=== PATIENT | male | born 1985 | race Caucasian/White ===

== ENCOUNTER 2025-05-26 20:07 | Emergency (ER) | payer OTHER, SELFPAY ==
[2025-05-26 20:15] VITALS: BP 155/99; PULSE 89; RESP 16; TEMP 36.6; O2SAT 97
--- NOTE | 2025-05-26 21:28 | ED_ITS ---
HPI - Dental/Oral General Chief complaint: Dental/Oral Stated complaint: dental pain Time Seen by Provider: 05/26/25 20:35 History of Present Illness HPI Narrative: 39-year-old male with history of trigeminal neuralgia status post surgery with remission presenting to the emergency department with dental pain. He has had on multiple dental surgeries and root canals before and feels like he needs another one. Contacted his on-call dentist and has an appointment tomorrow afternoon. Requesting something for pain relief around until then. Does not want antibiotics until then. Tried some oral Excedrin and Tylenol and or gel without any improvement. Has had pain relief with opiates before. No systemic symptoms. No traumatic injuries. Teeth map: 2 1. Pain with palpation without any abscess formation or periapical disease. Multiple other areas with previous root canal is and dental work done. Related Data Allergies Allergy/AdvReac Type Severity Reaction Status Date / Time No Known Allergies Allergy Verified 05/26/25 20:08 Exam 2 Narrative: GENERAL: [Well-appearing, well-nourished, and in no acute distress.] HEAD: [Normocephalic, atraumatic.] EYES: [PERRLA and EOMI.] ENT: Nares clear, no rhinorrhea or epistaxis. Mucous membranes moist. Posterior 1st molar has tenderness to palpation but no fluctuant masses or abscess formation. No periapical disease or no gingival disease. Other areas in the mouth with previous dental work, caps, root canal is noted. NECK: Supple. CHEST: Symmetric chest rise, no respiratory distress EXTREMITIES: Normal range of motion. [No edema.] SKIN: Warm, dry, no rash. NEURO: [No focal deficits]. Alert and oriented [x3.] PSYCH: [Normal mood and affect.] Course Vital Signs Vital signs: Vital Signs Temperature 36.6 C 05/26/25 20:15 Pulse Rate 89 05/26/25 20:15 Respiratory Rate 16 05/26/25 20:15 Blood Pressure 155/99 H 05/26/25 20:15 Pulse Oximetry 97 05/26/25 20:15 Oxygen Delivery Room Air 05/26/25 20:15 Temperature 36.6 C 05/26/25 20:15 Pulse Rate 89 05/26/25 20:15 Respiratory Rate 16 05/26/25 20:15 Blood Pressure 155/99 H 05/26/25 20:15 Pulse Oximetry 97 05/26/25 20:15 Oxygen Delivery Room Air 05/26/25 20:15 Procedures Nerve Block Nerve Block 1: Nerve block date: 05/26/25 Nerve block time: 22:15 Time out performed: Yes Local Anesthetic: bupivacaine 0.5% Amount of anesthesia used (mL): 5 Side: right Intraoral Nerve Block: superior alveolar and other (Posterior superior alveolar) Procedure Successful: Yes Patient Tolerated Procedure: well and no complications Complications: none MDM - Dental/Oral MDM Narrative Medical decision making narrative: 39-year-old male with history of trigeminal neuralgia status post surgery with remission presenting to the emergency department with dental pain. He has had on multiple dental surgeries and root canals before and feels like he needs another one. Contacted his on-call dentist and has an appointment tomorrow afternoon. Requesting something for pain relief around until then. Does not want antibiotics until then. Tried some oral Excedrin and Tylenol and or gel without any improvement. Has had pain relief with opiates before. No systemic symptoms. No traumatic injuries. Posterior 1st molar has tenderness to palpation but no fluctuant masses or abscess formation. No periapical disease or no gingival disease. Patient is hemodynamically stable. Offered the patient a posterior superior alveolar nerve block for pain control which he accepted after discussion. Also given a dose of oxycodone p.o.. Has an appointment with his dentist tomorrow and will discharge with several doses of oxycodone as needed for breakthrough pain until he can see them. Given return precautions and discharged afterwards. Discharge Plan Discharge Clinical Impression: Toothache Patient Disposition: Home Condition: Stable Instructions: Antibiotic Form, Toothache (ED) Additional Instructions: Dentist tomorrow. Return with any emergent concerns. We have sent some oxycodone to [facility] on [address] in [place]. Patient Language: Macedonian Prescriptions: New oxycodone 5 mg tablet 5 mg PO Q8H PRN (Reason: pain) Qty: 14 0RF Follow-up/Referrals: PHYSICIAN NOT ON STAFF,NONSTAFF [Primary Care Provider] Time of Disposition: 22:53
[2025-05-26] MEDS: oxyCODONE HCL (*CRX) 5 MG TAB IR PO (21:32)
== END 2025-05-26 23:00 | disposition home or self-care (01) ==
PROVIDERS: Emergency Provider Student in an Organized Health Care Education/Training Program
DX: K08.89 Other specified disorders of teeth and supporting structures (principal)
CPT/HCPCS: 64400; 99283; A9270

== ENCOUNTER 2025-05-28 23:26 | Emergency (ER) | payer OTHER, SELFPAY ==
[2025-05-28 23:30] VITALS: BP 182/98; PULSE 65; RESP 20; TEMP 36.5; O2SAT 100
--- NOTE | 2025-05-29 05:19 | ED.DENTAL ---
HPI - Dental/Oral General Chief complaint: Dental/Oral Stated complaint: dental pain Time Seen by Provider: 05/29/25 04:33 History of Present Illness HPI Narrative: 39-year-old male presenting with pain in his right jaw consistent with trigeminal neuralgia. Patient has a history of longstanding trigeminal neuralgia and previously had surgical operation of this in [place]. Has not had anybody to follow-up with him here and [place]. Previously been on medications for this but no longer taking it after he had successful surgery. Was here several days ago with a dental pain infection and underwent a root canal with his surgeon. Root canal successful and had extraction of disease and infection. Patient still completing his antibiotics but thinks that the infection and operation have now reached triggered his trigeminal neuralgia pain. Distribution of the V2 and V3 nerve root on the right side of his face and very sharp electrical sensations. States that within has helped him previously was ketamine but he was never tried on Tegretol sumatriptan or other therapies like gabapentin but has read about them. Asking about ketamine prescription. States the oxycodone he got prescribed by myself several days ago was not helping. Related Data Allergies Allergy/AdvReac Type Severity Reaction Status Date / Time No Known Allergies Allergy Verified 05/29/25 02:38 Review of Systems Review of Systems: As reviewed above in HPI Exam Narrative: GENERAL: [Well-appearing, well-nourished, and in no acute distress.] HEAD: [Normocephalic, atraumatic.] EYES: [PERRLA and EOMI.] ENT: Nares clear, no rhinorrhea or epistaxis. Mucous membranes moist. NECK: Supple. CHEST: [Clear to auscultation. No respiratory distress.] HEART: [Regular rate and rhythm]. No murmur heard. [Normal peripheral pulses.] ABDOMEN: [Soft, nondistended], [nontender], [No rigidity or guarding] EXTREMITIES: Normal range of motion. [No edema.] SKIN: Warm, dry, no rash. NEURO: [No focal deficits]. Alert and oriented [x3.] PSYCH: [Normal mood and affect.] Course Vital Signs Vital signs: Vital Signs Temperature 36.5 C 05/28/25 23:30 Pulse Rate 65 05/28/25 23:30 Respiratory Rate 20 05/28/25 23:30 Blood Pressure 182/98 H 05/28/25 23:30 Pulse Oximetry 100 05/28/25 23:30 Temperature 36.5 C 05/28/25 23:30 Pulse Rate 62 05/29/25 06:07 Respiratory Rate 18 05/29/25 06:07 Blood Pressure 176/91 H 05/29/25 06:07 Pulse Oximetry 99 05/29/25 06:07 MDM - Dental/Oral MDM Narrative Medical decision making narrative: 39-year-old male presenting with pain in his right jaw consistent with trigeminal neuralgia. Patient has a history of longstanding trigeminal neuralgia and previously had surgical operation of this in [place]. Has not had anybody to follow-up with him here and [place]. Previously been on medications for this but no longer taking it after he had successful surgery. Was here several days ago with a dental pain infection and underwent a root canal with his surgeon. Root canal successful and had extraction of disease and infection. Patient still completing his antibiotics but thinks that the infection and operation have now reached triggered his trigeminal neuralgia pain. Distribution of the V2 and V3 nerve root on the right side of his face and very sharp electrical sensations. States that within has helped him previously was ketamine but he was never tried on Tegretol sumatriptan or other therapies like gabapentin but has read about them. Asking about ketamine prescription. States the oxycodone he got prescribed by myself several days ago was not helping. Given patient's historical elements he likely does have recurrence of his trigeminal neuralgia pain. No further urgent or emergent workup needed at this juncture and we will treat him symptomatically. Will not be able to on her patient's inquiry about ketamine prescription and he will have to follow up with his specialist to get something along those lines but did offer him first-line therapy for trigeminal neuralgia which is Tegretol given a dose of 200 mg p.o. as well as sumatriptan subcutaneous injection. Will be discharged with Tegretol prescription and referral to Neurology here for follow-up. Medical Records Attestation: I reviewed the patient's medical records. Discharge Plan Discharge Clinical Impression: Trigeminal nerve disease Patient Disposition: Home Condition: Stable Instructions: Antibiotic Form, Carbamazepine (By mouth), Trigeminal Neuralgia (ED) Additional Instructions: Please follow-up with the provided neurologist for trigeminal neuralgia medication titration. You will ultimately need to be referred to a surgeon that can help with this most often located within the [facility] and [facility] systems. We have prescribed you Tegretol to try and take and be titrated outpatient for symptom control. Talk to your outpatient care providers for further interventions. Patient Language: Tamazight Prescriptions: New carbamazepine [Tegretol] 200 mg tablet 200 mg PO Q12H Qty: 60 0RF carbamazepine [Tegretol] 200 mg tablet 200 mg PO Q12H Qty: 60 0RF No Action oxycodone 5 mg tablet 5 mg PO Q8H PRN (Reason: pain) Qty: 14 0RF Follow-up/Referrals: PHYSICIAN,SILL WORKER [Primary Care Provider, Internal Medicine] Time of Disposition: 05:24
[2025-05-29 05:45] VITALS: BP 176/91; PULSE 62; RESP 18; O2SAT 99
[2025-05-29 06:07] VITALS: BP 176/91; PULSE 62; RESP 18; O2SAT 99
== END 2025-05-29 06:10 | disposition home or self-care (01) ==
PROVIDERS: Emergency Provider Student in an Organized Health Care Education/Training Program
DX: G50.0 Trigeminal neuralgia (principal)
CPT/HCPCS: 96372; 99283; A9270; J3030

== ENCOUNTER 2025-05-29 23:52 | Emergency (ER) | payer OTHER, SELFPAY ==
--- OUTSIDE RECORDS SUMMARY | 2025-05-29 23:53 | XMS_ITS | Continuity of Care Document ---
Author Name [facility] Organization [facility] Care Team Providers Care Coloring Room Man Name Role Phone [facility] Unavailable Unavailable Problems Combined list of problems from Department of Defense and Veterans Affairs facilities. It does not include entries that were removed or entered in error. 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 Unknown Organization Trigeminal neuralgia Active 08/19/19 [address] [place] [address] ASSESSMENT, POST-DEPLOYMENT, DOCUMENTED ON [id number] Inactive 08/23/19 19 Condition [facility] Encounter for issue of other medical certificate Inactive 05/28/20 18 Condition [facility] Malignant neoplasm of parotid gland Active 07/26/19 14 Condition Unknown Organization neck sprain Inactive Condition DoD parotid neoplasm Active Condition DoD otitis media acute serous right ear Inactive Condition DoD lump in / on the skin Inactive Condition [facility] visit for: services physical Inactive Condition [facility] visit for: services flight physical Inactive Condition DoD Cervical segmental dysfunction Active Condition [address] [place] [address] Degeneration of thoracic intervertebral disc Active Condition [address] [place] [address] Sacral somatic dysfunction Active Condition [address] [place] [address] Medications Combined list of outpatient medications from Department of Defense and Veterans Affairs facilities.Medications provided include 1) outpatient medications from the last 15 months, and 2) patient-reported medications. Medication Details Route Status Indication(s) Patie nt Instructions Prescription Expires Prescription Number Last Dispense Date Ordering Provider Order Date Order Qty Source acetaminoph en 325 mg oral tablet 2 tab(s), Oral, every 6 hr, PRN pain or fever, # 80 tab(s), 0 total refill(s ), Acute, 06/24/25 12:00:00 AM [employer], Pharmacy : [facility] #[id number] Oral (given by mouth) Ordered 06/24/20252024 80.0 0055C-3 [facility] acetaminoph en 325 mg oral tablet 2 tab(s), Oral, every 6 hr, PRN pain or fever, # 50 tab(s), 0 total refill(s ), Acute, 01/15/23 2:00:00 AM CDT, Pharmacy : [facility] Oral (given by mouth) Complet ed 01/15/2023 3 2022 50.0 1750C-D [facility] Afrin 0.05% nasal spray 2 spray(s) , Nostril- Both, BID, # 15 mL, 0 total refill(s ), Acute, Pharmacy : [facility] Nostri l-Both (into the nose) Complet ed 01/20/2021 1 2020 15.0 0014A-D [facility] amoxicillin 500 mg oral capsule 1 cap(s), Oral, TID, X 5 days, # 15 cap(s), 0 total refill(s ), Acute, 06/01/25 9:48:00 AM [employer], Pharmacy : [facility] #[id number], Dental infectio n, treatmen t Oral (given by mouth) Ordered 06/01/20252024 15.0 0055C-3 [facility] amoxicillin 500 mg oral capsule 1 cap(s), Oral, TID, X 5 days, # 15 cap(s), 0 total refill(s ), Acute, 01/13/23 11:48:00 AM CDT, Pharmacy : [facility] Oral (given by mouth) Complet ed 01/13/2023 3 2022 15.0 1750C-D [facility] amoxicillin 500 mg oral capsule 1 cap(s), Oral, TID, X 7 days, # 21 cap(s), 0 total refill(s ), Acute, 02/13/20 3:18:00 PM CDT, Route to [facility] Oral (given by mouth) Complet ed 02/13/2020 0 2019 21.0 1750D [facility] amoxicillin 500 mg oral capsule 1 cap(s), Oral, TID, Take 1 cap TID until gone., X 7 days, # 21 cap(s), 0 total refill(s ), Acute, 11/13/19 3:53:00 PM CDT, Route to [facility] Oral (given by mouth) Complet ed 11/13/2019 [address] [place] [address] Augmentin 875 mg-125 mg oral tablet 1 tab(s), Oral, every 12 hr, X 7 days, # 14 tab(s), 0 total refill(s ), Acute, 07/22/21 1:29:00 AM [employer], Pharmacy : [facility] Oral (given by mouth) Complet ed 07/22/2021 5 2020 14.0 0014A-D [facility] [place] Sinus Rinse Kit nasal powder for reconstitut ion See Instruct ions, Dissolve the contents of one packet in 8 oz of purified /filtere d water and instill into sinuses as directed , # 50 EA, 0 total refill(s ), [facility], Pharmacy : [facility] Ordered Acute upper respiratory infection, unspecified 5 2024 50.0 0055C-[address] [place] [address] Bactroban 2% topical ointment 1 appl(s), Topical, BID, Apply to both nostrils , # 22 g, 0 total refill(s ), Acute, Pharmacy : [facility] Topica l (on the skin) Complet ed 01/22/2021 1 2020 22.0 0014A-D [facility] betamethaso ne dipropionat e 0.05% topical cream 1 appl(s), Topical, Daily, APPLY TO AFFECTED AREA NIGHTLY FOR NO MORE THAN 2 WKS, # 15 g, 0 total refill(s ), Acute, Route to [facility] Topica l (on the skin) Complet ed Dermatitis, unspecified 05/08/20202019 15.0 0014C-D [facility] chlorhexidi ne 0.12% mucous membrane liquid 15 mL, Oral, BID, swish and spit; do not swallow, # 473 mL, 0 total refill(s ), [facility], [facility] pharmacy dispense (Rx) Oral (given by mouth) Discont inued 06/09/2021 0 2020 473.0 1750C-D [facility] Colace 100 mg oral capsule 1 cap(s), Oral, BID, PRN constipa tion, # 60 cap(s), 0 total refill(s ), [facility], Pharmacy : [facility] Oral (given by mouth) Complet ed 05/26/2023 3 2022 60.0 0014A-D [facility] diazePAM 10 mg oral tablet diazePAM 10 mg oral tablet Start Date: 03/09/19 Stop Date: 09/19/19 Status: Disconti dino Repeat number: 1 Discont inued 09/19/20192019 No Facilit y Access gabapentin 100 mg oral capsule 2 cap(s), Oral, TID, # 60 cap(s), 0 total refill(s ), [facility], Pharmacy : [facility] Oral (given by mouth) Complet ed 05/26/2023 3 2022 60.0 0014A-D [facility] gabapentin 300 mg oral capsule 1 cap(s), Oral, TID, # 270 cap(s), 3 total refill(s ), [facility], Pharmacy : [facility] Oral (given by mouth) Discont inued Encounter for issue of repeat prescription 03/04/2022 2 2021 270.0 0014C-D [facility] gabapentin 300 mg oral capsule 1 cap(s), Oral, TID, # 90 cap(s), 1 total refill(s ), Hard Stop, 10/30/21 6:21:35 PM CDT, Pharmacy : [facility] Oral (given by mouth) Complet ed Encounter for issue of repeat prescription 10/30/2021 2 2021 90.0 0014C-D [facility] gabapentin 300 mg oral capsule 1 cap(s), Oral, TID, # 90 cap(s), 0 total refill(s ), Hard Stop, 09/02/21 6:19:00 PM [employer], Pharmacy : [facility] Oral (given by mouth) Complet ed 09/03/2021 2 2021 90.0 0014C-D [facility] gabapentin 300 mg oral capsule 1 cap(s), Oral, TID, X 7 days, # 21 cap(s), 0 total refill(s ), Hard Stop, 08/07/21 3:53:20 PM [employer], Pharmacy : [facility] Oral (given by mouth) Complet ed 08/07/2021 2 2021 21.0 0014A-D [facility] gabapentin 300 mg oral capsule 1 cap(s), Oral, TID, # 90 cap(s), 3 total refill(s ), Hard Stop, 01/15/22 1:12:25 PM CDT, Pharmacy : [facility] Oral (given by mouth) Complet ed Encounter for issue of repeat prescription 01/15/2022 2 2021 90.0 0014C-D [facility] gabapentin 300 mg oral capsule 2 cap(s), Oral, TID, take two capsules by mouth three times per day, # 180 cap(s), 1 total refill(s ), Maintena nce, Pharmacy : [facility] Oral (given by mouth) Discont inued Atypical facial pain 03/04/20222021 180.0 0004C-A [facility]-C-42n [facility] gabapentin 300 mg oral capsule 1 cap(s), Oral, BID, # 540 cap(s), 1 total refill(s ), Maintena nce, Pharmacy : [facility] Oral (given by mouth) Discont inued Atypical facial pain 03/04/20222021 540.0 0014C-D [facility] gabapentin 300 mg oral capsule 2 cap(s), Oral, TID, take two capsules by mouth three times per day, # 540 cap(s), 1 total refill(s ), [facility], Pharmacy : [facility] Oral (given by mouth) Discont inued Atypical facial pain 08/19/2022 2 2022 540.0 0004C-A F-C-42n [facility] gabapentin 300 mg oral capsule See Instruct ions, take up to three capsules by mouth three times per day, as directed by your physicia n, # 810 cap(s), 2 total refill(s ), [facility], Pharmacy : [facility] Complet ed Atypical facial pain 05/26/2023 3 2022 810.0 0014C-D [facility] HYDROCODONE -ACETAMINOP HEN (HYDROCODON E/ACETAMINO PHEN), 7.5-325MG, TABLET, ORAL, MALLINCKROD T PH, 50 HYDROCOD ONE-ACET AMINOPHE N (HYDROCO DONE/SARA TAMINOPH EN), 7.5-325M G, TABLET, ORAL, MALLINCK RODT PH, 50 Start Date: 03/09/19 Stop Date: 09/19/19 Status: Disconti nuwarren Repeat number: 1 Discont inued 09/19/20192019 No Facilit y Access ibuprofen 600 mg oral tablet 1 tab(s), Oral, every 6 hr, # 40 tab(s), 0 total refill(s ), Acute, 06/24/25 12:00:00 AM [employer], Pharmacy : [facility] #[id number] Oral (given by mouth) Ordered 06/24/20252024 40.0 0055C-3 [facility] ibuprofen 600 mg oral tablet 1 tab(s), Oral, every 6 hr, # 40 tab(s), 0 total refill(s ), Acute, 01/15/23 2:00:00 AM CDT, Pharmacy : [facility] Oral (given by mouth) Complet ed 01/15/2023 3 2022 40.0 [facility] ibuprofen 800 mg oral tablet 1 tab(s), Oral, every 8 hr, # 30 tab(s), 0 total refill(s ), Acute, 08/20/19 2:00:00 AM [facility], [facility] pharmacy dispense (Rx) Oral (given by mouth) Complet ed 08/20/2019 0 2019 30.0 1750D [facility] ibuprofen 800 mg oral tablet 1 tab(s), Oral, every 8 hr, X 10 days, # 30 tab(s), 0 total refill(s ), Acute, 02/25/24 3:53:00 PM CDT, Pharmacy : [facility] Oral (given by mouth) Complet ed Acute nasopharyngiti s [common cold] 02/25/2024 4 2023 30.0 0014C-D [facility] ibuprofen 800 mg oral tablet 1 tab(s), Oral, every 8 hr, # 30 tab(s), 0 total refill(s ), Acute, 02/12/20 2:00:00 AM CDT, Route to [facility] Oral (given by mouth) Complet ed 02/12/2020 0 2019 30.0 [facility] ibuprofen 800 mg oral tablet 1 tab(s), Oral, every 8 hr, # 30 tab(s), 0 total refill(s ), Acute, 01/27/21 2:00:00 AM CDT, Pharmacy : [facility] Oral (given by mouth) Complet ed 01/27/2021 1 2020 30.0 0014A-D [facility] Keflex 500 mg oral capsule 1 cap(s), Oral, QID, X 7 days, # 28 cap(s), 0 total refill(s ), Acute, 09/26/19 12:32:00 PM [facility], [facility] pharmacy dispense (Rx) Oral (given by mouth) Complet ed Inflammatory disorders of scrotum 09/26/2019 0 2019 28.0 0014C-D [facility] Keflex 500 mg oral capsule 1 cap(s), Oral, QID, X 7 days, # 28 cap(s), 0 total refill(s ), Acute, 01/22/21 8:34:00 AM CDT, Pharmacy : [facility] Oral (given by mouth) Complet ed 01/22/2021 1 2020 28.0 0014A-D [facility] ketoconazol e 2% topical cream 1 appl(s), Topical, Daily, APPLY TO AFFECTED AREA DAILY AT NIGHT AFTER BATHING, # 15 g, 0 total refill(s ), Acute, Route to [facility] Topica l (on the skin) Complet ed Tinea cruris 05/08/2020 0 2019 15.0 0014C-D [facility] Mucinex D 60 mg-600 mg oral tablet, extended release 2 tab(s), Oral, BID, PRN congesti on, X 9 days, # 36 tab(s), 0 total refill(s ), Acute, Pharmacy : [facility] Oral (given by mouth) Discont inued Acute nasopharyngiti s [common cold] 02/15/20242023 36.0 0014C-D [facility] Mucinex D Max Strength 120 mg-1200 mg oral tablet, extended release 1 tab(s), Oral, every 12 hr, X 14 days, # 28 tab(s), 0 total refill(s ), Acute, Pharmacy : [facility] Oral (given by mouth) Complet ed Acute nasopharyngiti s [common cold] 02/29/2024 4 2023 28.0 0014C-D [facility] naloxone 4 mg/0.1 mL nasal spray See Instruct ions, [place] one dose in one nostril, may repeat every 2 to 3 minutes in alternat ing nostrils until patient responds or medical assistan ce becomes availabl e, # 2 EA, 0 total refill(s ), Maintena nce, Pharmacy : [facility] Complet ed 05/26/20232022 2.0 0014C-D [facility] Narcan 4 mg/0.1 mL nasal spray [2EA] See Rx Instruct ions, Nostril- Both, As Directed , # 2 EA, 0 total refill(s ), Hard Stop Nostri l-Both (into the nose) Discont inued 10/23/2022 3 2022 2.0 Ambul[facility] or[facility] Pharmac y [place] 10 mg-325 mg oral tablet 1 tab(s), Oral, every 4 hr, PRN pain (severe) , # 40 tab(s), 0 total refill(s ), Acute, 10/29/22 2:00:00 AM CDT, [facility] Oral (given by mouth) Complet ed 10/29/2022 3 2022 40.0 0014A-D [facility] [place] 5 mg-325 mg oral tablet 2 tab(s), Oral, every 4 hr, PRN pain, Take 1 tab at first, if not improvem ent after 30 min to 1 hr can take a 2nd tab. 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 not to exceed 8 tablets/ day, # 15 tab(s), 0 total refill(s ), Acute, 08/07/21 4:25:00 PM [employer], Pharmacy : [facility] Oral (given by mouth) Discont inued 08/07/2021 2 2021 15.0 0014A-D [facility] [place] 5 mg-325 mg oral tablet 2 tab(s), Oral, every 4 hr, PRN pain, Take 1 tab at first, if not improvem ent after 30 min to 1 hr can take a 2nd tab. 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 not to exceed 8 tablets/ day, # 5 tab(s), 0 total refill(s ), Acute, 08/12/21 2:00:00 AM [employer], Pharmacy : [facility] Oral (given by mouth) Complet ed 08/12/2021 2 2021 5.0 0014C-D [facility] [place] 5 mg-325 mg oral tablet 1 tab(s), Oral, every 4 hr, PRN pain, X 7 days, # 18 tab(s), 0 total refill(s ), Acute, 02/13/20 3:18:00 PM CDT, Route to [facility] Oral (given by mouth) Complet ed 02/13/2020 0 2019 18.0 1750C-D [facility] [place] 5 mg-325 mg oral tablet 1 tab(s), Oral, every 6 hr, PRN pain, Take 1 tab q4-6h prn pain not to exceed 8 tablets/ day., # 12 tab(s), 0 total refill(s ), Acute, 11/09/19 2:00:00 AM CDT, Route to [facility] Oral (given by mouth) Complet ed 11/09/2019 0 2019 12.0 1750-D [facility] oxyCODONE 5 mg oral tablet 1 tab(s), Oral, every 6 hr, PRN pain, # 20 tab(s), 0 total refill(s ), Acute, 01/22/21 2:00:00 AM CDT, Pharmacy : [facility] Oral (given by mouth) Complet ed 01/22/2021 1 2020 20.0 0014A-D [facility] PreviDent 5000 Plus topical paste See Instruct ions, Apply 1 pea sized amount to toothbru sh. [place] thorough ly at bedtime as directed by provider ., # 51 g, 2 total refill(s ), Eryn calix, [facility] pharmacy dispense (Rx) Ordered 0 2018 51.0 1750C-D [facility] Saline Mist 0.65% nasal spray 1 spray(s) , Nostril- Both, 8 times per day, PRN dry nasal passages , # 44 mL, 0 total refill(s ), Maintena fifi, Pharmacy : [facility] Nostri l-Both (into the nose) Discont inued 06/09/2021 1 2020 44.0 0014A-D [facility] triamcinolo ne 0.5% cream [15g] = 1 appl(s), Topical, # 15 g, 0 total refill(s ), Hard Stop Topica l (on the skin) Complet ed 04/08/20212020 15.0 Ambulat ory Pharmac y Tylenol 325 mg oral tablet 2 tab(s), Oral, every 4 hr, PRN pain or fever, # 50 tab(s), 0 total refill(s ), Acute, 01/27/21 2:00:00 AM CDT, Pharmacy : [facility] Oral (given by mouth) Complet ed 01/27/2021 1 2020 50.0 0014A-D [facility] Tylenol Caplet Extra Strength 500 mg oral tablet 1 tab(s), Oral, every 4 hr, PRN pain or fever, # 50 tab(s), 0 total refill(s ), Acute, 08/19/19 2:00:00 AM [employer], [facility] pharmacy dispense (Rx) Oral (given by mouth) Complet ed 08/19/2019 0 2019 50.0 1750D [facility] Tylenol with Codeine #3 oral tablet 1 tab(s), Oral, every 6 hr, PRN pain, Take one tab by mouth every 6 hr as needed for dental pain. not to exceed 4000 mg acetamin ophen per day, # 12 tab(s), 0 total refill(s ), Acute, [facility] Oral (given by mouth) Complet ed 02/12/2020 0 2019 12.0 0D [facility] Zofran ODT 4 mg oral tablet, disintegrat ing 1 tab(s), Oral, every 8 hr, PRN nausea/v omiting, X 3 days, # 9 tab(s), 0 total refill(s ), Acute, 08/07/21 4:57:00 PM [employer], Pharmacy : [facility] Oral (given by mouth) Complet ed 08/07/2021 2 2021 9.0 0014A-D [facility] Allergies, Adverse Reactions, Alerts Combined list of allergies from Department of Defense and Veterans Affairs facilities. It does not include entries that were removed or entered in error. Substance Category Reaction Severity Reaction type Status Date Reported Comments Source No Known Allergies Drug allergy (disorder) active 10/14/2022 [employer] Immunizations Combined list of available immunizations from the Department of Defense and Veterans Affairs facilities. 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 Status Comments Source typhoid vaccine, inactivated 2022 ESTRELLALUCER O Shoul breezy, right (delt oid) [id number] sanofi pasteur complet ed typhoid vaccine, inactivat ed 05/25/23 Given 0014C-D [facility] tetanus-dipht h toxoids (Td) adult/adol 2022 ESTRELLALUCER O Shoul breezy, right (delt oid) [id number] sanofi pasteur complet ed tetanus-d iphth toxoids (Td) adult/ado l 05/25/23 Given 0014C-D [facility] influenza virus vaccine, inactivated 2022 ESTRELLALUCER O Domenicaul breezy, left (delt oid) [id number] 150 [employer], Wink complet ed influenza virus vaccine, inactivat ed 05/25/23 Given 0014C-D [facility] meningococcal conjugate vaccine 2022 ESTRELLALUCER O Shoul breezy, left (delt oid) [id number] sanofi pasteur complet ed meningoco ccal conjugate vaccine 05/25/23 Given 0014C-D [facility] influenza virus vaccine, inactivated 2021 JACOBO Davis breezy, right (delt oid) [id number] ID [employer] complet ed influenza virus vaccine, inactivat ed 07/10/22 Given 0014C-D [facility] COVID Vaccine Moderna 2021 Walker Davis breezy, left (delt oid) [id number] Moderna [employer] complet ed COVID Vaccine Moderna 08/20/21 Given 0014C-D [facility] influenza virus vaccine, inactivated 2020 RONNIE NAZARIO 88 complet ed influenza virus vaccine, inactivat ed 07/04/21 Recorded 0014C-D [facility] typhoid vaccine, inactivated 2020 ALISHASMARSH Shoul breezy, right (delt oid) [id number] sanofi pasteur complet ed typhoid vaccine, inactivat ed 01/13/21 Given 0014C-D [facility] influenza virus vaccine, inactivated 2020 ALISHASMARSH Shoul breezy, right (delt oid) [id number] 141 [employer], [employer] complet ed influenza virus vaccine, inactivat ed 01/13/21 Given 0014C-D [facility] anthrax vaccine 2020 ALISHASMARSH Shoul breezy, right (delt oid) [id number] 24 Emergent [employer] Inc[employer] complet ed anthrax vaccine 01/13/21 Given 0014C-D [facility] COVID Vaccine Moderna 2020 GLORIAPPINEDA Shoul breezy, left (delt oid) [id number] 207 Moderna [employer] complet ed COVID Vaccine Moderna 08/29/20 Given 0014C-D [facility] COVID Vaccine Moderna 2020 STEVENYERA Shoul breezy, left (delt oid) [id number] 207 Moderna [place], Inc. complet ed COVID Vaccine Moderna 08/02/20 Given 0014C-D [facility] anthrax vaccine 2019 JOSLINESTRAUS S Shoul breezy, left (delt oid) [id number] 24 [employer] complet ed anthrax vaccine 12/26/19 Given 0014C-D [facility] anthrax vaccine 2018 [id number] 24 [employer] complet ed anthrax vaccine 10/28/18 Given 1750C-D [facility] anthrax vaccine 7 2018 [id number] 24 [employer] Sprague (MIP) complet ed anthrax vaccine DoD typhoid Vi capsular polysaccharid e vac 2018 [id number] sanofi pasteur complet ed typhoid Vi capsular polysacch aride vac 08/23/18 Given 1750C-D [facility] typhoid Vi capsular polysaccharid e vaccine 3 2018 [id number] Sanofi Pasteur (PMC) complet ed typhoid Vi capsular polysacch aride vaccine DoD measles virus vaccine 0 2017 05 () Not Given measles virus vaccine DoD rubella virus vaccine 0 2017 06 () Not Given rubella virus vaccine DoD mumps virus vaccine 0 2017 07 () Not Given mumps virus vaccine DoD measles/mumps /rubella virus vaccine 2017 [id number] Merck & Company Inc complet ed measles/m umps/rube lla virus vaccine 05/19/18 Given 1750C-D [facility] measles, mumps and rubella virus vaccine 1 2017 [id number] 03 Merck (MSD) complet ed measles, mumps and rubella virus vaccine DoD influenza, injectable, quadrivalent- pf 2017 [id number] 150 [employer] complet ed influenza , injectabl e, quadrival ent-pf 05/04/18 Given 1750C-D [facility] Influenza, injectable, quadrivalent, preservative free 7 2017 [id number] 150 Seqirus (SEQ) comple t ed Influenza , injectabl e, quadrival ent, preservat sanjana free DoD anthrax vaccine 2017 [id number] 24 [employer] complet ed anthrax vaccine 09/10/17 Given 1750C-D [facility] anthrax vaccine 6 2017 [id number] 24 [employer] (MIP) complet ed anthrax vaccine DoD Influenza, inj, MDCK, quadrivalent- pf 2016 [id number] 171 [employer] complet ed Influenza , inj, MDCK, quadrival ent-pf 07/05/17 Given 1750C-D [facility] meningococcal A,C,Y,W-135 (MCV4P) 2016 [id number] 114 sanofi pasteur complet ed meningoco ccal A,C,Y,W-1 35 (MCV4P) 07/05/17 Given 1750C-D [facility] meningococcal polysaccharid e (groups A, C, Y and W-135) diphtheria toxoid conjugate vaccine (MCV4P) 2 2016 [id number] 114 Sanofi Pasteur (PMC) complet ed meningoco ccal polysacch aride (groups A, C, Y and W-135) diphtheri a toxoid conjugate vaccine (MCV4P) DoD Influenza, injectable, Madin Aleah Canine Kidney, preservative free, quadrivalent 6 2016 [id number] Seqirus (SEQ) comple t ed Influenza , injectabl e, Madin [place] Canine Kidney, preservat sanjana free, quadrival ent DoD anthrax vaccine 2015 [id number] Emergent Biosolutions complet ed anthrax vaccine 07/08/16 Given 1750C-D avid [facility] anthrax vaccine 5 2015 [id number] 24 Emergent [employer] Sprague (MIP) complet ed anthrax vaccine DoD influenza, seasonal, injectable-pf 2015 [id number] Seqirus complet ed influenza , seasonal, injectabl e-pf 06/01/16 Given 1750C-D avid [facility] typhoid Vi capsular polysaccharid e vac 2015 [id number] 101 sanofi pasteur complet ed typhoid Vi capsular polysacch aride vac 06/01/16 Given 1750C-D avid [facility] typhoid Vi capsular polysaccharid e vaccine 2 2015 [id number] 101 Sanofi Pasteur (PMC) complet ed typhoid Vi capsular polysacch aride vaccine DoD Influenza, seasonal, injectable, preservative free 5 2015 [id number] 140 Seqirus (SEQ) comple t ed Influenza , seasonal, injectabl e, preservat sanjana free DoD anthrax vaccine 2015 [id number] 24 Emergent Bios[employer] complet ed anthrax vaccine 12/05/15 Given 1750C-D avid [facility] anthrax vaccine 4 2015 [id number] [employer] Sprague (MIP) complet ed anthrax vaccine DoD influenza, seasonal, injectable-pf 2014 [id number] 140 CSL Behring complet ed influenza , seasonal, injectabl e-pf 04/25/15 Given 1750C-D avid [facility] anthrax vaccine 2014 [id number] 24 Emergent [employer] complet ed anthrax vaccine 04/25/15 Given 1750C-D avid [facility] anthrax vaccine 3 2014 [id number] 24 [employer] Sprague (MIP) complet ed anthrax vaccine DoD Influenza, seasonal, injectable, preservative free 1 2014 [id number] 140 CSL [employer] (CSL) complet ed Influenza , seasonal, injectabl e, preservat sanjana free DoD anthrax vaccine 2014 [id number] 24 Emergent Biosolutions complet ed anthrax vaccine 09/20/14 Given 1750C-D avid [facility] anthrax vaccine 2 2014 [id number] 24 Emergent BioDefense [facility] ([facility]) complet ed anthrax vaccine DoD anthrax vaccine 2013 [id number] 24 Emergent Biosolutions complet ed anthrax vaccine 05/24/14 Given 1750C-D avid [facility] influenza, live, intranasal,qu adrivalent 2013 [id number] Medimmune Inc comple t ed influenza , live, intranasa l,quadriv alent 05/24/14 Given 1750C-D avid [facility] typhoid Vi capsular polysaccharid e vac 2013 [id number] 101 sanofi pasteur complet ed typhoid Vi capsular polysacch aride vac 05/24/14 Given 1750C-D avid [facility] yellow fever vaccine 2013 [id number] 37 sanofi pasteur complet ed yellow fever vaccine 05/24/14 Given 1750C-D avid [facility] anthrax vaccine 1 2013 [id number] 24 [facility] ([facility]) complet ed anthrax vaccine DoD yellow fever vaccine 1 2013 [id number] 37 Sanofi Pasteur (PMC) complet ed yellow fever vaccine DoD typhoid Vi capsular polysaccharid e vaccine 1 2013 [id number] 101 Sanofi Pasteur (PMC) complet ed typhoid Vi capsular polysacch aride vaccine DoD influenza, live, intranasal, quadrivalent 3 2013 [id number] 149 [employer] (MED) complet ed influenza , live, intranasa l, quadrival ent DoD hepatitis A-hepatitis B vaccine 2013 [id number] 104 GlaxoSmithKli tn complet ed hepatitis A-hepatit is B vaccine 10/19/13 Given 1750C-D avid [facility] hepatitis A and hepatitis B vaccine 0 2013 [id number] 104 [facility] ([facility] complet ed hepatitis A and hepatitis B vaccine DoD influenza, seasonal, injectable-pf 2012 [id number] 140 sanofi pasteur complet ed influenza , seasonal, injectabl e-pf 05/24/13 Given 1750C-D [facility] Influenza, seasonal, injectable, preservative free 0 2012 [id number] 140 Sanofi Pasteur ([facility]) complet ed Influenza , seasonal, injectabl e, preservat sanjana free DoD hepatitis A-hepatitis B vaccine 2011 [id number] 104 GlaxoSmithKli ne complet ed hepatitis A-hepatit is B vaccine 06/13/12 Given 1750C-D [facility] hepatitis A and hepatitis B vaccine 1 2011 [id number] 104 Feather[employer]Kline (SKB) complet ed hepatitis A and hepatitis B vaccine DoD hepatitis A-hepatitis B vaccine 2011 [id number] [id number] 104 GlaxoSmithKli ne complet ed hepatitis A-hepatit is B vaccine 04/27/12 Given 1750C-D [facility] hepatitis A and hepatitis B vaccine 1 2011 [id number] 104 SmithKline (SKB) complet ed hepatitis A and hepatitis B vaccine DoD tuberculin purified protein derivative 2011 [id number] 96 sanofi pasteur complet ed tuberculi n purified protein derivativ e 04/21/12 Given 1750C-D [facility] adenovirus vaccine, live 2011 [id number] 143 Teva Pharm[employer] ls complet ed adenoviru s vaccine, live 04/21/12 Given 1750C-D [facility] influenza, seasonal, injectable-pf 2011 [id number] 140 CSL Behring complet ed influenza , seasonal, injectabl e-pf 04/21/12 Given 1750C-D [facility] meningococcal A,C,Y,W-135 (MCV4P) 2011 [id number] 114 sanofi pasteur complet ed meningoco ccal A,C,Y,W-1 35 (MCV4P) 04/21/12 Given 1750C-D [facility] poliovirus vaccine, inactivated 2011 [id number] 10 sanofi pasteur complet ed polioviru s vaccine, inactivat ed 04/21/12 Given 1750C-D [facility] poliovirus vaccine, inactivated 1 2011 [id number] 10 Sanofi Pasteur ([facility]) complet ed polioviru s vaccine, inactivat ed DoD meningococcal polysaccharid e (groups A, C, Y and W-135) diphtheria toxoid conjugate vaccine (MCV4P) 1 2011 [id number] 114 Sanofi Pasteur (PMC) complet ed meningoco ccal polysacch aride (groups A, C, Y and W-135) diphtheri a toxoid conjugate vaccine (MCV4P) DoD tetanus toxoid, reduced diphtheria toxoid, and acellular pertu is vaccine, adsorbed 1 2011 [id number] 115 St[employer] (SKB) complet ed tetanus toxoid, reduced diphtheri a toxoid, and acellular pertussis vaccine, adsorbed DoD Influenza, seasonal, injectable, preservative free 1 2011 [id number] 140 [employer] (CSL) complet ed Influenza , seasonal, injectabl e, preservat sanjana free DoD Adenovirus, type 4 and type 7, live, oral 1 2011 [id number] 143 [employer] (BRR) complet ed Adenoviru s, type 4 and type 7, live, oral DoD tetanus, diphtheria, acellular pertu is 2011 PEDRO [id number] 115 EyefreightKli tn complet ed tetanus, diphtheri a, acellular pertussis 04/21/12 Recorded No Facilit y Access measles virus vaccine 0 2011 05 () Not Given measles virus vaccine DoD rubella virus vaccine 0 2011 06 () Not Given rubella virus vaccine DoD varicella virus vaccine 0 2011 21 () Not Given varicella virus vaccine DoD Results Combined list of recent chemistry, hematology and other laboratory results from [facility] and [facility], ranging from 15 months to all on record, depending upon the facility. Order Name Results Value Reference Range Date Interpretation Specimen Comments Source Molecular Infectiou s Disease Parainflue nza 4 Not Detected (10/06/24 8:56 AM) Not Detected 10/06 N [id number] [place] [address] [facility] Molecular Infectiou s Disease Respirator y Syncytial Virus Not Detected (10/06/24 8:56 AM) Not Detected 10/06 N [id number]-[id number] [place] [address] [facility] Molecular Infectiou s Disease Parainflue nza 2 Not Detected (10/06/24 8:56 AM) Not Detected 10/06 N - [address] [place] [address] Molecular Infectiou s Disease Parainflue nza 3 Not Detected (10/06/24 8:56 AM) Not Detected 10/[address] [place] [address] Molecular Infectiou s Disease Human Rhinovirus /Enterovir us Not Detected (10/06/24 8:56 AM) Not Detected 10/[address] [place] [address] Molecular Infectiou s Disease Coronaviru s HKU1 Not Detected (10/06/24 8:56 AM) Not Detected 10/[address] [place] [address] Molecular Infectiou s Disease Coronaviru s NL63 Not Detected (10/06/24 8:56 AM) Not Detected 10/[address] [place] [address] Molecular Infectiou s Disease Coronaviru s OC43 Not Detected (10/06/24 8:56 AM) Not Detected 10/[address] [place] [address] Molecular Infectiou s Disease Chlamydia pneumoniae Not Detected (10/06/24 8:56 AM) Not Detected 10/[address] [place] [address] Molecular Infectiou s Disease Coronaviru s 229E Not Detected (10/06/24 8:56 AM) Not Detected 10/[address] [place] [address] Molecular Infectiou s Disease Influenza B Not Detected (10/06/24 8:56 AM) Not Detected 10/[address] [place] [address] Molecular Infectiou s Disease Mycoplasma pneumoniae Not Detected (10/06/24 8:56 AM) Not Detected 10/[address] [place] [address] Molecular Infectiou s Disease Parainflue nza 1 Not Detected (10/06/24 8:56 AM) Not Detected 10/[address] [place] [address] Molecular Infectiou s Disease Human Metapneumo virus Not Detected (10/06/24 8:56 AM) Not Detected 10/06 N - [address] [place] [address] Molecular Infectiou s Disease Influenza A Not Detected (10/06/24 8:56 AM) Not Detected 10/06 N - [address] [place] [address] Molecular Infectiou s Disease SARS-CoV-2 PCR Not Detected 14 (10/06/24 8:56 AM) Not Detected 10/06 N Interpretiv e Data: The VideoStep COVID-19 Test contains three different assays (SARS-CoV-2 a, SARS-CoV-2d , SARS-CoV-2e ) for the detection of SARS-CoV-2. The [employer] Software interprets each of these assays independent ly and the results are combined as a final test result for the virus. SARS-CoV-2- Detected If two or more assays are 'Detected' the result on the test report will be 'Detected'. SARS-CoV-2- Not Detected-al l assays are 'Not Detected', the result on the test report will be 'Not Detected' SARS-CoV-2 Equivocal- Only one of three assays was D etected for the virus. The combination of D etected and N ot Detected assay results were inconclusiv e [address] [place] [address] Molecular Infectiou s Disease Adenovirus Not Detected (10/06/24 8:56 AM) Not Detected 10/06 N - [address] [place] [address] Molecular Infectiou s Disease Bordetella parapertus sis Not Detected (10/06/24 8:56 AM) Not Detected 10/[address] [place] [address] Molecular Infectiou s Disease Bordetella pertussis Not Detected (10/06/24 8:56 AM) Not Detected 10/[address] [place] [address] Molecular Infectiou s Disease Reason for Test? Screenin g (02/15/24 1:56 PM) 02/14 N -Da [facility] Molecular Infectiou s Disease SARS-CoV-2 PCR POSITIVE *ABN* (02/15/24 1:56 PM) 02/14 A 4A-Da [facility] Molecular Infectiou s Disease Influenza B PCR NEGATIVE (02/15/24 1:56 PM) 02/[address] [place] [address] Molecular Infectiou s Disease Influenza A PCR NEGATIVE (02/15/24 1:56 PM) 02/[address] [place] [address] Molecular Infectiou s Disease RESP SYNCYTIAL VIRUS PCR NEGATIVE (02/15/24 1:56 PM) 02/[address] [place] [address] Molecular Infectiou s Disease Streptococ cus pyogenes PCR Not Detected *NA* (02/15/24 1:56 PM) 02/[address] [place] [address] Infectiou s Disease HIV-1/O/2 Non-Reac tive 9 (05/27/23 9:52 AM) 05/27 N Interpretiv e Data: INTERPRETAT ION: This method is a screening procedure for the detection of HIV p24 Antigen and Antibodies to HIV-1, including Group O, and/or HIV-2. NON-REACTIV E: HIV-1 antigen and HIV-1 / HIV-2 antibodies were not detected. No laboratory evidence of HIV infection. A negative test result does not exclude the possibility of exposure to or infection with HIV. HIV antibodies and/or p24 antigen may be undetectabl e in some stages of the infection and in some clinical conditions. If acute HIV infection is suspected, consider submitting another specimen to a reference laboratory for HIV-1 RNA. SCREEN REACTIVE - CONFIRMATIO N TO FOLLOW: Possible presence of HIV-1antibo dies, HIV-2 antibodies and/or HIV-1 p24 antigen. Specimen will reflex to the confirmatio n testing that fulfills the Center for Disease Control and Prevention' s HIV diagnostic algorithm. Refer to [facility] Lab Guide for additional information : [email or web address] x Testing performed by Yan aguila. [id number] AFSAM EPILAB Hematolog y Neutrophil % Auto 66.0 % 45.5 - 74.0 10/23 N [facility] Hematolog y Imm. Granulocyt e Absolute 0.04 x10^9/L 0.00 - 0.75664 10/[address] [place] [address] Hematolog y Baso Absolute 0.07 x10^9/L 0.00 - 0.37542 10/[address] [place] [address] Hematolog y Lymph Absolute 2.45 x10^9/L 1.20 - 3.76876 10/[address] [place] [address] Hematolog y Neutro Absolute 6.72 x10^9/L 1.31 - 6.80352 10/[address] [place] [address] Hematolog y Eos Absolute 0.10 0.00 - 0.45 10/[address] [place] [address] Hematolog y Benson Absolute 0.79 x10^9/L 0.12 - 0.10403 10/[address] [place] [address] Hematolog y nRBC Absolute 0.00 x10^9/L 0.00 - 0.99548 10/[address] [place] [address] Hematolog y nRBC % Auto 0.0 % 10/[address] [place] [address] Hematolog y Imm. Granulocyt e % 0.4 % 10/[address] [place] [address] Hematolog y Basophil % Auto 0.7 % 0.0 - 1.0 10/[address] [place] [address] Hematolog y Lymphocyte % Auto 24.1 % 22.3 - 49.9 10/[address] [place] [address] Hematolog y Eosinophil % Auto 1.0 % 0.2 - 4.0 10/[address] Hematolog y Monocyte % Auto 7.8 % 1.0 - 8.0 10/[address] Chemistry Glucose Lvl 124 mg/dL 74 - 106 10/[address] [place] [address] Chemistry Potassium Lvl 3.8 mmol/L 3.5 - 5.1 10/[address] [place] [address] Chemistry Sodium 137 mmol/L 133 - 145 10/[address] [place] [address] Chemistry Calcium 8.6 mg/dL 8.6 - 10.2 10/[address] [place] [address] Chemistry Chloride 101 mmol/L 98 - 107 10/[address] [place] [address] Chemistry CO2 27 mmol/L 10/[address] [place] [address] Chemistry Osmo Calc 285 10/[address] [place] [address] Chemistry Creatinine Level 0.8 mg/dL 0.7 - 1.2 10/[address] [place] [address] Chemistry AGAP 9 10/23 Interpretiv e Data: ANION GAP A NORMALLY HIGH ANION GAP ACIDOSIS IN A PATIENT WITH HYPOALBUMIN AEMIA MAY APPEAR A NORMAL ANION GAP ACIDOSIS [address] [place] [address] Chemistry BUN 12 mg/dL 6 - 20 10/[address] [place] [address] Chemistry BUN/Creat Ratio 15 7 - 25 10/[address] [place] [address] Hematolog y MPV 11.1 fL 7.7 - 11.5 10/[address] [place] [address] Hematolog y RBC 4.47 x10^12/L 4.40 - 5.274311 10/[address] [place] [address] Hematolog y WBC 10.17 x10^9/L 4.40 - 11.23915 10/[address] [place] [address] Hematolog y Hematocrit 37.9 % 40.0 - 52.0 10/[address] [place] [address] Hematolog y Hemoglobin 13.2 g/dL 13.3 - 17.7 10/[address] [place] [address] Hematolog y MCH 29.5 pg 27.0 - 34.0 10/[address] [place] [address] Hematolog y MCV 84.8 fL 80.0 - 98.0 10/[address] [place] [address] Hematolog y RDW 12.8 % 11.5 - 14.5 10/23 N 4A-Da vid [facility] Hematolog y MCHC 34.8 g/dL 31.0 - 36.0 10/[address] [place] [address] Hematolog y Platelets 184 x10^9/L 150 - [id number] 10/[address] [place] [address] Coagulati on INR <0.930 0.930 - 1.200 10/[address] [place] [address] Coagulati on PT 12.70 s 12.50 - 15.20 10/[address] [place] [address] Coagulati on PTT 24.60 s 25.60 - 38.30 10/23 L Interpretiv e Data: NOTE: This critical value is for patients who are not on Heparin therapy. For patients on Heparin therapy, the critical high is anything above 70.[address] [place] [address] Chemistry eGFR CKD EPI 117 mL/min/1 .73_m2 10/23 Interpretiv e Data: Estimated Glomerular Filtration Rate (eGFR) calculated using the 2020 Chronic Kidney Disease-Epi demiology (CKD-EPI) Collaborati on creatinine equation; units of measure are mL/min/1.73 m2. Results are only valid for adults ( 1 8 years) whose serum creatinine is in steady state. eGFR calculation s are not valid for patients with acute kidney injury and for patients on dialysis. Creatinine- based estimates of kidney function may also be inaccurate in patients with reduced creatinine generation due to decreased muscle mass (e.g., malnutritio n, severe hypoalbumin emia, sarcopenia, chronic neuromuscul ar disease, amputations , severe heart failure or liver disease) and in patients with increased creatinine generation due to increased muscle mass (e.g., muscle builders, anabolic steroids) or increased dietary intake. As drug clearance is proportiona l to total GFR and not GFR indexed to body surface area (BSA), in individuals with a BSA substantial ly different than 1.73 m2, drug dosing should be based the reported eGFRvalue de-indexed from BSA by multiplying by the individual s BSA and dividing by 1.73. CKD is diagnosed based on abnormaliti es of kidney structure or function, present for >3 months, with implication s for health and disease. CKD is classified and staged based on cause, eGFR and albuminuria (quantified as urine albumin to creatinine ratio). An eGFR >60 mL/min/1.73 m2 in the absence of increased urine albumin excretion or structural abnormaliti es does not represent CKD.eGFR (mL/min/1.7 3 m2) CKD stage Interpretat ion 9 0 G1 Normal 60-89 G2 Mild decrease 45-59 G3A Mild to moderate decrease 30-44 G3B Moderate to severe decrease 15-29 G4 Severe decrease <15 G5 Kidney failure [address] [place] [address] Hematolog y nRBC Absolute 0.00 x10^9/L 0.00 - 0.44164 10/[address] [place] [address] Hematolog y nRBC % Auto 0.0 % 10/[address] [place] [address] Hematolog y Imm. Granulocyt e Absolute 0.10 x10^9/L 0.00 - 0.35736 10/[address] [place] [address] Hematolog y Baso Absolute 0.04 x10^9/L 0.00 - 0.16175 10/[address] [place] [address] Hematolog y Eos Absolute 0.01 0.00 - 0.45 10/[address] [place] [address] Hematolog y Lymphocyte % Auto 9.6 % 22.3 - 49.9 10/[address] [place] [address] Hematolog y Neutrophil % Auto 83.0 % 45.5 - 74.0 10/[address] [place] [address] Hematolog y Eosinophil % Auto 0.1 % 0.2 - 4.0 10/[address] [place] [address] Hematolog y Monocyte % Auto 6.4 % 1.0 - 8.0 10/[address] [place] [address] Hematolog y Basophil % Auto 0.3 % 0.0 - 1.0 10/[address] [place] [address] Hematolog y Neutro Absolute 13.19 x10^9/L 1.31 - 6.00911 10/[address] [place] [address] Hematolog y Imm. Granulocyt e % 0.6 % 10/[address] [place] [address] Hematolog y Benson Absolute 1.02 x10^9/L 0.12 - 0.24083 10/[address] [place] [address] Hematolog y Lymph Absolute 1.52 x10^9/L 1.20 - 3.37484 10/[address] [place] [address] Chemistry eGFR CKD EPI 118 mL/min/1 .73_m2 10/22 Interpretiv e Data: Estimated Glomerular Filtration Rate (eGFR) calculated using the 2020 Chronic Kidney Disease-Epi demiology (CKD-EPI) Collaborati on creatinine equation; units of measure are mL/min/1.73 m2. Results are only valid for adults ( 1 8 years) whose serum creatinine is in steady state. eGFR calculation s are not valid for patients with acute kidney injury and for patients on dialysis. Creatinine- based estimates of kidney function may also be inaccurate in patients with reduced creatinine generation due to decreased muscle mass (e.g., malnutritio n, severe hypoalbumin emia, sarcopenia, chronic neuromuscul ar disease, amputations , severe heart failure or liver disease) and in patients with increased creatinine generation due to increased muscle mass (e.g., muscle builders, anabolic steroids) or increased dietary intake. As drug clearance is proportiona l to total GFR and not GFR indexed to body surface area (BSA), in individuals with a BSA substantial ly different than 1.73 m2, drug dosing should be based the reported eGFRvalue de-indexed from BSA by multiplying by the individual s BSA and dividing by 1.73. CKD is diagnosed based on abnormaliti es of kidney structure or function, present for >3 months, with implication s for health and disease. CKD is classified and staged based on cause, eGFR and albuminuria (quantified as urine albumin to creatinine ratio). An eGFR >60 mL/min/1.73 m2 in the absence of increased urine albumin excretion or structural abnormaliti es does not represent CKD.eGFR (mL/min/1.7 3 m2) CKD stage Interpretat ion 9 0 G1 Normal 60-89 G2 Mild decrease 45-59 G3A Mild to moderate decrease 30-44 G3B Moderate to severe decrease 15-29 G4 Severe decrease <15 G5 Kidney failure [address] [place] [address] Chemistry AGAP 7 10/22 Interpretiv e Data: ANION GAP A NORMALLY HIGH ANION GAP ACIDOSIS IN A PATIENT WITH HYPOALBUMIN AEMIA MAY APPEAR A NORMAL ANION GAP ACIDOSIS [address] [place] [address] Chemistry Calcium 8.3 mg/dL 8.6 - 10.2 10/[address] [place] [address] Chemistry BUN 13 mg/dL 6 - 20 10/[address] [place] [address] Chemistry CO2 23 mmol/L 10/[address] [place] [address] Chemistry Chloride 106 mmol/L 98 - 107 10/[address] [place] [address] Chemistry Creatinine Level 0.8 mg/dL 0.7 - 1.2 10/[address] [place] [address] Chemistry Osmo Calc 285 10/[address] [place] [address] Chemistry BUN/Creat Ratio 16 7 - 25 10/[address] [place] [address] Chemistry Potassium Lvl 4.4 mmol/L 3.5 - 5.1 10/[address] [place] [address] Chemistry Glucose Lvl 144 mg/dL 74 - 106 10/[address] [place] [address] Chemistry Sodium 136 mmol/L 133 - 145 10/[address] [place] [address] Hematolog y Platelets 220 x10^9/L 150 - [phone] 10/[address] [place] [address] Hematolog y RDW 12.9 % 11.5 - 14.5 10/[address] [place] [address] Hematolog y MPV 11.0 fL 7.7 - 11.5 10/[address] [place] [address] Hematolog y Hematocrit 40.2 % 40.0 - 52.0 10/[address] [place] [address] Hematolog y Hemoglobin 14.3 g/dL 13.3 - 17.7 10/[address] [place] [address] Hematolog y MCH 29.8 pg 27.0 - 34.0 10/[address] [place] [address] Hematolog y MCV 83.8 fL 80.0 - 98.0 10/[address] [place] [address] Hematolog y MCHC 35.6 g/dL 31.0 - 36.0 10/[address] [place] [address] Hematolog y WBC 15.88 x10^9/L 4.40 - 11.59889 10/[address] [place] [address] Hematolog y RBC 4.80 x10^12/L 4.40 - 5.788859 10/[address] [place] [address] Coagulati on INR 1.010 0.930 - 1.200 10/[address] [place] [address] Coagulati on PT 14.10 s 12.50 - 15.20 10/[address] [place] [address] Coagulati on PTT 26.90 s 25.60 - 38.30 10/22 N Interpretiv e Data: NOTE: This critical value is for patients who are not on Heparin therapy. For patients on Heparin therapy, the critical high is anything above 70.[address] [place] [address] Infectiou s Disease MRSA by PCR Not Detected (10/21/22 12:49 PM) 10/[address] [place] [address] Blood Bank ABORh Retype O POS 10/[address] [place] [address] Blood Bank ABO/Rh Type O POS 10/[address] [place] [address] Blood Bank ABSC Negative ABSC (10/21/22 6:30 AM) 10/[address] [place] [address] Molecular Infectiou s Disease SARS-CoV-2 PCR Not Detected (10/20/22 3:25 PM) 10/[address] [place] [address] Molecular Infectiou s Disease Reason for Test? Screenin g (10/20/22 3:25 PM) 10/[address] [place] [address] Molecular Infectiou s Disease Reason for Test? Screenin g (10/13/22 2:12 PM) 10/13 N [address] [place] [address] Molecular Infectiou s Disease SARS-CoV-2 PCR Not Detected (10/13/22 2:12 PM) 10/[address] [place] [address] Hematolog y MPV 11.1 fL 7.7 - 11.5 10/[address] [place] [address] Hematolog y RDW 12.5 % 11.5 - 14.5 10/[address] [place] [address] Hematolog y Platelets 211 x10^9/L 150 - [id number] 10/[address] [place] [address] Hematolog y MCH 29.2 pg 27.0 - 34.0 10/[address] [place] [address] Hematolog y MCHC 34.2 g/dL 31.0 - 36.0 10/[address] [place] [address] Hematolog y Hemoglobin 14.9 g/dL 13.3 - 17.7 10/[address] [place] [address] Hematolog y Hematocrit 43.6 % 40.0 - 52.0 10/[address] [place] [address] Hematolog y MCV 85.3 fL 80.0 - 98.0 10/[address] [place] [address] Hematolog y WBC 4.89 x10^9/L 4.40 - 11.50284 10/[address] [place] [address] Hematolog y RBC 5.11 x10^12/L 4.40 - 5.212873 10/[address] [place] [address] Coagulati on INR 0.930 0.930 - 1.200 10/[address] [place] [address] Coagulati on PT 13.30 s 12.50 - 15.20 10/[address] [place] [address] Coagulati on Coag Therapy? Unknown (10/13/22 1:35 PM) 10/[address] Chemistry Potassium Lvl 3.7 mmol/L 3.5 - 5.1 10/[address] [place] [address] Chemistry Glucose Lvl 98 mg/dL 74 - 106 10/[address] [place] [address] Chemistry CO2 26 mmol/L 10/[address] [place] [address] Chemistry Chloride 104 mmol/L 98 - 107 10/[address] [place] [address] Chemistry Calcium 9.1 mg/dL 8.6 - 10.2 10/[address] [place] [address] Chemistry BUN 10 mg/dL 6 - 20 10/[address] [place] [address] Chemistry AGAP 11 10/13 Interpretiv e Data: ANION GAP A NORMALLY HIGH ANION GAP ACIDOSIS IN A PATIENT WITH HYPOALBUMIN AEMIA MAY APPEAR A NORMAL ANION GAP ACIDOSIS [address] [place] [address] Chemistry Creatinine Level 0.8 mg/dL 0.7 - 1.2 10/[address] [place] [address] Chemistry Osmo Calc 291 10/[address] [place] [address] Chemistry BUN/Creat Ratio 12 7 - 25 10/[address] [place] [address] Chemistry Sodium 141 mmol/L 133 - 145 10/[address] [place] [address] Coagulati on PTT 28.40 s 25.60 - 38.30 10/13 N Interpretiv e Data: NOTE: This critical value is for patients who are not on Heparin therapy. For patients on Heparin therapy, the critical high is anything above 70.[address] [place] [address] Hematolog y Imm. Granulocyt e Absolute 0.01 x10^9/L 0.00 - 0.43693 10/[address] [place] [address] Hematolog y nRBC Absolute 0.00 x10^9/L 0.00 - 0.76008 10/[address] [place] [address] Hematolog y nRBC % Auto 0.0 % 10/[address] [place] [address] Hematolog y Benson Absolute 0.41 x10^9/L 0.12 - 0.68389 10/[address] [place] [address] Hematolog y Baso Absolute 0.04 x10^9/L 0.00 - 0.20024 10/[address] [place] [address] Hematolog y Eos Absolute 0.15 0.00 - 0.45 10/[address] [place] [address] Hematolog y Lymph Absolute 1.72 x10^9/L 1.20 - 3.29512 10/[address] [place] [address] Hematolog y Neutro Absolute 2.56 x10^9/L 1.31 - 6.09183 10/[address] [place] [address] Hematolog y Imm. Granulocyt e % 0.2 % 10/[address] [place] [address] Hematolog y Basophil % Auto 0.8 % 0.0 - 1.0 10/[address] [place] [address] Hematolog y Lymphocyte % Auto 35.2 % 22.3 - 49.9 10/[address] [place] [address] Hematolog y Eosinophil % Auto 3.1 % 0.2 - 4.0 10/[address] [place] [address] Hematolog y Monocyte % Auto 8.4 % 1.0 - 8.0 10/[address] [place] [address] Hematolog y Neutrophil % Auto 52.3 % 45.5 - 74.0 10/[address] [place] [address] Chemistry eGFR CKD EPI 119 mL/min/1 .73_m2 10/13 Interpretiv e Data: Estimated Glomerular Filtration Rate (eGFR) calculated using the 2020 Chronic Kidney Disease-Epi demiology (CKD-EPI) Collaborati on creatinine equation; units of measure are mL/min/1.73 m2. Results are only valid for adults ( 1 8 years) whose serum creatinine is in steady state. eGFR calculation s are not valid for patients with acute kidney injury and for patients on dialysis. Creatinine- based estimates of kidney function may also be inaccurate in patients with reduced creatinine generation due to decreased muscle mass (e.g., malnutritio n, severe hypoalbumin emia, sarcopenia, chronic neuromuscul ar disease, amputations , severe heart failure or liver disease) and in patients with increased creatinine generation due to increased muscle mass (e.g., muscle builders, anabolic steroids) or increased dietary intake. As drug clearance is proportiona l to total GFR and not GFR indexed to body surface area (BSA), in individuals with a BSA substantial ly different than 1.73 m2, drug dosing should be based the reported eGFRvalue de-indexed from BSA by multiplying by the individual s BSA and dividing by 1.73. CKD is diagnosed based on abnormaliti es of kidney structure or function, present for >3 months, with implication s for health and disease. CKD is classified and staged based on cause, eGFR and albuminuria (quantified as urine albumin to creatinine ratio). An eGFR >60 mL/min/1.73 m2 in the absence of increased urine albumin excretion or structural abnormaliti es does not represent CKD.eGFR (mL/min/1.7 3 m2) CKD stage Interpretat ion 9 0 G1 Normal 60-89 G2 Mild decrease 45-59 G3A Mild to moderate decrease 30-44 G3B Moderate to severe decrease 15-29 G4 Severe decrease <15 G5 Kidney failure [facility] Hematolog y Platelets 221 x10^9/L 150 - [id number] 08/14 N [facility] Hematolog y MPV 12.4 fL 7.7 - 11.5 08/14 H [facility] Hematolog y RDW SD 38.1 08/14 [facility] Hematolog y RDW CV 13 % 12 - 14 08/14 N [facility] Hematolog y Hemoglobin 15.3 g/dL 13.3 - 17.7 08/14 N [facility] Hematolog y Hematocrit 42.7 % 40.0 - 52.0 08/14 N [facility] Hematolog y MCH 29.8 pg 27.0 - 34.0 08/14 N [facility] Hematolog y MCHC 35.8 g/dL 31.0 - 36.0 08/14 N [facility] Hematolog y MCV 83.2 fL 80.0 - 98.0 08/[address] [place] [address] Hematolog y WBC 6.40 x10^9/L 4.40 - 11.83380 08/[address] [place] [address] Hematolog y RBC 5.13 x10^12/L 4.40 - 5.152763 08/[address] [place] [address] Chemistry Protein Total 7.5 g/dL 6.6 - 8.7 08/[address] [place] [address] Chemistry Glucose Lvl 91 mg/dL 74 - 106 08/[address] [place] [address] Chemistry CO2 23 mmol/L 08/[address] [place] [address] Chemistry Sodium 143 mmol/L 133 - 145 08/[address] [place] [address] Chemistry Potassium Lvl 3.8 mmol/L 3.5 - 5.1 08/[address] [place] [address] Chemistry Chloride 105 mmol/L 98 - 107 08/[address] [place] [address] Chemistry Calcium 9.0 mg/dL 8.6 - 10.2 08/[address] [place] [address] Chemistry AST 46 U/L 0 - 41 08/[address] [place] [address] Chemistry ALT 55 U/L 0 - 41 08/[address] [place] [address] Chemistry BUN 9 mg/dL 6 - 20 08/[address] [place] [address] Chemistry Bilirubin Total 0.5 mg/dL 0.1 - 1.2 08/[address] [place] [address] Chemistry Alk Phos 60 U/L 40 - 129 08/[address] [place] [address] Chemistry Creatinine Level 0.7 mg/dL 0.7 - 1.2 08/[address] [place] [address] Chemistry A/G Ratio 1 meq/L 08/[address] [place] [address] Chemistry Albumin 4.4 g/dL 3.5 - 5.2 08/[address] [place] [address] Chemistry AGAP 15 08/14 Interpretiv e Data: ANION GAP A NORMALLY HIGH ANION GAP ACIDOSIS IN A PATIENT WITH HYPOALBUMIN AEMIA MAY APPEAR A NORMAL ANION GAP ACIDOSIS [address] [place] [address] Chemistry Osmo Calc 294 08/[address] [place] [address] Chemistry BUN/Creat Ratio 13 7 - 25 08/[address] [place] [address] Hematolog y Lymphocyte % Auto 31.7 % 22.3 - 49.9 08/[address] [place] [address] Hematolog y Basophil % Auto 0.6 % 0.0 - 1.0 08/[address] [place] [address] Hematolog y Neutro Absolute 3.69 x10^9/L 1.31 - 6.86384 08/[address] [place] [address] Hematolog y Monocyte % Auto 7.7 % 1.0 - 8.0 08/[address] [place] [address] Hematolog y Eosinophil % Auto 2.2 % 0.2 - 4.0 08/[address] [place] [address] Hematolog y Neutrophil % Auto 57.6 % 45.5 - 74.0 08/[address] [place] [address] Hematolog y Lymph Absolute 2.03 x10^9/L 1.20 - 3.50088 08/[address] [place] [address] Hematolog y Benson Absolute 0.49 x10^9/L 0.12 - 0.87132 08/[address] [place] [address] Hematolog y Eos Absolute 0.14 0.00 - 0.45 08/[address] [place] [address] Hematolog y Baso Absolute 0.04 x10^9/L 0.00 - 0.64584 08/[address] [place] [address] Chemistry eGFR CKD EPI 123 mL/min/1 .73_m2 08/14 Interpretiv e Data: Estimated Glomerular Filtration Rate (eGFR) calculated using the 2020 Chronic Kidney Disease-Epi demiology (CKD-EPI) Collaborati on creatinine equation; units of measure are mL/min/1.73 m2. Results are only valid for adults ( 1 8 years) whose serum creatinine is in steady state. eGFR calculation s are not valid for patients with acute kidney injury and for patients on dialysis. Creatinine- based estimates of kidney function may also be inaccurate in patients with reduced creatinine generation due to decreased muscle mass (e.g., malnutritio n, severe hypoalbumin emia, sarcopenia, chronic neuromuscul ar disease, amputations , severe heart failure or liver disease) and in patients with increased creatinine generation due to increased muscle mass (e.g., muscle builders, anabolic steroids) or increased dietary intake. As drug clearance is proportiona l to total GFR and not GFR indexed to body surface area (BSA), in individuals with a BSA substantial ly different than 1.73 m2, drug dosing should be based the reported eGFRvalue de-indexed from BSA by multiplying by the individual s BSA and dividing by 1.73. CKD is diagnosed based on abnormaliti es of kidney structure or function, present for >3 months, with implication s for health and disease. CKD is classified and staged based on cause, eGFR and albuminuria (quantified as urine albumin to creatinine ratio). An eGFR >60 mL/min/1.73 m2 in the absence of increased urine albumin excretion or structural abnormaliti es does not represent CKD.eGFR (mL/min/1.7 3 m2) CKD stage Interpretat ion 9 0 G1 Normal 60-89 G2 Mild decrease 45-59 G3A Mild to moderate decrease 30-44 G3B Moderate to severe decrease 15-29 G4 Severe decrease <15 G5 Kidney failure [facility]14[facility] Infectiou s Disease HIV-1/O/2. EPI NON-REAC TIVE 03/14 Result Comment: INTERPRETAT ION(S): This method is a screening procedure for the detection of HIV p24 Antigen and Antibodies to HIV-1, including Group O, and/or HIV-2. NON-REACTIV E: HIV-1 antigen and HIV-1 / HIV-2 antibodies were not detected. No laboratory evidence of HIV infection. A negative test results does not exclude the possibility of exposure to or infection with HIV. HIV antibodies and/or p24 antigen may be undetectabl e in some stages of the infection and in some clinical conditions. If acute HIV infection is suspected, consider submitting another specimen to a reference laboratory for HIV-1 RNA. SCREEN REACTIVE - CONFIRMATIO N TO FOLLOW: Possible presence of HIV-1 antibodies, HIV-2 antibodies and/or HIV-1 p24 antigen. Specimen will reflex to the confirmatio n testing that fulfills the Center for Disease Control and Prevention' s HIV diagnostic algorithm. Refer to [facility] Lab Guide for additional information : [email or web address]/k [email or web address]/[email or web address] [place] [email or web address]/lab _[email or web address] Testing performed by [employer] [facility]ma delia aguila. Performed by: Epidemiolog y Laboratory Service [facility]/Critical access hospital [id number] [place] [address], [place] [id number] [facility] Molecular Infectiou s Disease SARS-CoV-2 PCR Not Detected 15 (01/13/21 1:32 PM) 01/13 N Interpretiv e Data: Food and Drug Administrat ion (FDA): This test has not been FDA cleared or approved; Emergency Use Authorizati on (EUA): This test has been authorized by FDA under an EUA for use by authorized laboratorie s; This test has been authorized only for the detection of nucleic acid from SARS-CoV-2, not for any other viruses or pathogens; and this test is only authorized for the duration of the declaration that circumstanc es exist justifying the authorizati on of emergency use of in vitro diagnostic tests for detection and/or diagnosis of COVID-19 under Section 564(b)(1) of the Act, 21 U.S.C. 360bbb-3(b )(1), unless the authorizati on is terminated or revoked sooner. A laboratory result of Detected is indicative of the presence of SARS-CoV-2 RNA and does not rule out bacterial infection or co-infectio n with other viruses. Clinical correlation with patient history and other diagnostic information is necessary to determine patient infection status. A laboratory result of Not Detected does not conclusivel y rule out disease. Clinical correlation is recommended . Test Performed at: [facility] [address] [place] [address] Phone: P[employer] Supervisor: Col Dr. Thomas King, Laboratory [facility] Molecular Infectiou s Disease Reason for Test? Shaunna bedolla (01/13/21 1:32 PM) 01/[address] [place] [address] Vital Signs Combined list of inpatient and outpatient Vital Signs from [employer] and [employer], ranging from 12 months to all on record, depending upon the facility. Vital Sign Value Date Comments Source Heart Rate Monitored 96 bpm 10/22/2022 15:00:[address] [place] [address] Temperature Temporal Artery 36.5 Adalgisa 10/22/2022 15:00:[address] [place] [address] Temperature Oral 37.1 Adalgisa 10/23/2022 18:36:[address] [place] [address] Peripheral Pulse Rate 88 bpm 10/23/2022 18:36:[address] [place] [address] Mean Arterial Pressure, Cuff (Calc) 97 mm[Hg] 10/23/2022 18:36:[address] [place] [address] Apical Heart Rate 73 bpm 01/15/2021 15:45:[address] [place] [address] Respiratory Rate 16 br/min 10/23/2022 14:39:[address] [place] [address] Blood Pressure Method Automatic 10/23/2022 14:39:[address] [place] [address] Blood Pressure Location Left arm 10/24/19 14:39:[address] [place] [address] Cuff Size Medium 10/23/2022 14:39:[address] [place] [address] Temperature Oral 36.9 Adalgisa 10/23/2022 14:39:[address] [place] [address] BP Site Left arm 08/08/2021 18:37:[address] [place] [address] Blood Pressure Manual Automatic 08/08/2021 18:37:[address] [place] [address] Heart Rate Monitored 103 bpm 10/22/2022 12:00:[address] [place] [address] Temperature Temporal Artery 36.5 Adalgisa 10/22/2022 12:00:[address] [place] [address] Blood Pressure Method Automatic 10/22/2022 18:11:[address] [place] [address] Blood Pressure Location Left arm 10/23/19 18:11:[address] [place] [address] Cuff Size Medium 10/22/2022 18:11:[address] [place] [address] Temperature Temporal Artery 36.9 Adalgisa 10/22/2022 18:11:[address] [place] [address] Mean Arterial Pressure, Cuff (Calc) 103 mm[Hg] 01/11/2024 15:31:[address] [place] [address] Systolic Blood Pressure 134 mm[Hg] 01/11/20 24 15:31:[address] [place] [address] Diastolic Blood Pressure 87 mm[Hg] 024 15:31:[address] [place] [address] Respiratory Rate 16 br/min 10/06/2024 15:10:00 [facility] Peripheral Pulse Rate 91 bpm 10/06/2024 15:10:00 [facility] Mean Arterial Pressure, Cuff (Calc) 109 mm[Hg] 10/06/2024 15:10:00 [facility] Systolic Blood Pressure 135 mm[Hg] 10/07/19 15:10:00 [facility] Diastolic Blood Pressure 96 mm[Hg] 025 15:10:00 [facility] Blood Pressure Manual Automatic 10/06/2024 15:10:00 [facility] BP Site Right arm 10/06/2024 15:10:00 [facility] Temperature Oral 37.1 Adalgisa 10/06/2024 15:10:00 [facility] Temperature Temporal Artery 36.9 Adalgisa 10/22/2022 16:31:[address] [place] [address] Heart Rate Monitored 102 bpm 10/22/2022 16:31:[address] [place] [address] Temperature Temporal Artery 36.5 Adalgisa 10/22/2022 16:00:[address] [place] [address] Temperature Tympanic 37 Adalgisa 08/04/2021 22:28:[address] [place] [address] Apical Heart Rate 64 bpm 01/15/2021 13:16:[address] [place] [address] Mean Arterial Pressure, Cuff (Calc) 101 mm[Hg] 11/04/2022 20:32:[address] [place] [address] Peripheral Pulse Rate 63 bpm 11/04/2022 20:32:[address] [place] [address] Respiratory Rate 20 br/min 11/04/2022 20:32:[address] [place] [address] Systolic Blood Pressure 129 mm[Hg] 11/05/19 20:32:[address] [place] [address] Diastolic Blood Pressure 87 mm[Hg] 023 20:32:[address] [place] [address] Temperature Temporal Artery 36.8 Adalgisa 11/04/2022 20:32:[address] [place] [address] BP Site Left arm 11/04/2022 20:32:[address] [place] [address] Blood Pressure Manual Automatic 11/04/2022 20:32:[address] [place] [address] Temperature Oral 36.8 Adalgisa 10/11/2024 13:11:00 [facility] Mean Arterial Pressure, Cuff (Calc) 104 mm[Hg] 10/11/2024 13:11:00 [facility] Respiratory Rate 15 br/min 10/11/2024 13:11:00 [facility] Peripheral Pulse Rate 101 bpm 10/11/2024 13:11:00 [facility] Systolic Blood Pressure 135 mm[Hg] 10/12/19 25 13:11:00 [facility] Diastolic Blood Pressure 88 mm[Hg] 025 13:11:00 [facility] Temperature Temporal Artery 37.2 Adalgisa 10/22/2022 08:00:[address] [place] [address] Heart Rate Monitored 114 bpm 10/22/2022 08:00:[address] [place] [address] Apical Heart Rate 69 bpm 01/15/2021 15:55:[address] [place] [address] Systolic Blood Pressure 122 mm[Hg] 05/26/20 17:17:[address] [place] [address] Diastolic Blood Pressure 81 mm[Hg] 023 17:17:[address] [place] [address] BP Site Right arm 05/26/2023 17:17:[address] [place] [address] Respiratory Rate 16 br/min 05/26/2023 17:17:[address] [place] [address] Mean Arterial Pressure, Cuff (Calc) 95 mm[Hg] 05/26/2023 17:17:[address] [place] [address] Peripheral Pulse Rate 75 bpm 05/26/2023 17:17:[address] [place] [address] Blood Pressure Manual Automatic 05/26/2023 17:17:[address] [place] [address] Heart Rate Monitored 95 bpm 10/22/2022 13:00:[address] [place] [address] Systolic Blood Pressure Invasive 196 mm[Hg] 10/21/2022 20:04:[address] [place] [address] Diastolic Blood Pressure Invasive 101 mm[Hg] 10/21/2022 20:04:[address] [place] [address] Apical Heart Rate 67 bpm 01/15/2021 16:15:[address] [place] [address] BP Site Right arm 10/13/2022 21:38:[address] [place] [address] Blood Pressure Manual Automatic 10/13/2022 21:38:[address] [place] [address] BP Site Right arm 09/11/2021 19:03:[address] [place] [address] Blood Pressure Manual Automatic 09/11/2021 19:03:[address] [place] [address] Systolic Blood Pressure 145 mm[Hg] 01/10/20 07:41:[address] [place] [address] Diastolic Blood Pressure 89 mm[Hg] 023 07:41:[address] [place] [address] Mean Arterial Pressure, Cuff (Calc) 108 mm[Hg] 01/09/2023 07:41:[address] [place] [address] Peripheral Pulse Rate 75 bpm 01/09/2023 07:41:[address] [place] [address] Respiratory Rate 18 br/min 01/09/2023 07:41:[address] [place] [address] Apical Heart Rate 66 bpm 01/15/2021 16:00:[address] [place] [address] Heart Rate Monitored 99 bpm 10/22/2022 14:00:[address] [place] [address] Blood Pressure Method Automatic 10/22/2022 22:27:[address] [place] [address] Blood Pressure Location Left arm 10/23/19 22:27:[address] [place] [address] Cuff Size Medium 10/22/2022 22:27:[address] [place] [address] Temperature Oral 36.9 Adalgisa 01/09/2023 05:30:[address] [place] [address] Systolic Blood Pressure 148 mm[Hg] 01/10/20 05:30:[address] [place] [address] Diastolic Blood Pressure 101 mm[Hg] 023 05:30:[address] [place] [address] Peripheral Pulse Rate 68 bpm 01/09/2023 05:30:[address] [place] [address] Respiratory Rate 18 br/min 01/09/2023 05:30:[address] [place] [address] Temperature Oral 37.2 Adalgisa 10/23/2022 06:33:[address] [place] [address] Blood Pressure Method Automatic 10/23/2022 06:33:[address] [place] [address] Blood Pressure Location Left arm 10/24/19 06:33:[address] [place] [address] Cuff Size Medium 10/23/2022 06:33:[address] [place] [address] Heart Rate Monitored 111 bpm 10/22/2022 09:00:[address] [place] [address] Temperature Temporal Artery 37.2 Adalgisa 10/22/2022 09:00:[address] [place] [address] Heart Rate Monitored 104 bpm 10/22/2022 16:00:[address] [place] [address] Apical Heart Rate 74 bpm 01/15/2021 15:50:[address] [place] [address] Blood Pressure Manual Automatic 08/20/2021 18:24:[address] [place] [address] BP Site Left arm 08/20/2021 18:24:[address] [place] [address] Temperature Tympanic 36.7 Adalgisa 08/20/2021 18:24:[address] [place] [address] Temperature Tympanic 36.4 Adalgisa 09/22/2022 21:55:[address] [place] [address] Heart Rate Monitored 107 bpm 10/22/2022 11:00:[address] [place] [address] Temperature Temporal Artery 36.8 Adalgisa 10/22/2022 11:00:[address] [place] [address] Blood Pressure Location Left arm 10/24/19 10:37:[address] [place] [address] Blood Pressure Method Automatic 10/23/2022 10:37:[address] [place] [address] Cuff Size Medium 10/23/2022 10:37:[address] [place] [address] Temperature Oral 37.4 Adalgisa 10/23/2022 10:37:[address] [place] [address] Temperature Oral 36.8 Adalgisa 11/06/2024 15:58:00 [facility] Respiratory Rate 18 br/min 11/06/2024 15:58:00 [facility] Blood Pressure Manual Automatic 11/06/2024 15:58:00 [facility] BP Site Left arm 11/06/2024 15:58:00 [facility] Peripheral Pulse Rate 86 bpm 11/06/2024 15:58:00 [facility] Mean Arterial Pressure, Cuff (Calc) 104 mm[Hg] 11/06/2024 15:58:00 [facility] Systolic Blood Pressure 135 mm[Hg] 11/07/19 15:58:00 [facility] Diastolic Blood Pressure 89 mm[Hg] 15:58:00 [facility] Temperature Tympanic 36.4 Adalgisa 08/04/2021 19:35:[address] [place] [address] Blood Pressure Method Automatic 01/15/2021 15:40:[address] [place] [address] Blood Pressure Location Left arm 01/16/20 15:40:[address] [place] [address] Cuff Size Medium 01/15/2021 15:40:[address] [place] [address] Apical Heart Rate 78 bpm 01/15/2021 15:40:[address] [place] [address] Cuff Size Medium 10/23/2022 03:20:[address] [place] [address] Blood Pressure Location Left arm 10/24/19 03:20:[address] [place] [address] Blood Pressure Method Automatic 10/23/2022 03:20:[address] [place] [address] Heart Rate Monitored 105 bpm 10/22/2022 10:00:[address] [place] [address] Temperature Temporal Artery 36.7 Adalgisa 10/22/2022 10:00:[address] [place] [address] Apical Heart Rate 70 bpm 01/15/2021 16:30:[address] [place] [address] Systolic Blood Pressure 142 mm[Hg] 04/25/20 17:26:[address] [place] [address] Diastolic Blood Pressure 98 mm[Hg] 024 17:26:[address] [place] [address] Blood Pressure Manual Automatic 04/25/2024 17:26:[address] [place] [address] Peripheral Pulse Rate 98 bpm 04/25/2024 17:26:[address] [place] [address] Mean Arterial Pressure, Cuff (Calc) 113 mm[Hg] 04/25/2024 17:26:[address] [place] [address] Respiratory Rate 16 br/min 04/25/2024 17:26:[address] [place] [address] BP Site Right arm 04/25/2024 17:26:[address] [place] [address] Temperature Oral 36.8 Adalgisa 04/25/2024 17:26:[address] [place] [address] Mean Arterial Pressure, Cuff (Calc) 104 mm[Hg] 02/15/2024 21:13:[address] [place] [address] Peripheral Pulse Rate 78 bpm 02/15/2024 21:13:[address] [place] [address] Respiratory Rate 18 br/min 02/15/2024 21:13:[address] [place] [address] Temperature Oral 36.3 Adalgisa 02/15/2024 21:13:[address] [place] [address] Systolic Blood Pressure 137 mm[Hg] 02/15/20 24 21:13:[address] [place] [address] Diastolic Blood Pressure 88 mm[Hg] 024 21:13:[address] [place] [address] Encounters Combined list of: 1) Encounters from Department of [facility] Affairs facilities going backup to the last 18 months, not all VA inpatient encounters are included; 2) Encounters from the Department of Defense facilities going backup to 280 months. Location Location Details Encounter Type Encounter Number Reason For Visit Attending Provider ADM Date DC Date Status Disposition Source [facility] [place] [address] OUTPATIENT [id number] INITIAL IFC III RENA XIONG JR 05/03 Released w/o Limitations [facility] [place] [address](Z Flight Medicin e Shea Patton d) [facility] [place] [address](Opt ometry [facility] Abdi) OUTPATIENT [id number] Notes Entered by: REFUGIO HUDSON 04 May 2012 1043 ------- ------- ------- ------- -- Red Lens test COLLIN VIRGILIORANDEE WALTERS 05/04 [facility]ased w/o Limitations [facility] [place] [address](O ptometr y [facility] Abdi) [facility] [place] [address](Counts include 234 beds at the [facility]) OUTPATIENT [id number] Notes Entered by: ANJU HOOD 27 Jun 2012 0738 ------- ------- ------- ------- -- 0900 R ear 324/030 /8 CAPRI STERN 06/27 [facility]ased w/o Limitations [facility] [place] [address]([facility] Shea Patton) [facility] [place] [address]([place] laryngolo gy (ENT) [facility]) OUTPATIENT [id number] lump in / on the skin ED BABCOCK P 08/04 Released w/o Limitations [facility] [place] [address](O tolaryn gology (ENT) [facility]) [facility] [place] [address](And[place] laryngolo gy (ENT) [facility]) OUTPATIENT [id number] f/u neck bx ED BABCOCK P 08/26 Released w/o Limitations [place] [address](O tolaryn gology (ENT) [facility]) [facility] [place] [address]([facility]) OUTPATIENT [id number] Neck pain MICHAEL FERNANDEZ 09/22 Released w/o Limitations [place] [address](Z Flight Medicin e Shea Patton) [facility]) TELE CONSULT [id number] Notes Entered by: PAOLA MOMIN 08 Nov 2013 0918 ------- ------- ------- ------- -- Pt states needs labs for STDs CLIFTON JENKINS 11/08 Released to Self Care [employer](F light Medicin e Clinic) [employer] OUT[facility]IENT [id number] Notes Entered by: Lasha HENRIQUEZ 09 Nov 2013 1354 ------- ------- ------- ------- -- RTFS GREGG COURTNEY 11/09 Released w/o Limitations [employer](F light Medicin e Clinic) [employer]([facility]) OUTPATIENT [id number] FOLLOW UP BINTA PEDERSON 11/16 Released w/o Limitations [employer](F light Medicin e Clinic) [employer]([facility]) OUTPATIENT [id number] Notes Entered by: TERESA LIRA 16 Nov 2013 0923 ------- ------- ------- ------- -- STI Intervi ew and Educati on RUDYCASSI Esa 11/16 Released w/o Limitations [facility]) [facility] Medical In/Out Processin g) OUTPATIENT [id number] [facility] AMPARO MORENO 05/22 Released w/o Limitations [facility](CAF B Medical In/Out Process ing) [facility] Flight Medicine( Phy Exam)) OUTPATIENT [id number] Flight phys/pe r AMPARO Melendez 05/23 Released w/o Limitations [facility](CAF B Flight Medicin e(Phy Exam)) [facility] Flight Medicine( Phy Exam)) OUTPATIENT [id number] Notes Entered by: ELAN NASSAR 13 Jun 2014 0908 ------- ------- ------- ------- -- pre surgery AMPARO MORENO 06/13 Released with Work/Duty Limitations [facility](CAF B Flight Medicin e(Phy Exam)) [facility] [place]([facility] Flight Medicine( Phy Exam)) TELE CONSULT [id number] Notes Entered by: LAZO 28 Jun 2014 1653 ------- ------- ------- ------- -- 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 AMPARO MORENO 06/28 [facility](CAF B Flight Medicin e(Phy Exam)) [facility] n([facility] Flight Medicine( Phy Exam)) TELE CONSULT [id number] Notes Entered by: Lasha KNOTT 06 Jul 2014 1116 ------- ------- ------- ------- -- Network Results - ENT 4 AMPARO MORENO 07/06 [facility](CAF B Flight Medicin e(Phy Exam)) [facility] n([facility] Flight Medicine( Phy Exam)) TELE CONSULT [id number] Notes Entered by: LG TERRY 06 Jul 2014 1204 ------- ------- ------- ------- -- ENT Notes AMPARO MORENO 07/06 [facility](CAF B Flight Medicin e(Phy Exam)) [facility] n([facility] Flight Medicine( Phy Exam)) OUTPATIENT [id number] f/u ENT at 1030 AMPARO MORENO 07/09 Released with Work/Duty Limitations [facility](CA[facility] B Flight Medicin e(Phy Exam)) [facility] [place]([facility] Flight Medicine( Phy Exam)) TELE CONSULT [id number] Notes Entered by: PRECIOUS SILVEIRA 13 Jul 2014 1619 ------- ------- ------- ------- -- 3 day b/p check PRECIOUS SILVEIRA 07/13 Referred for Appointment [facility] B Flight Medicin e(Phy Exam)) [facility] [place]([facility] Flight Medicine( Phy Exam)) TELE CONSULT [id number] Notes Entered by: LG TERRY 17 Jul 2014 1101 ------- ------- ------- ------- -- ENT Notes AMPARO MORENO 07/17 [facility] [place] [facility]son(CAF B Flight Medicin e(Phy Exam)) [facility] [place] [facility] Flight Medicine( Phy Exam)) OUTPATIENT [id number] f/u jaw surgery AMPARO MORENO 08/02 Released with Work/Duty Limitations [facility](CAF B Flight Medicin e(Phy Exam)) [facility] [place]([facility] Flight Medicine( Phy Exam)) TELE CONSULT [id number] ZAN ARZATE 08/23 Other Not Elsewhere Classified [facility](CAF B Flight Medicin e(Phy Exam)) [facility] [place] [facility] Flight Medicine( Phy Exam)) OUTPATIENT [id number] F/U SURGERY AMPARO MORENO 09/11 Released with Work/Duty Limitations [facility](CAF B Flight Medicin e(Phy Exam)) [facility] [place] [facility](HCOS Team B-Non AD) TELE CONSULT [id number] Notes Entered by: YARELI DIEHL 21 Sep 2014 0709 ------- ------- ------- ------- -- 90 Day STI F/Y YARELI DIEHL 09/21 Released to Self [facility](HCO S Team B-Non AD) [facility] [place] [facility] Flight Medicine( Phy Exam)) TELE CONSULT [id number] Notes Entered by: Hayes MROENO 28 Sep 2014 1243 ------- ------- ------- ------- -- F/U labs AMPARO MORENO 09/28 [facility](CAF B Flight Medicin e(Phy Exam)) [facility] [place] [facility] Flight Medicine( Phy Exam)) OUTPATIENT [id number] Ac pacheco CHEO COONEY 06/24 Released w/o Limitations [facility](CAF B Flight Medicin e(Phy Exam)) [facility] TELE CONSULT [id number] Notes Entered by: ROBIN ARZATE 07 Aug 2015 0758 ------- ------- ------- ------- -- Annual AC update ZAN ARZATE 08/07 Other Not Elsewhere Classified [facility]son(CAF B BO 1) [facility] [place] OUTPATIENT [id number] KALLIE COONEYManuel Allison 08/15 Released with Work/Duty Limitations [facility](CAF B BO 1) [facility] [place]([facility] Flight Medicine( Phy Exam)) TELE CONSULT [id number] Notes Entered by: ISATU BROWN 14 Jan 2016 1554 ------- ------- ------- ------- -- Malaria prophyl axis ANSHU COONEYKAI Allison 01/13 [facility](CAF B Flight Medicin e(Phy Exam)) [facility] [place]([facility] Flight Medicine( Phy Exam)) OUTPATIENT [id number] Neck Pain KALLIE COONEYManuel Allison 02/09 Released with Work/Duty Limitations [facility](CAF B Flight Medicin e(Phy Exam)) [facility]) OUTPATIENT [id number] ALBA Rey 02/11 Released w/o Limitations [facility] Rma[facility] jackson(CAF B Physica l Therapy Clinic) [facility]) OUTPATIENT [id number] ALBA SAENZ 02/16 Released w/o Limitations [facility] B Physica l Therapy Clinic) [facility] [place]([facility]) OUTPATIENT [id number] ALBA SAENZ 02/23 Released w/o Limitations [facility](CA[facility] B Physica l Therapy Clinic) [facility] [place]([facility]) OUTPATIENT [id number] ALBA SAENZ 03/02 Released w/o Limitations [facility] B Physica l Therapy Clinic) [facility]( Phy Exam)) OUTPATIENT [id number] F/u Rt Shoulde r/14AS Loadmas ter ANSHU COONEYARDO A 03/02 Released w/o Limitations [facility](CA[facility] B Flight Medicin e(Phy Exam)) [facility]) OUTPATIENT [id number] ALBA SAENZ 03/23 Released w/o Limitations [facility] B Physica l Therapy Clinic) [facility]( Phy Exam)) OUTPATIENT [id number] F/U Neck Pain KALLIE COONEYO A 04/06 Released w/o Limitations [facility] [place](CAF B Flight Medicin e(Phy Exam)) [facility] [place] [facility] Flight Medicine( Phy Exam)) OUTPATIENT [id number] reoccur ing neck issues ANSHU COONEYARDO A 08/17 Released with Work/Duty Limitations [facility] Ramirez manuel(CAF B Flight Medicin e(Phy Exam)) [facility] n([facility] BOMC 1) OUTPATIENT [id number] flt phys AMPARO MORENO 08/26 Released with Work/Duty Limitations [facility] Ramirez manuel(CAF B BOMC 1) [facility] [place] [facility] Flight Medicine( Phy Exam)) OUTPATIENT [id number] unable to complet e PT test KALLIE COONEYO A 09/18 Released with Work/Duty Limitations [facility] Ramirez manuel(CAF B Flight Medicin e(Phy Exam)) [facility] Flight Medicine( Phy Exam)) TELE CONSULT [id number] Notes Entered by: ISATU BROWN 29 Sep 2016 0759 ------- ------- ------- ------- -- Urgent Referra ls CHEO COONEY 09/29 [facility](CAF B Flight Medicin e(Phy Exam)) [facility] n([facility] Flight Medicine( Phy Exam)) OUTPATIENT [id number] flt phys CHEO COONEY 01/29 Released w/o Limitations [facility](CAF B Flight Medicin e(Phy Exam)) [facility] n(CAFB BO 1) TELE CONSULT [id number] Notes Entered by: ROBIN ARZATE 19 Feb 2017 1122 ------- ------- ------- ------- -- C Code Removal ZAN ARZATE 02/19 Other Not Elsewhere Classified [facility](CAF B BO 1) [facility] Ramirez n([facility] Flight Medicine( Phy Exam)) TELE CONSULT [id number] Notes Entered by: ISATU BROWN 19 Mar 2017 1400 ------- ------- ------- ------- -- Malaria prophyl axis CHEO COONEY 03/19 [facility](CAF B Flight Medicin e(Phy Exam)) [facility] n([facility] Flight Medicine( Phy Exam)) TELE CONSULT [id number] Notes Entered by: JUWAN BOUDREAUX 07 Jul 2017 1216 ------- ------- ------- ------- -- Malaria Prophyl axis CHEO COONEY 07/07 [facility](CAF B Flight Medicin e(Phy Exam)) [facility] n([facility] Flight Medicine( Phy Exam)) OUTPATIENT [id number] Notes Entered by: ISATU BROWN 07 Sep 2017 0955 ------- ------- ------- ------- -- A IVET, CHEO A 09/07 Released w/o Limitations [facility]son(CAF B Flight Medicin e(Phy Exam)) [facility] [place] Flight Medicine( Phy Exam)) OUTPATIENT [id number] Waiver interim /renewa l parotid gland tumor/ 4 IVETCHEO SHEEHAN 10/20 Released w/o Limitations [facility](CAF B Flight Medicin e(Phy Exam)) [facility] [place]([facility] Flight Medicine( Phy Exam)) TELE CONSULT [id number] Notes Entered by: LUIS ENRIQUE RANDLE 27 Oct 2017 0707 ------- ------- ------- ------- -- [facility] Results -ENT [id number] PHILOMENA JENNINGS 10/[address] [facility](CAF B Flight Medicin e(Phy Exam)) [facility] Ramirezsilvia samuel(CAFB BO 1) OUTPATIENT [id number] S/Go red date 11/24/17 PHILOMENA JENNINGS 11/17 Released w/o Limitations [facility](CAF B BOMC 1) [facility] [place] [facility] Flight Medicine( Phy Exam)) TELE CONSULT [id number] Notes Entered by: JUWAN BOUDREAUX 22 Dec 2017 0718 ------- ------- ------- ------- -- [facility] axis CHEO COONEY 12/[address] [facility](CAF B Flight Medicin e(Phy Exam)) [facility] Flight Medicine( Phy Exam)) OUTPATIENT [id number] Notes Entered by: PRECIOUS SILVEIRA 23 Mar 2018 1454 ------- ------- ------- ------- -- CHEO Gan A 03/23 Released w/o Limitations [facility](CAF B Flight Medicin e(Phy Exam)) [facility] n(CAFB BO 1) OUTPATIENT [id number] SOMMER PARNELL 04/26 Released w/o Limitations [facility](CAF B BO 1) [facility] n([facility] Flight Medicine( Phy Exam)) OUTPATIENT [id number] Notes Entered by: TISHA SRINIVASAN 27 Apr 2018 0738 ------- ------- ------- ------- -- Sick call - cold symptom s/cough ing/sor e throat INGE AGGARWAL 04/27 Sick at Home/Quarter s [facility](CAF B Flight Medicin e(Phy Exam)) [facility](CAFB Allergy) TELE CONSULT [id number] Notes Entered by: YARELI DIEHL 04 May 2018 1002 ------- ------- ------- ------- -- ANAMIKA COE 05/04 [facility](CAF B Allergy ) [facility] n(CA[facility] Mental Health) OUTPATIENT [id number] SELIN CONNER 05/04 Released w/o Limitations [facility](CAF B Mental Health) [facility] OUTPATIENT [id number] Theater Provider 05/28 Released w/o Limitations [facility] OUTPATIENT [id number] Theater Provider 08/23 Released w/o Limitations Theater [facility] n([facility] Flight Medicine( Phy Exam)) OUTPATIENT [id number] 1 referra l for CHEO Fishman A 09/15 Released w/o Limitations [facility] Ramirez jackson(CAF B Flight Medicin e(Phy Exam)) [employer]([facility] C Flight [facility]) TELE CONSULT [id number] Notes Entered by: KAILA ZUÑIGA 02 Dec 2018 1039 ------- ------- ------- ------- -- [employer] my Follow Up Labs BARB CRABTREE 12/02 Other Not Elsewhere Classified [employer](D C Flight Medicin [facility]) [employer]([facility] C Flight Medicine [facility]) TELE CONSULT [id number] Notes Entered by: JUAN CESPEDES 06 Dec 2018 1557 ------- ------- ------- ------- -- Semen Analysi s Results KARTIK WILSON 12/06 [employer](D C Flight Medicin [facility]) [facility]) TELE CONSULT [id number] Notes Entered by: KAILA ZUÑIGA LUISELSI Art 20 Dec 2018 1608 ------- ------- ------- ------- -- Lab Result BARB CRABTREE 12/20 Other Not Elsewhere Classified [employer](D C [facility]) [employer]([facility]) TELE CONSULT [id number] Notes Entered by: MARYANNE WILSON 22 Dec 2018 0644 ------- ------- ------- ------- -- lab results KARTIK WILSON 12/22 [employer]([facility]) [employer]([facility]) OUTPATIENT [id number] Notes Entered by: JOSELINE OSHEA 28 Dec 2018 1126 ------- ------- ------- ------- -- VANESSAF KENDALL Soria 12/28 Released w/o Limitations [employer]([facility]) -375 [facility] [id number] Acute upper respira tory infecti on, unspeci fied LEANNA HARRIS ING 10/11 Discharge Disposition: Home or Self Care 5C-[address] [place] [address] 5C-375 [facility] [id number] EXAM, OCCUPAT IONAL, AVIATIO N, LONG,EX AM/ASSE SSMENT, OCCUPAT IONAL, 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 NICK C HEALTH ASSESSM ENT (PHA),T rigemin al neuralg ia,Alta gnant neoplas m of parotid gland JAG TELLEZ 11/06 Discharge Disposition: Home or Self Care 5C- [address] [place] [address] 0014C-[place] [id number] Encount er for other adminis trative examina titracey MURGUIA EGLINTON 11/29 Discharge Disposition: Home or Self Care 0014C-D [facility] 5C-375 [facility] Between Visit [id number] 01/10 Discharge Disposition: Home or Self Care - [address] [place] [address] - [facility] Dental [id number] AMILCAR DBRUSH 05/27 Discharge Disposition: Home or Self Care -[address] [place] [address] Procedures Combined list of: 1) Procedures from Department of Veterans Affairs facilities [facility], not all VA non-surgical procedures are included; 2) All procedures from the Department of Defense facilities. Procedure Procedure Type Code Date Perfomer Comments Sourc e OSTEOPATHIC MANIPULATIVE TREATMENT (OMT); 1-2 BODY REGIONS INVOLVED [facility] LARYNGOSCOPY, FLEXIBLE; DIAGNOSTIC [facility] SENSORIMOTOR EXAMINATION WITH MULTIPLE MEASUREMENTS OF OCULAR DEVIATION (EG, RESTRICTIVE OR PARETIC MUSCLE WITH DIPLOPIA) WITH INTERPRETATION AND REPORT (SEPARATE PROCEDURE) [facility] SCREENING TEST OF VISUAL ACUITY, QUANTITATIVE, BILATERAL [facility] THERAPEUTIC, PROPHYLACTIC, OR DIAGNOSTIC INJECTION (SPECIFY SUBSTANCE OR DRUG); SUBCUTANEOUS OR INTRAMUSCULAR [facility] PSYCHIATRIC EVALUATION OF HOSPITAL RECORDS, OTHER PSYCHIATRIC REPORTS, PSYCHOMETRIC AND/OR PROJECTIVE TESTS, AND OTHER ACCUMULATED DATA FOR MEDICALDIAGNOSTIC PURPOSES [facility] NEUROPSYCHOLOGICAL TESTING (EG, [place] CARD SORTING TEST), ADMINISTERED BY A COMPUTER, WITH QUALIFIED HEALTH GREIGE GOODS EXAMINER INTERPRETATION AND REPORT [facility] BRIEF EMOTIONAL/BEHAVIORAL ASSESSMENT (EG, DEPRESSION INVENTORY, ATTENTION-DEFICIT/HYP ERACTIVITY DISORDER [ADHD] SCALE), WITH SCORING AND DOCUMENTATION, PER STANDARDIZED INSTRUMENT [facility] SCREENING TEST OF VISUAL ACUITY, QUANTITATIVE, BILATERAL [facility] ADMINISTRATION OF PATIENT-FOCUSED HEALTH RISK ASSESSMENT INSTRUMENT (EG, HEALTH HAZARD APPRAISAL) WITH SCORING AND DOCUMENTATION, PER STANDARDIZED INSTRUMENT [facility] PSYCHOTHERAPY, 45 MINUTES WITH PATIENT [facility] SCREENING TEST OF VISUAL ACUITY, QUANTITATIVE, BILATERAL [facility] PHYSICAL THERAPY RE-EVALUATION [facility] THERAPEUTIC PROCEDURE, 1 OR MORE AREAS, EACH 15 MINUTES; THERAPEUTIC EXERCISES TO DEVELOP STRENGTH AND ENDURANCE, RANGE OF MOTION AND FLEXIBILITY [facility] PHYSICAL OR MANIPULATIVE THERAPY PERFORMED FOR MAINTENANCE RATHER THAN YAZIDISM [facility] PHYSICAL OR MANIPULATIVE THERAPY PERFORMED FOR MAINTENANCE RATHER THAN YAZIDISM [facility] PHYSICAL THERAPY EVALUATION [facility] PURE TONE AUDIOMETRY (THRESHOLD); AIR ONLY [facility] PURE TONE AUDIOMETRY (THRESHOLD); AIR ONLY [facility] PSYCHOLOGICAL OR NEUROPSYCHOLOGICAL TEST ADMINISTRATION, WITH SINGLE AUTOMATED, STANDARDIZED INSTRUMENT VIA ELECTRONIC PLATFORM, WITH AUTOMATED RESULT ONLY DoD TELE ASSESS & MGT SRV PROV QUAL NONPHYS HLTH CARE PRO TO EST PAT,PARENT,GUARD NOT ORIG REL ASSESS & MGT SRV PROV W/IN PREV 7 DAYS NOR LEAD ASSESS & MGT SRV/PX W/IN NXT 24 HR/SOON APT;5-10 MIN MED DIS DoD TELE ASSESS & MGT SRV PROV QUAL NONPHYS HLTH CARE PRO TO EST PAT,PARENT,GUARD NOT ORIG REL ASSESS & MGT SRV PROV W/IN PREV 7 DAYS NOR LEAD ASSESS & MGT SRV/PX W/IN NXT 24 HR/SOON APT;5-10 MIN MED DIS [facility] Non-Physician Phone Call To Patient/Provider Brief (5-10min) Non-Physician Phone Call To Patient/Provider Brief (5-10min) [id number] BARB SCRUGGS [facility] Non-Physician Phone Call To Patient/Provider Brief (5-10min) Non-Physician Phone Call To Patient/Provider Brief (5-10min) [id number] BARB SCRUGGS [facility] Psychiatric Diagnostic Evaluation Review of Records and Reports Psychiatric Diagnostic Evaluation Review of Records and Reports [id number] GAVIOTA LEON [facility] Psychometric Neuropsych Testing Battery Admin By Computer Psychometric Neuropsych Testing Battery Admin By Computer [id number] SELIN ROA [facility] Psychometric Emotional / Behavioral A e ment Psychometric Emotional / Behavioral Assessment 23186 SOMMER ZAMAN [facility] Preventive Medicine Administration Of Health Risk Questionnaire Patient-Focused Preventive Medicine Administration Of Health Risk Questionnaire Patient-Focused 59958 SOMMER ZAMAN [facility] Screening Test Of Visual Acuity, Quantitative, Bilateral Screening Test Of Visual Acuity, Quantitative, Bilateral 87505 PHILOMENA JENNINGS Threshold Audiogram (Pure Tone) Threshold Audiogram (Pure Tone) 84484 WARNERSPHILOMENA Extensive Color Vision Testing Extensive Color Vision Testing 72567 PHILOMENA JENNINGS Vital Signs Recorded Vital Signs Recorded DICKPHILOMENA Tonometry Tonometry 97114 [facility] Vital Signs Recorded Vital Signs Recorded DENTIANUJA, MAEVE JACOBO Fela Tonometry Tonometry 79065 DENTI, MAEVE JACOBO Fela Screening Test Of Visual Acuity, Quantitative, Bilateral Screening Test Of Visual Acuity, Quantitative, Bilateral 04698 DENTIANUJA, MAEVE JACOBO DoD Threshold Audiogram (Pure Tone) Threshold Audiogram (Pure Tone) 35719 018 DENTIANUJA, MAEVE JACOBO Fela Extensive Color Vision Testing Extensive Color Vision Testing 32322 018 DENTICI, MAEVE JACOBO Fela Extensive Color Vision Testing Extensive Color Vision Testing 86764 018 MARCO KESSLER Tonometry Tonometry 48387 MARCO KESSLER Threshold Audiogram (Pure Tone) Threshold Audiogram (Pure Tone) 01393 018 MARCO KESSLER Screening Test Of Visual Acuity, Quantitative, Bilateral Screening Test Of Visual Acuity, Quantitative, Bilateral 46459 018 MARCO KESSLER Preventive Medicine Administration Of Health Risk Questionnaire Patient-Focused Preventive Medicine Administration Of Health Risk Questionnaire Patient-Focused [id number] 018 CHEO COONEY Internet Med Svc Qual Nonphys Healthcare Prof Up To 7 Days Estab Patient Internet Med Svc Qual Nonphys Healthcare Prof Up To 7 Days Estab Patient 06182 018 CHEO COONEY Clinical Social Work Individual Outpatient Counseling 45 Minutes Clinical Social Work Individual Outpatient Counseling 45 Minutes 56455 017 SREEKANTH VILLEDA Screening Test Of Visual Acuity, Quantitative, Bilateral Screening Test Of Visual Acuity, Quantitative, Bilateral 19708 017 AMPARO MORENO Extensive Color Vision Testing Extensive Color Vision Testing 78744 017 AMPARO MORENO Threshold Audiogram (Pure Tone) Threshold Audiogram (Pure Tone) 38594 017 AMPARO MORENO Physical Therapy Service Re-Evaluation Physical Therapy Service Re-Evaluation 44105 016 ALBA SAENZ Physical Therapy: ___ Se ion Segments, 15 Minutes Each Physical Therapy: ___ Session Segments, 15 Minutes Each 63253 ALBA VILLAR 15 mins [facility] Physical Therapy Service Re-Evaluation Physical Therapy Service Re-Evaluation 28241 ALBA VILLAR Physical or manipulative therapy performed for maintenance rather than scientologist Physical or manipulative therapy performed for maintenance rather than scientologist [id number] 016 ALBA SAENZ 2 needles [facility] Mobilization Soft Ti ue Mobilization Soft Tissue 47105 ALBA VILLAR 15 mins [facility] Physical Therapy: ___ Se ion Segments, 15 Minutes Each Physical Therapy: ___ Session Segments, 15 Minutes Each 42264 016 ALBA SAENZ 23 mins [facility] Physical or manipulative therapy performed for maintenance rather than scientologist Physical or manipulative therapy performed for maintenance rather than scientologist [id number] 016 ALBA SAENZ 1 needle [facility] Physical Therapy: ___ Se ion Segments, 15 Minutes Each Physical Therapy: ___ Session Segments, 15 Minutes Each 43283 016 ALBA SAENZ 15 mins DoD Mobilization Soft Ti ue Mobilization Soft Tissue 47989 016 ALBA SAENZ 23 mins DoD Physical or manipulative therapy performed for maintenance rather than scientologist Physical or manipulative therapy performed for maintenance rather than scientologist S8990 ALBA SAENZ 1 needle [facility] Physical Therapy: ___ Se ion Segments, 15 Minutes Each Physical Therapy: ___ Session Segments, 15 Minutes Each 48394 ALBA SAENZ 8 mins DoD Mobilization Soft Ti ue Mobilization Soft Tissue 71296 ALBA SAENZ 15 mins [facility] Physical Therapy Service Evaluation Physical Therapy Service Evaluation 43278 ALBA SAENZ [facility] Threshold Audiogram (Pure Tone) Threshold Audiogram (Pure Tone) 21793 IVETCHEO SHEEHAN A [facility] Visual Function Screening Visual Function Screening 42194 016 IVETCHEO NICHOLSON A [facility] Visual Function Screening Visual Function Screening 88546 014 AMPARO MORENO [facility] Threshold Audiogram (Pure Tone) Threshold Audiogram (Pure Tone) 44168 014 AMPARO MORENO [facility] Osteopathic Manip Treatment (OMT) 1-2 Body Regions Involved Osteopathic Manip Treatment (OMT) 1-2 Body Regions Involved 29539 MICHAEL FERNANDEZ [facility] Laryngoscopy Diagnostic Flexible Laryngoscopy Diagnostic Flexible 79743 ED BABCOCK [facility] ECG 12-Lead With Interpretation And Report ECG 12-Lead With Interpretation And Report 94497 JADON BLAKELY [facility] Ophthalmological Sensorimotor Exam Ophthalmological Sensorimotor Exam 84418 REFUGIO GLOVER [facility] ECG 12-Lead ECG 12-Lead [id number] RAJINDER MILLIGAN [facility] ECG 12-Lead With Interpretation And Report ECG 12-Lead With Interpretation And Report 17691 RAJINDER MILLIGAN [facility] Screening Test Of Visual Acuity, Quantitative, Bilateral Screening Test Of Visual Acuity, Quantitative, Bilateral 65108 10/09/2 RAJINDER SIMS [facility] Extensive Color Vision Testing Extensive Color Vision Testing 69199 RAJINDER MILLIGAN Keegan [facility] Visual Function Screening Visual Function Screening 41276 RAJINDER MILLIGAN [facility] Psychometric Neuropsych Testing Battery Admin By Computer Psychometric Neuropsych Testing Battery Admin By Computer 56170 LAZARO GUIDO [facility] Excision Left Parotid gland tumor [address] [place] [address] Septoplasty (Bilateral) 021 auto-populat ed from documented surgical case [facility]14[facility] Craniotomy (No Laterality) 023 auto-populat ed from documented surgical case [facility]14[facility] Social History Combined list of available smoking, tobacco, and other social history from Department of Defense and Veterans Affairs facilities. Social History Type Response Date Comment [facility] e Sex Representation 03/09/2019 Unknow n Organization This section is an empty social history section. [facility] Tobacco Never-cigarette user Cigarette use:. Never-other tobacco user (not cigarettes) Other Tobacco use:. [address] [place] [address] [facility] Sexual Orientation [address] [place] [address] [facility] Gender identity [address] [place] [address] [facility] Assessment and Plan Combined list of future care activities from Department of [facility] and Veterans Affairs facilities (e.g., assessment and plan notes, appointments, orders, and referrals). Additional future care activities may be listed in the Plan of Care section. Result Assessment and Plan Date Source Assessment and Plan Extracted from:Title : [facility] [place] Med Clr- PME Author: ELENA JESUS MD Date: 11/29/24 1. Certification status -Available medical records reviewed. DQ conditions identified, requirng ongoing care with neurology, currently at [place]. DNIF -Member is NOT medically cleared for PME -[id number] SIGNED: N/A AMD- cont DNIF WWQ - No, MR Refer to ROBEL or IRILO - No DR/MR/FR resulting from this encounter- No new Capt Elena Mc MD, [facility] Flight Surgeon [address] [place] [address], [place] Extracted from:Title: [facility] - Fly PHA Author: JAG ALONZO MD Date: 11/06/24 1. 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 Currently: DNIF Here today for annual fly physical. No occupational safety concerns. No medical concerns during flying operations. [facility] requirements updated. Due for Dental, flu. PE unremarkable. Audiogram: not yet completed - pt will make appointment Vision: WNL EK Age appropriate counseling: Colonoscopy: no fam hx, due age 46 Annual labs: due today - will order lipids, A1c, CMP (to eval LFTs given elevated BMI) Lung cancer screening: n/a, nonsmoker -Aeromedical status: inactive flying -If member has waiver, what waiver actions needed: n/a - indefinite waiver for parotid gland carcinoma -IMR: MR for recurrence of trigeminal neuralgia, workup -PE [id number] issued via [facility] -AMD: DNIF for trigeminal neuralgia workup Ordered: Comprehensive Metabolic Panel Hemoglobin A1c Lipid Panel 2. 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 No SI/HI. 3. 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 C-code for this condition retired in 2016 Indefinite waiver for this condition 4. Trigeminal neuralgia Trigeminal neuralgia on the right s/p microvascular decompression in September 2022 that resulted in complete relief of right-sided symptoms Last neurology f/u December 2023 C1 code for this condition retired in January 2024 Pt with recurrence of symptoms in Apr 2024, instructed to see Neurology again, recently PCS'd to [place] and needs a referral Currently, symptoms are right sided, worse with increased activity/HR DNIF at this time, may need waiver if condition does not completely subside (MSD 01 Nov 2024, L25) Fitness and mobility profile entered x90 days Ordered: Referral Request 2.0 - DoD //SIGNED// Capt Jag Carter MD Staff Physician, Flight/Family Medicine [address] [place], [place] Extracted from:Title: [facility]- URI Author: LEANNA COPPOLA, IDMT Date: 10/11/24 1. URI - Upper respiratory infection Dx is likely lingering Upper Resp infection based on continued sxs since 05 October. NEG Resp Panel on 05 October for Flu/COVID. Continued body aches and sore throat with slightly worsened rhinorrhea, PND, and cough. Oropharynx showed slight erythema, likely secondary to PND/cough- no deep erythema or exudates that would suggest Strep. Dry cough per patient with no production, SoB at rest, or trouble breathing- Lungs CTAB in clinic. Exam otherwise WNL. Slightly Tachy today in clinic- likely secondary to viral infection. Nausea likely secondary to PND- will consider Antiemetics in the future if worsened. VS otherwise WNL. Continue with OTC Mucinex D, will add Sinus Rinse kit for congestion. Can also add OTC cepacol- recommended warm tea with honey as well. Discussed use of tylenol for acute pain. Increased rest and hydration- placed on 48 hr QTRS. No Red Flags. Abnormal VS Addressed. Treated IAW IDMT green protocols without deviation. Er/return precautions given. PVUA, no further questions. AMD: Cont DNIF- Will likely need waiver for prior condition- to discuss with PCM on Oct SSgt Lucila, [facility] Element Chief, [facility] Independent Duty Production [employer] [facility] [place], [place] Ordered: sodium chloride nasal(Arapaho Sinus Rinse Kit nasal powder for reconstitution), See Instructions, Dissolve the contents of one packet in 8 oz of purified/filtered water and instill into sinuses as directed, # 50 EA, 0 total refill(s), Maintenance, Pharmacy: [facility] [Last filled 10/11/24] Extracted from:Title: CSSP Author: DARRIAN PRINCE RN Date: 10/06/24 1. 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 Hx of Trigeminal Neuralgia- surgical intervention 2022 and carcinoma of the carotid artery- surgical intervention, unsure of the date. Stated he did have an MEB but no waiver. SM did have COVID in the past. NKDA. Spouse at home with same symptoms. Presented to sick call with c/o sore throat, tonsil intact, unproductive cough, body aches and pains, nausea, ACEVEDO 2-3/10, frontal lobe, described as dull, winded and slight dizziness w/ambulation, increased fatigue. Denied CP, SOB, ear fullness or pain, loss of taste or smell, chills, cold intolerance or sweats, sinus congestion , chest congestion, vomiting or diarrhea or other complaints at this time. Home Care- none. 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 Ears were clear and membrane was intact, tonsils were pink, non swollen, no exudate as seen on visual exam. Able to valsalava w/o difficulty. Discussed s/s w/provider who agreed to care plan. Nasal swab/Resp panel, (RESP 2.1) completed and sent to lab for testing. Informed the patient he will receive a call for any positive results; however, should monitor KALA/ASHLEY for the results. Triage and home care discussed per [facility] protocols, Acute nasopharyngitis [common cold]. This included hot steamy showers, use of VapoSteam tablets in the shower, humidified warm air, increased fluids, saltwater gargles, OTC pain relief, Mucinex or Robitussin for the cough, methanol rubs and moist heat to the chest, hard candies or cough drops, cold fluids/ice chips/popsicles, hand washing, covering mouth and nose when coughing, wearing an appropriate mask when in close quarters of others, rest, sleep w/HOB elevated at 30degree or sleep on stomach, if possible. Placed on 24hr, SM is off the next two days. Advised on RTFS apt once s/s have improved. Given call back instructions if the condition worsens/symptoms develop/no improvement w/in next 5-7 days, and when to report to the ED. Ensured had call back number for C and this RN. is aware of the NAL/ER if the need arises, will call back if s/s worsen. Patient verbalized understanding and agreed to care plan/treatment. Denied further questions or concerns at this time. Care Pathways Current Visit [facility] Adult Cold(Started Date: October 06, 2024) [facility] Adult Cold v3 - INCLUSION criterion: Patient IS between 18 and 65 years old. - INCLUSION criterion: Patient DOES report symptoms of a common cold (runny/stuffy nose, congestion, post-nasal drip, sneezing, cough, sore/scratchy throat, fever, ear fullness, and/or muscle aches). - EXCLUSION criteria: Diastolic BP less than 60 or greater than 90 mmHg,Nausea, vomiting, or diarrhea,Dizziness or fainting, and History of diabetes, cancer, chronic kidney disease, HIV, or taking immunosuppressants - DIFFERENTIAL criteria (current presence and the rapid onset of the following symptoms over the past 48 hours): Chills,Fatigue or general discomfort,Muscle aches or pains,Headache, and Non-productive cough - Provider notified of positive exclusion criteria and/or two or more differential criteria. Provider stated: Continue with clinical standard staff protocol - A/P: Patient met clinical standard staff protocol criteria for adult cold. Supportive and symptomatic care discussed: Drink plenty of fluids to ensure adequate hydration,Gargle with salt water to help relieve a sore throat,Wash hands regularly to avoid the spread of infection,Cover your cough with your arm or a tissue,OTC medications as desired, could include the following: guaifenesin, pseudoephedrine, Cepacol lozenges, ibuprofen, acetaminophen, saline nasal spray, and/or Afrin nasal spray, and Follow up if symptoms worsen or are not improving after 2-3 days of treatment - Disposition: Counseled patient to follow plan of care Extracted from:Title: [facility] virt trigeminla neuralgia Author: JULIANNE JONES DO Date: 05/01/24 1. Administrative statuses Pt states already talked with COl Mcgregor, and now is having tirgeminal neralgia reocurrence. pt to see neurology to eval. no acute concerns. AMD- DNIF Capt Jeremiah Jones DO Flight Surgeon, [address] [place] [employer] Extracted from:Title: [facility] - profile update Author: JULIANNE JONES DO Date: 04/25/24 1. COVID-19 asymptomatic, but pt deconditioned, will modify profile to allow for sufficeint time to recover and pass PT test AMD- NO CHANGE TO FLYING STATUS BASED ON THIS ENCOUNTER Capt Jeremiah Jones DO Flight Surgeon, [address] [employer] Extracted from:Title: URI_IDMT Author: ERNESTO OLVERA Date: 02/15/24 Common cold Based upon history, symptoms, and physical exam; pt will be treated for Viral URI. Pt placed on DNIF x 7days and placed on 72hrs quarters. Pt prescribed Mucinex-D and Motrin. Pt advised to f/u with clinic within days to RTFS. Report to the ER in the event of chest pain, shortness of breath, fever over 100.4, or 10/10 pain. DDX: Allergic Rhinitis: Turbinates erythemic Bronchitis/Pneumonia: Lungs CTA Strep: Negative Centor Criteria FLU/COVID/RSV: Awaiting test results Patient is DNIF X 7 days NO FR MR from this encounter. Quarters :N WWQ from this encounter - Y Meets retention standards from this encounter - Y ERNESTO OLVERA, [facility], [place], IDND [employer] [facility], [employer], [place] Ordered: ibuprofen(ibuprofen 800 mg oral tablet), 1 tab(s), Oral, every 8 hr, X 10 days, # 30 tab(s), 0 total refill(s), Acute, 02/25/2024, 1 tab(s) Oral every 8 hr,x10 days, Pharmacy: [facility] [Not filled] pseudoephedrine-guaifenesin(Mucine x D Max Strength 120 mg-1200 mg oral tablet, extended release), 1 tab(s), Oral, every 12 hr, X 14 days, # 28 tab(s), 0 total refill(s), Acute, 1 tab(s) Oral every 12 hr,x14 days, Pharmacy: [facility] [Not filled] SC2/FLU A/FLU B/RSV PCR Strep Group A PCR Extracted from:Title: Neurology - hx of trigeminal neuralgia SUSAN Author: REFUGIO PRESCOTT MD Date: 01/11/24 1. Trigeminal neuralgia 38 year old man with history of trigeminal neuralgia on the right s/p microvascular decompression in September 2022 that has resulted in complete relief of right-sided symptoms. He has no residual symptoms of trigeminal neuralgia and requires no additional therapies for this condition at this time. From a pure neurology/medical standpoint, the patient does not need scheduled follow up and can be seen on an as needed basis. The patient and I discussed that he may be required to return from an [employer] standpoint though. All questions answered to the best of my abilities. Activity restrictions and duration WWQ - Yes Refer to DAWG or IRILO - No DR/MR/FR resulting from this encounter? No Member meets retention standards? From a neurologic perspective, yes. The patient no longer meets MSD criteria as outlined in MSD, [id number], L25 since his condition has completely subsided. I spent >30 minutes on this patient's care on the date of service outside of any procedure time. This includes but is not limited to reviewing prior tests, obtaining/reviewing history, performing a medically appropriate examination, counseling, ordering medications/tests/procedures, referring and communicating with other professionals, documenting clinical information in the health record, and independently interpreting results. Refugio Prescott MD, MS Abdi, [facility], Adult Neurology and Neuromuscular Medicine [place], [place] Extracted from:Title: Flt Med PHA Author: ROBERTO CHARLES MD Date: 05/26/23 1. 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 Visual screening reviewed (Meets requirements), audiogram reviewed (H1), vitals signs reviewed (WNL). He has had a successful surgery for his trigeminal neuralgia and does not have significant sequelae and should not need waiver as per MSD L25 as he has no functional deficits and no aeromedical concerns related to prior history of. - No CV restrictions identified. - No other patient complaints, questions or concerns. - Aeromedical Disposition: Will unsuspend he needs to complete PHA in [facility] to complete new 2992 2. Snoring can send for sleep study only DNIF if positive Active Duty Disposition [facility] Wide Qualified - Yes Member meets retention standards - Yes DR/MR/FR resulting from this encounter (is profile needed, any duty limitation?) - No Refer to [facility]RO - No NO DNIF Roberto BUCKLEY), [place], [place], , [place] Extracted from:Title: Neurology t rigeminal neuralgia Author: REFUGIO PRESCOTT MD Date: 02/04/23 1. Trigeminal neuralgia 37 year old man with trigeminal neuralgia on the right now s/p microvascular decompression in September 2022 that has resulted in complete relief of right-sided symptoms. Discussed today some left-sided symptoms that are similar to in the past (less severe than the right), and possible etiologies including but not limited to idiopathic trigeminal neuralgia (given no clear structural cause on MRI X2, last in Aug 2022) vs. dental/TMJ-related. We discussed options moving forward including patient seeing dental, starting on gabapentin empirically, repeat imaging. We agreed at this time for the patient to see dental / orofacial pain, without restarting medication therapy. Separately, I reviewed the Referral management system and informed him that his Neurosurgery referrals that were placed were all cancelled because he is already established. There is no clear indication that he needs to return to see them for the left-sided symptoms at this time. The patient may return to this clinic on an as needed basis. All questions were answered to the best of my abilities. For references in case of an ER visit, for rescue treatment in the setting of an acute exacerbation of trigeminal neuralgia, IV fosphenytoin is the treatment of choice combined with rehydration when presenting to the ER. A reasonable dose is 20mg PE (phenytoin equivalents)/kg IV with a max dose of 1500mg (based on today's weight, patient would receive max dose) Activity restrictions and duration WWQ - Yes from a neurology standpoint Refer to ROBEL or LATONIA - No DR/MR/FR resulting from this encounter? No Member meets retention standards? Patient currently falls under MSD, [id number], L25 I spent >30 minutes on this patient's care on the date of service. This includes but is not limited to reviewing prior tests, obtaining/reviewing history, performing a medically appropriate examination, counseling, ordering medications/tests/procedures, referring and communicating with other professionals, documenting clinical information in the health record, and independently interpreting results. Refugio Prescott MD, MS Abdi, [facility], Adult Neurology and Neuromuscular Medicine [place], [place] Extracted from:Title: Office Clinic Note Author: WILL TREVIZO MD Date: 11/04/22 Much improved after microvascular decompression for trigeminal neuralgia with complete relief of right-sided facial pain. Recommend increase activity slowly as tolerated. Taper the gabapentin slowly, he may maintain the medication at a small dose to address the left-sided pain. He has a as needed appointment in the clinic. Extracted from:Title: Discharge Note Author: RAJINDER HODGES PA Date: 10/21/22 Trigeminal neuralgia Patient to discharge in stable condition. See pre-printed post-operative instructions. Discharge medications: [place] and Colace. Follow up appointment:Please call to confirm follow up appointment is scheduled for 10-14 days after surgery at Neurosurgery Clinic [phone]. Ordered: Admit to Inpatient Orders: acetaminophen(acetaminophen), 650 mg, Oral, Tablet, every 6 hr, PRN pain (mild), First Dose: 10/21/2022 12:47:00 PDT, 10/21/2022 12:47:00 PDT docusate(Colace), 100 mg, Oral, Capsule, BID, First Dose: 10/21/2022 21:00:00 PDT, 10/21/2022 12:47:00 PDT docusate(Colace 100 mg oral capsule), 1 cap(s), Oral, BID, PRN constipation, # 60 cap(s), 0 total refill(s), Maintenance, 1 cap(s) Oral BID,PRN:as needed for constipation, Pharmacy: [facility] [Not filled] hydrALAZINE(hydrALAZINE), 5 mg, IV Push (Intravenous), Injection, every 1 hr, PRN hypertension (see comment), First Dose: 10/21/2022 12:47:00 PDT, 10/21/2022 12:47:00 PDT labetalol(labetalol), 5 mg, IV Push (Intravenous), Injection, every 1 hr, PRN hypertension (see comment), First Dose: 10/21/2022 12:47:00 PDT, 10/21/2022 12:47:00 PDT polyethylene glycol 3350(MiraLax), 17 g, Oral, Powder-Oral, BID, PRN constipation, First Dose: 10/21/2022 12:47:00 PDT, 10/21/2022 12:47:00 PDT morphine(morphine), 2 mg, IV Push (Intravenous), Injection, every 2 hr, PRN breakthrough pain, First Dose: 10/21/2022 12:47:00 PDT HYDROcodone-acetaminophen(Arvada 10 mg-325 mg oral tablet), 1 tab(s), Oral, Tablet, every 4 hr, PRN pain (severe), First Dose: 10/21/2022 12:47:00 PDT, 10/21/2022 12:47:00 PDT HYDROcodone-acetaminophen(Arvada 10 mg-325 mg oral tablet), 1 tab(s), Oral, every 4 hr, PRN pain (severe), # 40 tab(s), 0 total refill(s), Acute, 10/29/2022, 1 tab(s) Oral every 4 hr,PRN:pain (severe), Pharmacy: [facility] [Not filled] HYDROcodone-acetaminophen(Arvada 5 mg-325 mg oral tablet), 1 tab(s), Oral, Tablet, every 4 hr, PRN pain (moderate), First Dose: 10/21/2022 12:47:00 PDT, 10/21/2022 12:47:00 PDT sodium chloride 0.9% 1,000 mL(normal saline drip 1,000 mL), IV Drip (Intravenous), Order Rate: 70 mL/hr, Order Weight: 120.2 kg, Start Date: 10/21/2022 12:47:00 PDT senna(senna), 8.6 mg, Oral, Tablet, BID, First Dose: 10/21/2022 21:00:00 PDT, 10/21/2022 12:47:00 PDT ondansetron(Zofran), 4 mg, IV Push (Intravenous), Injection, every 6 hr, PRN nausea, First Dose: 10/21/2022 12:47:00 PDT, 10/21/2022 12:47:00 PDT Consult to Discharge Planning Clear Liquid Diet ABORh Retype Basic Metabolic Panel CBC w/ Diff PT and INR PTT Type and Screen Bedside Incentive Spirometry Bedside Incentive Spirometry Clinical Condition Communication Order Discontinue IV Fluids Head of Bed Intake and Output Intermittent pneumatic compression devices Intermittent pneumatic compression devices Intermittent pneumatic compression devices Neurological Checks Notify Treating Provider Neuro Specialty Notify Treating Provider Temperature Patient Education Straight Catheter Up ad Jillian Up with Assistance Urinary Catheter Urinary Catheter Discontinue Vital Signs Physical Therapy (PT) Inpatient Evaluation and Treatment CT Brain/Head w/o Contrast Oximetry - Continuous Oxygen Therapy Addendum by RAJINDER HODGES PA on October 23, 2022 08:05:32 PDT patient post op stable. dc home today. Extracted from:Title: Office Clinic Note Author: MAYRA ARCINIEGA IDMT Date: 10/13/22 1. 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 We discussed and implemented the treatment plan according to standard protocol. I have reviewed the note and concur with the findings as documented. AMD- NO DNIF; WWQ, No AMRO/IRILO/MEB or FR// based on this encounter Capt Elena Mc MD, [facility] Flight Surgeon [employer] [facility], [place] Extracted from:Title: Neurology - trigeminal neuralgia Author: REFUGIO PRESCOTT MD Date: 08/19/22 1. Trigeminal neuralgia 36 year old man with symptoms since late 2020 originally in the right V1/V2>V3 distributions but now with bilateral symptoms most consistent with diagnosis of trigeminal neuralgia. MRI X2 have demonstrated vascular contact with the right trigeminal nerve near the root entry zone, but not the left. Gabapentin 600mg TID had been helpful, but he recently had a severe flare, requiring treatment in the ER, responding to fosphenytoin infusion, as directed in my previous clinical note. The patient and I discussed multiple options moving forward: 1) increase dose of gabapentin, 2) transition to carbamazepine or oxcarbazepine, or 3) neurosurgical consultation. Through joint decision making, we agreed to the following plan: - increase gabapentin dose to up to 900mg TID (new script for 300mg capsules written today) - neurosurgery consultation - new order for MRI brain to compare to prior studies. All questions were answered to the best of my abilities. The patient will follow up with me as needed to assist with future steps. As stated previously, for rescue treatment in the setting of an acute exacerbation, IV fosphenytoin is the treatment of choice combined with rehydration when presenting to the ER. A reasonable dose is 20mg PE (phenytoin equivalents)/kg IV with a max dose of 1500mg (based on today's weight, patient would receive max dose) Ordered: MRI Brain w/ + w/o Contrast Referral Request 2.0 Orders: gabapentin(gabapentin 300 mg oral capsule), See Instructions, take up to three capsules by mouth three times per day, as directed by your physician, # 810 cap(s), 2 total refill(s), Maintenance, take up to three capsules by mouth three times per day, as directed by your physician, Pharmacy: [facility] Activity restrictions and duration WWQ - Yes Refer to DAWG or IRILO - Not at this time DR/MR/FR resulting from this encounter? Not at this time Member meets retention standards? Patient currently falls under MSD, [id number], L25 >50% of the time with this patient were spent counseling or coordinating care including discussion of diagnosis, prognosis, and various treatments detailed in the assessment and plan above. Refugio Prescott MD, MS Major, [facility] Adult Neurology and Neuromuscular Medicine [facility], [place], [place] Addendum by PHIL LE MD on August 19, 2022 13:53:20 PST Greatly appreciate Neuro assistance with this pt. AMD- CONTINUE DNIF Capt Phil Le MD Flight Surgeon, [address], [employer] Extracted from:Title: Neurology FTR Author: REFUGIO PRESCOTT MD Date: 03/13/22 Atypical facial pain 35 year old man with symptoms since late 2020 in the right V1/V2>V3 distributions with MRI demonstrating vascular contact with the right trigeminal nerve near the root entry zone. Clinically, the patient does not meet full criteria for trigeminal neuralgia, given his lack of precipitation by innocuous stimuli; however, given the imaging findings and distribution of symptoms, this is likely the cause. He has done well on gabapentin, currently at 600mg TID, which he increased recently. Given his increase in symptoms and involvement of the contralateral side, discussed that he could increase to 900mg TID then 1200mg TID if desired. In the event that gabapentin is not beneficial, f or long-term treatment, carbamazepine (Tegretol) and oxcarbazepine (Trileptal) are considered first line, with carbamazepine having the best evidence as a assisted treatment modality, but is less well tolerated than oxcarbazepine. We previously discussed the following most common adverse effects of these medications: drowsiness, headache, fatigue, nausea, hyponatremia. I previously ordered baseline labs in preparation for this, but they were not done so I am ordering them again today (CBC with differential, iron panel, CMP, [id number]). Given his new symptoms on the left side, will order repeat MRI for further evaluation, in preparation also for possible visit back with neurosurgery. For rescue treatment in the setting of an acute exacerbation, IV fosphenytoin is the treatment of choice combined with rehydration when presenting to the ER. A reasonable dose is 20mg PE (phenytoin equivalents)/kg IV with a max dose of 1500mg (based on today's weight, patient would receive max dose) All questions answered to the best of my abilities. Ordered: MRI Brain w/ + w/o Contrast Orders: CBC w/ Diff Comprehensive Metabolic Panel Iron Studies Miscellaneous Sendout Activity restrictions and duration WWQ - Yes Refer to DAWG or IRILO - No DR/MR/FR resulting from this encounter? No Member meets retention standards? From a neurologic perspective, yes >50% of the time with this patient were spent counseling or coordinating care including discussion of diagnosis, prognosis, and various treatments detailed in the assessment and plan above. Refugio Prescott MD, MS Major, [facility], Adult Neurology and Neuromuscular Medicine [place], [place] Addendum by ELENA JESUS MD on March 16, 2022 17:42:43 PDT AMD- Cont DNIF Capt Elena Mc MD Flight Surgeon, [address] [employer], [place] Extracted from:Title: [facility]: F/u atypical facial pain Author: ELENA JESUS MD Date: 02/17/22 1. Atypical facial pain Bl facial sharp pain x 7 months despite 1500mg gabapentin total daily dose without improvement. Exam overall unremarkable today. Request reeval with neuro now that pain is BL. Original thought of vessel abutting trigeminal nerve on right side as possible source of pain, however NSYG preferred medical management if possible, now pain also on left side with unclear source. Consider ongoing atypical facial pain, trigeminal neuralgia, atypical ACEVEDO, less likely shingles given distribution, TMJD not demonstrated on imaging. 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 AMD- DNIF; WWQ, No AMRO/IRILO/MEB or FR// based on this encounter Capt Elena Mc MD Flight Surgeon, [address] [employer] Extracted from:Title: Neurology SPEC - atypical facial pain (likely trigeminal neuralgia) Author: REFUGIO PRESCOTT MD Date: 09/11/21 1. Atypical facial pain 35 year old man with approximately 3 months of symptoms in the right V1/V2>V3 distributions with MRI demonstrating vascular contact with the right trigeminal nerve near the root entry zone. Clinically, the patient does not meet full criteria for trigeminal neuralgia, given his lack of precipitation by innocuous stimuli; however, given the imaging findings and distribution of symptoms, this is likely the cause. He has done well on gabapentin, currently at 300mg TID. We discussed that while this is not considered first line therapy, if he is doing well, there is no reason to change. I counseled him that he can increase this to up to 1200mg TID, as long as he is tolerating this fine. In the event that gabapentin is not beneficial, f or long-term treatment, carbamazepine (Tegretol) and oxcarbazepine (Trileptal) are considered first line, with carbamazepine having the best evidence as a assisted treatment modality, but is less well tolerated than oxcarbazepine. We discussed the following most common adverse effects of these medications: drowsiness, headache, fatigue, nausea, hyponatremia. In preparation for this, I am ordering baseline labs needed (CBC with differential, iron panel, CMP, [id number]), since I do not see any in [place]. For rescue treatment in the setting of an acute exacerbation, IV fosphenytoin is the treatment of choice combined with rehydration when presenting to the ER. A reasonable dose is 20mg PE (phenytoin equivalents)/kg IV with a max dose of 1500mg (based on today's weight, patient would receive max dose) There is no need for follow up in this clinic given he is actively being managed by neurosurgery. All questions answered to the best of my abilities. Orders: CBC w/ Diff Comprehensive Metabolic Panel Iron Studies Miscellaneous Sendout Activity restrictions and duration WWQ - Yes Refer to DAWG or IRILO - No DR/MR/FR resulting from this encounter? No Member meets retention standards? From a neurologic perspective, yes >50% of the time with this patient were spent counseling or coordinating care including discussion of diagnosis, prognosis, and various treatments detailed in the assessment and plan above. Refugio Prescott MD, MS Abdi, [facility], Adult Neurology and Neuromuscular Medicine [place], [place] No qualifying data available. Extracted from:Title: [facility]: Jaw pain/ER follow-up Author: ELENA JESUS MD Date: 08/05/21 1. Jaw pain 35M s/p left parotidectomy for malignant neoplasm with chronic right jaw pain, dull and achy with intermittent sharp pain with moderate improvement s/p ketamine in ED last night and 1day of gabapentin 300mg TID and hydrocodone 5mg PRN. Member already followed by [facility] with pending MRI, pt to f/u with dental tomorrow to review results and plan moving forward. Differential to include trigeminal neuralgia vs TMJD, although sharma-xray of jaw was unremarkable at the TMJ, otherwise no evidence of new mass, obvious deformity on CT or other intrasinus etiology at this time. Will continue to follow patient and specialty recommendations. -Defer medical/pharmacologic management to specialist (pain specialist with dental; although flight med may facilitate med refills based on specialty recommendations). Current ER discharge meds as follows: --Gabapentin 300mg TID (per [facility] recs) --Arvada 5mg Q4-6hr PRN for pain --Zofran PRN for nausea -continue cold water rinses to help with tooth/jaw pain PRN -ER precautions reviewed -Pt to f/u with dental for MRI read review and additional management recs. 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 AMD- DNIF for medication use WWQ, No AMRO/IRILO/MEB or FR/MR/ based on this encounter; however if requires surgery, specialty follow-up frequently or risk for incapacitation, may require additional restrictions Capt Elena Mc MD Flight Surgeon, [address] [employer] Extracted from:Title: new chiro Office Clinic Note, neck, Rt arm Author: IVAN JACOB DC Date: 06/24/21 1. Degeneration of thoracic intervertebral disc Activator protocol LPD S/L, LPI. HVLA PA mid T, CT inf fix BL. Ordered: Office Visit Level 3 New [id number] 2. Cervical segmental dysfunction Ordered: Office Visit Level 3 [facility] [id number] 3. Sacral somatic dysfunction Ordered: Office Visit Level 3 [facility] [id number] Addendum by RAYA BRADSHAW MD on June 25, 2021 09:54:23 PST AMD- NO DNIF FOR THIS ENCOUNTER RAYA BRADSHAW MD, SENIOR FLIGHT SURGEON, [facility] Extracted from:Title: ENT Clinic Note Author: MD ROBERT, KARTIK WILLIS MD Date: 01/20/21 1. Postoperative visit Ordered: Postop [place] [id number] Extracted from:Title: ENT Clinic Note- Preop septoturbinoplasty Author: MD ROBERT, KARTIK WILLIS MD Date: 01/07/21 1. Nasal obstruction 34 yo M with left sided nasal congestion with exam notable for leftward deviated septum abutting inferior turbinate. His symptoms are not resolved with flonase. He would be a good candidate for septoturbinoplasty. I have extensively discussed the risks, benefits, and alternatives to a septoturbinoplasty. He is interested in having surgery. We have discussed the operative details, risk of bleeding, infection, pain, scar, numbness, risks of anesthesia, recurrence of nasal obstruction, need for additional surgery, septal perforation, septal hematoma. Patient is aware that splints will be placed in the nose postoperatively for healing purposes. The patient understands. All questions were addressed and answered. Will plan for 01/15/2021. Consent signed in clinic. Will place preop covid test Kartik Dowell M.D. Staff Hand Shoes Sewer [facility] Dept of Otolaryngology-Head and Neck Surgery History 34 yo M referred to ENT for evaluation of nasal breathing. He was set for septoturbinoplasty in May 2020, however had to cancel. No changes since last being seen. He notes that 17 years ago he had facial trauma but never got treated. He notes that since then, he has always had left sided nasal obstruction. He states he was previously seen by an ENT and prescribed flonase, however notes that it has not benefited him much. Notes left sided nasal congestion, usually at night. Also notes dryness to his left nostril. No epistaxis. Patient currently without fevers, chills, sweats, wt loss. No bleeding d/o or anesthesia complications. 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 Patient was followed for 3 years postoperatively without evidence of disease. He is doing fine from that standpoint. Physical Exam Current VS reviewed. No abnormalities noted. GEN: WD/WN in NAD Alert and Oriented, normal mood and affect NL voice and communication HEAD/FACE: Normocephalic/Normal facial exam No tenderness to sinus palpation NL salivary glands NL facial strength EOMI, NL gaze alignment EARS: NL pinnas bilaterally NL clinical speech threshold RIGHT EAR: NL EAC, TM without evidence for perforation, retraction, or effusion LEFT EAR: NL EAC, TM without evidence for perforation, retraction, or effusion NOSE: NL external nose leftward deviated septum abutting inferior turbinate. No caudal involvement Inferior nasal turbinates 2/4 bilaterally OC/OP: NL lips, teeth, gingiva NL oral mucosa, hard and soft palate, tongue, tonsils, and post pharynx by visual inspection NECK: NL Thyroid Exam No lymphadenopathy RESP: Chest rise symmetric with normal expansion and respiratory effort PVS: Upper extremities without clubbing, cyanosis, edema, or varicosities NEURO: CN II-XII grossly intact. Procedure: Flexible Fiberoptic Laryngoscopy: Topical anesthetic and decongestant were applied to both nasal passages. The inferior and middle turbinates were normal. No pus, polyps, or masses were observed. Nasopharynx was normal. Unremarkable adenoid tissue. The base of tongue, vallecula, epiglottis, and pyriform sinuses were normal without lesions or masses. The right TVC was normal in appearance and mobility. The left TVC was normal in appearance and mobility Ordered: SARS-CoV-2 PCR Septoplasty 2. Deviated nasal septum Ordered: SARS-CoV-2 PCR Septoplasty 3. Hypertrophy of nasal turbinates Ordered: SARS-CoV-2 PCR Septoplasty Addendum by ROBINSON ALONSO on January 08, 2021 16:23:32 PDT Aeromedical Disposition: Continue DNIF/DNIC. Extracted from:Title: ENT Clinic Note Author: KARTIK DOWELL MD Date: 05/14/20 1. Nasal congestion 34 yo M with left sided nighttime nasal congestion with exam notable for leftward deviated septum abutting inferior turbinate. His symptoms are not resolved with flonase. He would be a good candidate for septoturbinoplasty. I have extensively discussed the risks, benefits, and alternatives to a septoturbinoplasty. He is interested in having surgery. We have discussed the operative details, risk of bleeding, infection, pain, scar, numbness, risks of anesthesia, recurrence of nasal obstruction, need for additional surgery, septal perforation, septal hematoma. Patient is aware that splints will be placed in the nose postoperatively for healing purposes. The patient understands. All questions were addressed and answered. Will plan for 14Jun2020. Consent signed in clinic. Kartik Dowell M.D. 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 ) Treated With [26] OPERATIONS ON SALIVARY GLANDS AND DUCTS Any recurrence of disease requires DNIF, full medical evaluation and treatment, and submission of a new waiver request. Expires: Indef All Medical Readiness requirements up to date: YES(Dental, labs, Immunizations) DISTANT VA (uncorrected) R-20/20 L-20/20 NEAR VA (uncorrected) R-20/ 20 L-20/20 HETEROPHORIA: ES: 0 (WNL: equal/less than 15 prism diopters for nonscanner, WNL: equal/less than prism diopters for scanner) EX: 3 (WNL: equal/less than 8 prism diopters for nonscanner, WNL: equal/less than 6 prism diopters for scanner) RH: 0 (WNL: equal/less than 2 prism diopters for nonscanner, WNL: equal/less than 1.5 prism diopters for scanner) LH: 0 (WNL: equal/less than 2 prism diopters for nonscanner, WNL: equal/less than 1.5 prism diopters for scanner) DEPTH PERCEPTION: PASS - D Extracted from:Title: Ambulatory Patient Education Author: DELANO BUITRAGO MD Date: 04/05/19 Patient Education Materials Follows: Future Scheduled TestsLaboratoryHemoglobin A1c 11/06/24Comprehensive Metabolic Panel 11/06/24Lipid Panel 11/06/24 05/30/[address] [place] [address] Assessment and Plan Extracted from:Title : [facility] [place]: DQ Med Clr- PME Author: ELENA JESUS MD Date: 11/29/24 1. Certification status -Available medical records reviewed. DQ conditions identified, requirng ongoing care with neurology, currently at [place]. DNIF -Member is NOT medically cleared for PME -[id number] SIGNED: N/A AMD- cont DNIF WWQ - No, MR Refer to DAWG or IRILO - No DR/MR/FR resulting from this encounter- No new Capt Elena Mc MD, [facility] Flight Surgeon [employer] [place], [place] Extracted from:Title: [facility] - Fly PHA Author: JAG ALONZO MD Date: 11/06/24 1. 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 Currently: DNIF Here today for annual fly physical. No occupational safety concerns. No medical concerns during flying operations. [facility] requirements updated. Due for Dental, flu. PE unremarkable. Audiogram: not yet completed - pt will make appointment Vision: WNL EK Age appropriate counseling: Colonoscopy: no fam hx, due age 46 Annual labs: due today - will order lipids, A1c, CMP (to eval LFTs given elevated BMI) Lung cancer screening: n/a, nonsmoker -Aeromedical status: inactive flying -If member has waiver, what waiver actions needed: n/a - indefinite waiver for parotid gland carcinoma -IMR: MR for recurrence of trigeminal neuralgia, workup -PE [id number] issued via [facility] -AMD: DNIF for trigeminal neuralgia workup Ordered: Comprehensive Metabolic Panel Hemoglobin A1c Lipid Panel 2. 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 No SI/HI. 3. 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 C-code for this condition retired in 2016 Indefinite waiver for this condition 4. Trigeminal neuralgia Trigeminal neuralgia on the right s/p microvascular decompression in September 2022 that resulted in complete relief of right-sided symptoms Last neurology f/u December 2023 C1 code for this condition retired in January 2024 Pt with recurrence of symptoms in Apr 2024, instructed to see Neurology again, recently PCS'd to [place] and needs a referral Currently, symptoms are right sided, worse with increased activity/HR DNIF at this time, may need waiver if condition does not completely subside (MSD 01 Nov 2024, L25) Fitness and mobility profile entered x90 days Ordered: Referral Request 2.0 - DoD //SIGNED// Capt Jag Carter MD Staff Physician, Flight/Family Medicine [address], [place], [place] Extracted from:Title: [facility]- URI Author: LEANNA COPPOLA, KARENMT Date: 10/11/24 1. URI - Upper respiratory infection Dx is likely lingering Upper Resp infection based on continued sxs since 05 October. NEG Resp Panel on 05 October for Flu/COVID. Continued body aches and sore throat with slightly worsened rhinorrhea, PND, and cough. Oropharynx showed slight erythema, likely secondary to PND/cough- no deep erythema or exudates that would suggest Strep. Dry cough per patient with no production, SoB at rest, or trouble breathing- Lungs CTAB in clinic. Exam otherwise WNL. Slightly Tachy today in clinic- likely secondary to viral infection. Nausea likely secondary to PND- will consider Antiemetics in the future if worsened. VS otherwise WNL. Continue with OTC Mucinex D, will add Sinus Rinse kit for congestion. Can also add OTC cepacol- recommended warm tea with honey as well. Discussed use of tylenol for acute pain. Increased rest and hydration- placed on 48 hr QTRS. No Red Flags. Abnormal VS Addressed. Treated IAW IDMT green protocols without deviation. Er/return precautions given. PVUA, no further questions. AMD: Cont DNIF- Will likely need waiver for prior condition- to discuss with PCM on Oct SSgt Lucila, [facility] Element Chief, [facility] Independent Duty Production [employer] [facility] [place] [facility], [place] Ordered: sodium chloride nasal([place]aho Sinus Rinse Kit nasal powder for reconstitution), See Instructions, Dissolve the contents of one packet in 8 oz of purified/filtered water and instill into sinuses as directed, # 50 EA, 0 total refill(s), Maintenance, Pharmacy: [facility] [Last filled 10/11/24] Extracted from:Title: CSSP Author: DARRIAN PRINCE RN Date: 10/06/24 1. 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 Hx of Trigeminal Neuralgia- surgical intervention 2022 and carcinoma of the carotid artery- surgical intervention, unsure of the date. Stated he did have an MEB but no waiver. SM did have COVID in the past. NKDA. Spouse at home with same symptoms. Presented to sick call with c/o sore throat, tonsil intact, unproductive cough, body aches and pains, nausea, ACEVEDO 2-3/10, frontal lobe, described as dull, winded and slight dizziness w/ambulation, increased fatigue. Denied CP, SOB, ear fullness or pain, loss of taste or smell, chills, cold intolerance or sweats, sinus congestion , chest congestion, vomiting or diarrhea or other complaints at this time. Home Care- none. 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 Ears were clear and membrane was intact, tonsils were pink, non swollen, no exudate as seen on visual exam. Able to valsalava w/o difficulty. Discussed s/s w/provider who agreed to care plan. Nasal swab/Resp panel, (RESP 2.1) completed and sent to lab for testing. Informed the patient he will receive a call for any positive results; however, should monitor KALA/ASHLEY for the results. Triage and home care discussed per [facility] protocols, Acute nasopharyngitis [common cold]. This included hot steamy showers, use of VapoSteam tablets in the shower, humidified warm air, increased fluids, saltwater gargles, OTC pain relief, Mucinex or Robitussin for the cough, methanol rubs and moist heat to the chest, hard candies or cough drops, cold fluids/ice chips/popsicles, hand washing, covering mouth and nose when coughing, wearing an appropriate mask when in close quarters of others, rest, sleep w/HOB elevated at 30degree or sleep on stomach, if possible. Placed on 24hr, SM is off the next two days. Advised on RTFS apt once s/s have improved. Given call back instructions if the condition worsens/symptoms develop/no improvement w/in next 5-7 days, and when to report to the ED. Ensured had call back number for [facility] and this RN. is aware of the NAL/ER if the need arises, will call back if s/s worsen. Patient verbalized understanding and agreed to care plan/treatment. Denied further questions or concerns at this time. Care Pathways Current Visit [facility] Adult Cold(Started Date: October 06, 2024) [facility] Adult Cold v3 - INCLUSION criterion: Patient IS between 18 and 65 years old. - INCLUSION criterion: Patient DOES report symptoms of a common cold (runny/stuffy nose, congestion, post-nasal drip, sneezing, cough, sore/scratchy throat, fever, ear fullness, and/or muscle aches). - EXCLUSION criteria: Diastolic BP less than 60 or greater than 90 mmHg,Nausea, vomiting, or diarrhea,Dizziness or fainting, and History of diabetes, cancer, chronic kidney disease, HIV, or taking immunosuppressants - DIFFERENTIAL criteria (current presence and the rapid onset of the following symptoms over the past 48 hours): Chills,Fatigue or general discomfort,Muscle aches or pains,Headache, and Non-productive cough - Provider notified of positive exclusion criteria and/or two or more differential criteria. Provider stated: Continue with clinical standard staff protocol - A/P: Patient met clinical standard staff protocol criteria for adult cold. Supportive and symptomatic care discussed: Drink plenty of fluids to ensure adequate hydration,Gargle with salt water to help relieve a sore throat,Wash hands regularly to avoid the spread of infection,Cover your cough with your arm or a tissue,OTC medications as desired, could include the following: guaifenesin, pseudoephedrine, Cepacol lozenges, ibuprofen, acetaminophen, saline nasal spray, and/or Afrin nasal spray, and Follow up if symptoms worsen or are not improving after 2-3 days of treatment - Disposition: Counseled patient to follow plan of care Extracted from:Title: [facility] virt trigeminla neuralgia Author: JULIANNE JONES, Date: 05/01/24 1. Administrative statuses Pt states already talked with COl Mcgregor, and now is having tirgeminal neralgia reocurrence. pt to see neurology to eval. no acute concerns. AMD- DNIF Capt Jeremiah Jones DO Flight Surgeon, [address] [employer] Extracted from:Title: [facility] - profile update Author: JULIANNE JONES DO Date: 04/25/24 1. COVID-19 asymptomatic, but pt deconditioned, will modify profile to allow for sufficeint time to recover and pass PT test AMD- NO CHANGE TO FLYING STATUS BASED ON THIS ENCOUNTER Capt Jeremiah Jones DO Flight Surgeon, [address], [address] [employer] Extracted from:Title: URI_IDMT Author: ERNESTO OLVERA Date: 02/15/24 Common cold Based upon history, symptoms, and physical exam; pt will be treated for Viral URI. Pt placed on DNIF x 7days and placed on 72hrs quarters. Pt prescribed Mucinex-D and Motrin. Pt advised to f/u with clinic within days to RTFS. Report to the ER in the event of chest pain, shortness of breath, fever over 100.4, or 10/10 pain. DDX: Allergic Rhinitis: Turbinates erythemic Bronchitis/Pneumonia: Lungs CTA Strep: Negative Centor Criteria FLU/COVID/RSV: Awaiting test results Patient is DNIF X 7 days NO FR MR from this encounter. Quarters :N WWQ from this encounter - Y Meets retention standards from this encounter - Y ERNESTO OLVERA, [facility], [place], IDMT [employer] Josep Luevano [facility], [facility] [employer], [place] Ordered: ibuprofen(ibuprofen 800 mg oral tablet), 1 tab(s), Oral, every 8 hr, X 10 days, # 30 tab(s), 0 total refill(s), Acute, 02/25/2024, 1 tab(s) Oral every 8 hr,x10 days, Pharmacy: [facility] [Not filled] pseudoephedrine-guaifenesin(Mucine x D Max Strength 120 mg-1200 mg oral tablet, extended release), 1 tab(s), Oral, every 12 hr, X 14 days, # 28 tab(s), 0 total refill(s), Acute, 1 tab(s) Oral every 12 hr,x14 days, Pharmacy: [facility] [Not filled] SC2/FLU A/FLU B/RSV PCR Strep Group A PCR Extracted from:Title: Neurology - hx of trigeminal neuralgia SUSAN Author: REFUGIO PRESCOTT MD Date: 01/11/24 1. Trigeminal neuralgia 38 year old man with history of trigeminal neuralgia on the right s/p microvascular decompression in September 2022 that has resulted in complete relief of right-sided symptoms. He has no residual symptoms of trigeminal neuralgia and requires no additional therapies for this condition at this time. From a pure neurology/medical standpoint, the patient does not need scheduled follow up and can be seen on an as needed basis. The patient and I discussed that he may be required to return from an [employer] standpoint though. All questions answered to the best of my abilities. Activity restrictions and duration WWQ - Yes Refer to DAWG or IRILO - No DR/MR/FR resulting from this encounter? No Member meets retention standards? From a neurologic perspective, yes. The patient no longer meets MSD criteria as outlined in MSD, [id number], L25 since his condition has completely subsided. I spent >30 minutes on this patient's care on the date of service outside of any procedure time. This includes but is not limited to reviewing prior tests, obtaining/reviewing history, performing a medically appropriate examination, counseling, ordering medications/tests/procedures, referring and communicating with other professionals, documenting clinical information in the health record, and independently interpreting results. Refugio Prescott MD, MS [facility], [facility], Adult Neurology and Neuromuscular Medicine [place], [place] Extracted from:Title: Flt Med PHA Author: ROBERTO CHARLES MD Date: 05/26/23 1. 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 Visual screening reviewed (Meets requirements), audiogram reviewed (H1), vitals signs reviewed (WNL). He has had a successful surgery for his trigeminal neuralgia and does not have significant sequelae and should not need waiver as per MSD L25 as he has no functional deficits and no aeromedical concerns related to prior history of. - No CV restrictions identified. - No other patient complaints, questions or concerns. - Aeromedical Disposition: Will unsuspend he needs to complete PHA in [facility] to complete new 2992 2. 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 Trigeminal neuralgia 37 year old man with trigeminal neuralgia on the right now s/p microvascular decompression in September 2022 that has resulted in complete relief of right-sided symptoms. Discussed today some left-sided symptoms that are similar to in the past (less severe than the right), and possible etiologies including but not limited to idiopathic trigeminal neuralgia (given no clear structural cause on MRI X2, last in Aug 2022) vs. dental/TMJ-related. We discussed options moving forward including patient seeing dental, starting on gabapentin empirically, repeat imaging. We agreed at this time for the patient to see dental / orofacial pain, without restarting medication therapy. Separately, I reviewed the Referral management system and informed him that his Neurosurgery referrals that were placed were all cancelled because he is already established. There is no clear indication that he needs to return to see them for the left-sided symptoms at this time. The patient may return to this clinic on an as needed basis. All questions were answered to the best of my abilities. For references in case of an ER visit, for rescue treatment in the setting of an acute exacerbation of trigeminal neuralgia, IV fosphenytoin is the treatment of choice combined with rehydration when presenting to the ER. A reasonable dose is 20mg PE (phenytoin equivalents)/kg IV with a max dose of 1500mg (based on today's weight, patient would receive max dose) Activity restrictions and duration WWQ - Yes from a neurology standpoint Refer to ROBEL or LATONIA - No DR/MR/FR resulting from this encounter? No Member meets retention standards? Patient currently falls under MSD, [id number], L25 I spent >30 minutes on this patient's care on the date of service. This includes but is not limited to reviewing prior tests, obtaining/reviewing history, performing a medically appropriate examination, counseling, ordering medications/tests/procedures, referring and communicating with other professionals, documenting clinical information in the health record, and independently interpreting results. Refugio Prescott MD, MS Abdi, [facility], Adult Neurology and Neuromuscular Medicine [place], [place] Extracted from:Title: Office Clinic Note Author: WILL TREVIZO MD Date: 11/04/22 Much improved after microvascular decompression for trigeminal neuralgia with complete relief of right-sided facial pain. Recommend increase activity slowly as tolerated. Taper the gabapentin slowly, he may maintain the medication at a small dose to address the left-sided pain. He has a as needed appointment in the clinic. Extracted from:Title: Discharge Note Author: RAJINDER HODGES PA Date: 10/21/22 Trigeminal neuralgia Patient to discharge in stable condition. See pre-printed post-operative instructions. Discharge medications: Arvada and Colace. Follow up appointment:Please call to confirm follow up appointment is scheduled for 10-14 days after surgery at Neurosurgery [facility] [phone]. Ordered: Admit to Inpatient Orders: acetaminophen(acetaminophen), 650 mg, Oral, Tablet, every 6 hr, PRN pain (mild), First Dose: 10/21/2022 12:47:00 PDT, 10/21/2022 12:47:00 PDT docusate(Colace), 100 mg, Oral, Capsule, BID, First Dose: 10/21/2022 21:00:00 PDT, 10/21/2022 12:47:00 PDT docusate(Colace 100 mg oral capsule), 1 cap(s), Oral, BID, PRN constipation, # 60 cap(s), 0 total refill(s), Maintenance, 1 cap(s) Oral BID,PRN:as needed for constipation, Pharmacy: [facility] [Not filled] hydrALAZINE(hydrALAZINE), 5 mg, IV Push (Intravenous), Injection, every 1 hr, PRN hypertension (see comment), First Dose: 10/21/2022 12:47:00 PDT, 10/21/2022 12:47:00 PDT labetalol(labetalol), 5 mg, IV Push (Intravenous), Injection, every 1 hr, PRN hypertension (see comment), First Dose: 10/21/2022 12:47:00 PDT, 10/21/2022 12:47:00 PDT polyethylene glycol 3350(MiraLax), 17 g, Oral, Powder-Oral, BID, PRN constipation, First Dose: 10/21/2022 12:47:00 PDT, 10/21/2022 12:47:00 PDT morphine(morphine), 2 mg, IV Push (Intravenous), Injection, every 2 hr, PRN breakthrough pain, First Dose: 10/21/2022 12:47:00 PDT HYDROcodone-acetaminophen(Arvada 10 mg-325 mg oral tablet), 1 tab(s), Oral, Tablet, every 4 hr, PRN pain (severe), First Dose: 10/21/2022 12:47:00 PDT, 10/21/2022 12:47:00 PDT HYDROcodone-acetaminophen(Arvada 10 mg-325 mg oral tablet), 1 tab(s), Oral, every 4 hr, PRN pain (severe), # 40 tab(s), 0 total refill(s), Acute, 10/29/2022, 1 tab(s) Oral every 4 hr,PRN:pain (severe), Pharmacy: [facility] [Not filled] HYDROcodone-acetaminophen(Arvada 5 mg-325 mg oral tablet), 1 tab(s), Oral, Tablet, every 4 hr, PRN pain (moderate), First Dose: 10/21/2022 12:47:00 PDT, 10/21/2022 12:47:00 PDT sodium chloride 0.9% 1,000 mL(normal saline drip 1,000 mL), IV Drip (Intravenous), Order Rate: 70 mL/hr, Order Weight: 120.2 kg, Start Date: 10/21/2022 12:47:00 PDT senna(senna), 8.6 mg, Oral, Tablet, BID, First Dose: 10/21/2022 21:00:00 PDT, 10/21/2022 12:47:00 PDT ondansetron(Zofran), 4 mg, IV Push (Intravenous), Injection, every 6 hr, PRN nausea, First Dose: 10/21/2022 12:47:00 PDT, 10/21/2022 12:47:00 PDT Consult to Discharge Planning Clear Liquid Diet ABORh Retype Basic Metabolic Panel CBC w/ Diff PT and INR PTT Type and Screen Bedside Incentive Spirometry Bedside Incentive Spirometry Clinical Condition Communication Order Discontinue IV Fluids Head of Bed Intake and Output Intermittent pneumatic compression devices Intermittent pneumatic compression devices Intermittent pneumatic compression devices Neurological Checks Notify Treating Provider Neuro Specialty Notify Treating Provider Temperature Patient Education Straight Catheter Up ad Jillian Up with Assistance Urinary Catheter Urinary Catheter Discontinue Vital Signs Physical Therapy (PT) Inpatient Evaluation and Treatment CT Brain/Head w/o Contrast Oximetry - Continuous Oxygen Therapy Addendum by RAJINDER HODGES PA on October 23, 2022 08:05:32 PDT patient post op stable. dc home today. Extracted from:Title: Office Clinic Note Author: MAYRA ARCINIEGA IDMT Date: 10/13/22 1. 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 We discussed and implemented the treatment plan according to standard protocol. I have reviewed the note and concur with the findings as documented. AMD- NO DNIF; WWQ, No AMRO/IRILO/MEB or FR/MR/ based on this encounter Capt Elena Mc MD, [facility] Flight Surgeon [employer] [facility], [place] Extracted from:Title: Neurology - trigeminal neuralgia Author: REFUGIO PRESCOTT MD Date: 08/19/22 1. Trigeminal neuralgia 36 year old man with symptoms since late 2020 originally in the right V1/V2>V3 distributions but now with bilateral symptoms most consistent with diagnosis of trigeminal neuralgia. MRI X2 have demonstrated vascular contact with the right trigeminal nerve near the root entry zone, but not the left. Gabapentin 600mg TID had been helpful, but he recently had a severe flare, requiring treatment in the ER, responding to fosphenytoin infusion, as directed in my previous clinical note. The patient and I discussed multiple options moving forward: 1) increase dose of gabapentin, 2) transition to carbamazepine or oxcarbazepine, or 3) neurosurgical consultation. Through joint decision making, we agreed to the following plan: - increase gabapentin dose to up to 900mg TID (new script for 300mg capsules written today) - neurosurgery consultation - new order for MRI brain to compare to prior studies. All questions were answered to the best of my abilities. The patient will follow up with me as needed to assist with future steps. As stated previously, for rescue treatment in the setting of an acute exacerbation, IV fosphenytoin is the treatment of choice combined with rehydration when presenting to the ER. A reasonable dose is 20mg PE (phenytoin equivalents)/kg IV with a max dose of 1500mg (based on today's weight, patient would receive max dose) Ordered: MRI Brain w/ + w/o Contrast Referral Request 2.0 Orders: gabapentin(gabapentin 300 mg oral capsule), See Instructions, take up to three capsules by mouth three times per day, as directed by your physician, # 810 cap(s), 2 total refill(s), Maintenance, take up to three capsules by mouth three times per day, as directed by your physician, Pharmacy: [facility]... Activity restrictions and duration WWQ - Yes Refer to DAWG or IRILO - Not at this time DR/MR/FR resulting from this encounter? Not at this time Member meets retention standards? Patient currently falls under MSD, [id number], L25 >50% of the time with this patient were spent counseling or coordinating care including discussion of diagnosis, prognosis, and various treatments detailed in the assessment and plan above. Refugio Prescott MD, MS Major, [facility], Adult Neurology and Neuromuscular Medicine [facility], [place], [place] Addendum by PHIL LE MD on August 19, 2022 13:53:20 PST Greatly appreciate Neuro assistance with this pt. AMD- CONTINUE DNIF Capt Phil Le MD Flight Surgeon, [address] [employer] Extracted from:Title: Neurology FTR Author: REFUGIO PRESCOTT MD Date: 03/13/22 Atypical facial pain 35 year old man with symptoms since late 2020 in the right V1/V2>V3 distributions with MRI demonstrating vascular contact with the right trigeminal nerve near the root entry zone. Clinically, the patient does not meet full criteria for trigeminal neuralgia, given his lack of precipitation by innocuous stimuli; however, given the imaging findings and distribution of symptoms, this is likely the cause. He has done well on gabapentin, currently at 600mg TID, which he increased recently. Given his increase in symptoms and involvement of the contralateral side, discussed that he could increase to 900mg TID then 1200mg TID if desired. In the event that gabapentin is not beneficial, f or long-term treatment, carbamazepine (Tegretol) and oxcarbazepine (Trileptal) are considered first line, with carbamazepine having the best evidence as a termite control representative treatment modality, but is less well tolerated than oxcarbazepine. We previously discussed the following most common adverse effects of these medications: drowsiness, headache, fatigue, nausea, hyponatremia. I previously ordered baseline labs in preparation for this, but they were not done so I am ordering them again today (CBC with differential, iron panel, CMP, [id number]). Given his new symptoms on the left side, will order repeat MRI for further evaluation, in preparation also for possible visit back with neurosurgery. For rescue treatment in the setting of an acute exacerbation, IV fosphenytoin is the treatment of choice combined with rehydration when presenting to the ER. A reasonable dose is 20mg PE (phenytoin equivalents)/kg IV with a max dose of 1500mg (based on today's weight, patient would receive max dose) All questions answered to the best of my abilities. Ordered: MRI Brain w/ + w/o Contrast Orders: CBC w/ Diff Comprehensive Metabolic Panel Iron Studies Miscellaneous Sendout Activity restrictions and duration WWQ - Yes Refer to DAWG or IRILO - No DR/MR/FR resulting from this encounter? No Member meets retention standards? From a neurologic perspective, yes >50% of the time with this patient were spent counseling or coordinating care including discussion of diagnosis, prognosis, and various treatments detailed in the assessment and plan above. Refugio Prescott MD, MS Abdi, [facility], Adult Neurology and Neuromuscular Medicine [place], [place] Addendum by ELENA JESUS MD on March 16, 2022 17:42:43 PDT AMD- Cont DNIF Capt Elena Mc MD Flight Surgeon, [address] [employer] Extracted from:Title: [facility]: F/u atypical facial pain Author: ELENA JESUS MD Date: 02/17/22 1. Atypical facial pain Bl facial sharp pain x 7 months despite 1500mg gabapentin total daily dose without improvement. Exam overall unremarkable today. Request reeval with neuro now that pain is BL. Original thought of vessel abutting trigeminal nerve on right side as possible source of pain, however NSYG preferred medical management if possible, now pain also on left side with unclear source. Consider ongoing atypical facial pain, trigeminal neuralgia, atypical ACEVEDO, less likely shingles given distribution, TMJD not demonstrated on imaging. 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 AMD- DNIF; WWQ, No AMRO/IRILO/MEB or FR// based on this encounter Capt Elena Mc MD Flight Surgeon, [address] [employer] Extracted from:Title: Neurology SPEC - atypical facial pain (likely trigeminal neuralgia) Author: REFUGIO PRESCOTT MD Date: 09/11/21 1. Atypical facial pain 35 year old man with approximately 3 months of symptoms in the right V1/V2>V3 distributions with MRI demonstrating vascular contact with the right trigeminal nerve near the root entry zone. Clinically, the patient does not meet full criteria for trigeminal neuralgia, given his lack of precipitation by innocuous stimuli; however, given the imaging findings and distribution of symptoms, this is likely the cause. He has done well on gabapentin, currently at 300mg TID. We discussed that while this is not considered first line therapy, if he is doing well, there is no reason to change. I counseled him that he can increase this to up to 1200mg TID, as long as he is tolerating this fine. In the event that gabapentin is not beneficial, f or long-term treatment, carbamazepine (Tegretol) and oxcarbazepine (Trileptal) are considered first line, with carbamazepine having the best evidence as a termite control representative treatment modality, but is less well tolerated than oxcarbazepine. We discussed the following most common adverse effects of these medications: drowsiness, headache, fatigue, nausea, hyponatremia. In preparation for this, I am ordering baseline labs needed (CBC with differential, iron panel, CMP, [id number]), since I do not see any in [place]. For rescue treatment in the setting of an acute exacerbation, IV fosphenytoin is the treatment of choice combined with rehydration when presenting to the ER. A reasonable dose is 20mg PE (phenytoin equivalents)/kg IV with a max dose of 1500mg (based on today's weight, patient would receive max dose) There is no need for follow up in this clinic given he is actively being managed by neurosurgery. All questions answered to the best of my abilities. Orders: CBC w/ Diff Comprehensive Metabolic Panel Iron Studies Miscellaneous Sendout Activity restrictions and duration WWQ - Yes Refer to DAWG or IRILO - No DR/MR/FR resulting from this encounter? No Member meets retention standards? From a neurologic perspective, yes >50% of the time with this patient were spent counseling or coordinating care including discussion of diagnosis, prognosis, and various treatments detailed in the assessment and plan above. Refugio Prescott MD, MS Abdi, [facility], Adult Neurology and Neuromuscular Medicine [place], [place] No qualifying data available. Extracted from:Title: [facility]: Jaw pain/ER follow-up Author: ELENA JESUS MD Date: 08/05/21 1. Jaw pain 35M s/p left parotidectomy for malignant neoplasm with chronic right jaw pain, dull and achy with intermittent sharp pain with moderate improvement s/p ketamine in ED last night and 1day of gabapentin 300mg TID and hydrocodone 5mg PRN. Member already followed by [facility] with pending MRI, pt to f/u with dental tomorrow to review results and plan moving forward. Differential to include trigeminal neuralgia vs TMJD, although sharma-xray of jaw was unremarkable at the TMJ, otherwise no evidence of new mass, obvious deformity on CT or other intrasinus etiology at this time. Will continue to follow patient and specialty recommendations. -Defer medical/pharmacologic management to specialist (pain specialist with dental; although flight med may facilitate med refills based on specialty recommendations). Current ER discharge meds as follows: --Gabapentin 300mg TID (per [facility] recs) --[place] 5mg Q4-6hr PRN for pain --Zofran PRN for nausea -continue cold water rinses to help with tooth/jaw pain PRN -ER precautions reviewed -Pt to f/u with dental for MRI read review and additional management recs. 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 AMD- DNIF for medication use WWQ, No AMRO/IRILO/MEB or FR/MR/ based on this encounter; however if requires surgery, specialty follow-up frequently or risk for incapacitation, may require additional restrictions Capt Elena Mc MD Flight Surgeon, [address] [employer] Extracted from:Title: new chiro Office Clinic Note, neck, Rt arm Author: IVAN JACOB DC Date: 06/24/21 1. Degeneration of thoracic intervertebral disc Activator protocol LPD S/L, LPI. HVLA PA mid T, CT inf fix BL. Ordered: Office Visit Level 3 [facility] [address] 2. Cervical segmental dysfunction Ordered: Office Visit Level 3 [facility] [address] 3. Sacral somatic dysfunction Ordered: Office Visit Level 3 [facility] [id number] Addendum by RAYA BRADSHAW MD on June 25, 2021 09:54:23 PST AMD- NO DNIF FOR THIS ENCOUNTER RAYA BRADSHAW MD, SENIOR FLIGHT SURGEON, [facility] Extracted from:Title: ENT Clinic Note Author: MD ROBERT, KARTIK WILLIS MD Date: 01/20/21 1. Postoperative visit Ordered: Postop [place] [id number] Extracted from:Title: ENT Clinic Note- Preop septoturbinoplasty Author: MD ROBERT, KARTIK WILLIS MD Date: 01/07/21 1. Nasal obstruction 34 yo M with left sided nasal congestion with exam notable for leftward deviated septum abutting inferior turbinate. His symptoms are not resolved with flonase. He would be a good candidate for septoturbinoplasty. I have extensively discussed the risks, benefits, and alternatives to a septoturbinoplasty. He is interested in having surgery. We have discussed the operative details, risk of bleeding, infection, pain, scar, numbness, risks of anesthesia, recurrence of nasal obstruction, need for additional surgery, septal perforation, septal hematoma. Patient is aware that splints will be placed in the nose postoperatively for healing purposes. The patient understands. All questions were addressed and answered. Will plan for 01/15/2021. Consent signed in clinic. Will place preop covid test Kartik Dowell M.D. Staff Hand Shoes Sewer [facility] Dept of Otolaryngology-Head and Neck Surgery History 34 yo M referred to ENT for evaluation of nasal breathing. He was set for septoturbinoplasty in May 2020, however had to cancel. No changes since last being seen. He notes that 17 years ago he had facial trauma but never got treated. He notes that since then, he has always had left sided nasal obstruction. He states he was previously seen by an ENT and prescribed flonase, however notes that it has not benefited him much. Notes left sided nasal congestion, usually at night. Also notes dryness to his left nostril. No epistaxis. Patient currently without fevers, chills, sweats, wt loss. No bleeding d/o or anesthesia complications. 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 Patient was followed for 3 years postoperatively without evidence of disease. He is doing fine from that standpoint. Physical Exam Current VS reviewed. No abnormalities noted. GEN: WD/WN in NAD Alert and Oriented, normal mood and affect NL voice and communication HEAD/FACE: Normocephalic/Normal facial exam No tenderness to sinus palpation NL salivary glands NL facial strength EOMI, NL gaze alignment EARS: NL pinnas bilaterally NL clinical speech threshold RIGHT EAR: NL EAC, TM without evidence for perforation, retraction, or effusion LEFT EAR: NL EAC, TM without evidence for perforation, retraction, or effusion NOSE: NL external nose leftward deviated septum abutting inferior turbinate. No caudal involvement Inferior nasal turbinates 2/4 bilaterally OC/OP: NL lips, teeth, gingiva NL oral mucosa, hard and soft palate, tongue, tonsils, and post pharynx by visual inspection NECK: NL Thyroid Exam No lymphadenopathy RESP: Chest rise symmetric with normal expansion and respiratory effort PVS: Upper extremities without clubbing, cyanosis, edema, or varicosities NEURO: CN II-XII grossly intact. Procedure: Flexible Fiberoptic Laryngoscopy: Topical anesthetic and decongestant were applied to both nasal passages. The inferior and middle turbinates were normal. No pus, polyps, or masses were observed. Nasopharynx was normal. Unremarkable adenoid tissue. The base of tongue, vallecula, epiglottis, and pyriform sinuses were normal without lesions or masses. The right TVC was normal in appearance and mobility. The left TVC was normal in appearance and mobility Ordered: SARS-CoV-2 PCR Septoplasty 2. Deviated nasal septum Ordered: SARS-CoV-2 PCR Septoplasty 3. Hypertrophy of nasal turbinates Ordered: SARS-CoV-2 PCR Septoplasty Addendum by ROBINSON AOLNSO on January 08, 2021 16:23:32 PDT Aeromedical Disposition: Continue DNIF/DNIC. Extracted from:Title: ENT Clinic Note Author: KARTIK DOWELL MD Date: 05/14/20 1. Nasal congestion 34 yo M with left sided nighttime nasal congestion with exam notable for leftward deviated septum abutting inferior turbinate. His symptoms are not resolved with flonase. He would be a good candidate for septoturbinoplasty. I have extensively discussed the risks, benefits, and alternatives to a septoturbinoplasty. He is interested in having surgery. We have discussed the operative details, risk of bleeding, infection, pain, scar, numbness, risks of anesthesia, recurrence of nasal obstruction, need for additional surgery, septal perforation, septal hematoma. Patient is aware that splints will be placed in the nose postoperatively for healing purposes. The patient understands. All questions were addressed and answered. Will plan for 14Jun2020. Consent signed in clinic. Kartik Dowell M.D. 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 ) Treated With [26] OPERATIONS ON SALIVARY GLANDS AND DUCTS Any recurrence of disease requires DNIF, full medical evaluation and treatment, and submission of a new waiver request. Expires: Indef All Medical Readiness requirements up to date: YES(Dental, labs, Immunizations) DISTANT VA (uncorrected) R-20/20 L-20/20 NEAR VA (uncorrected) R-20/ 20 L-20/20 HETEROPHORIA: ES: 0 (WNL: equal/less than 15 prism diopters for nonscanner, WNL: equal/less than prism diopters for scanner) EX: 3 (WNL: equal/less than 8 prism diopters for nonscanner, WNL: equal/less than 6 prism diopters for scanner) RH: 0 (WNL: equal/less than 2 prism diopters for nonscanner, WNL: equal/less than 1.5 prism diopters for scanner) LH: 0 (WNL: equal/less than 2 prism diopters for nonscanner, WNL: equal/less than 1.5 prism diopters for scanner) DEPTH PERCEPTION: PASS - D Extracted from:Title: Ambulatory Patient Education Author: DELANO BUITRAGO MD Date: 04/05/19 Patient Education Materials Follows: Future Scheduled TestsLaboratoryHemoglobin A1c 11/06/24Comprehensive Metabolic Panel 11/06/24Lipid Panel 11/06/24 05/30/2025 [id number] Assessment and Plan Extracted from:Title : [facility] [place] Med Clr- PME Author: ELENA JESUS MD Date: 11/29/24 1. Certification status -Available medical records reviewed. DQ conditions identified, requirng ongoing care with neurology, currently at [place]. DNIF -Member is NOT medically cleared for PME -[id number] SIGNED: N/A AMD- cont DNIF WWQ - No, MR Refer to DAWG or IRILO - No DR/MR/FR resulting from this encounter- No new Capt Elena Mc MD, [facility] Flight Surgeon [address] [place] [address], [place] Extracted from:Title: [facility] - Fly PHA Author: JAG ALONZO MD Date: 11/06/24 1. 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 Currently: DNIF Here today for annual fly physical. No occupational safety concerns. No medical concerns during flying operations. ASIMS requirements updated. Due for Dental, flu. PE unremarkable. Audiogram: not yet completed - pt will make appointment Vision: WNL EK Age appropriate counseling: Colonoscopy: no fam hx, due age 46 Annual labs: due today - will order lipids, A1c, CMP (to eval LFTs given elevated BMI) Lung cancer screening: n/a, nonsmoker -Aeromedical status: inactive flying -If member has waiver, what waiver actions needed: n/a - indefinite waiver for parotid gland carcinoma -IMR: MR for recurrence of trigeminal neuralgia, workup -PE [id number] issued via ASIMS -AMD: DNIF for trigeminal neuralgia workup Ordered: Comprehensive Metabolic Panel Hemoglobin A1c Lipid Panel 2. 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 No SI/HI. 3. 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 C-code for this condition retired in 2016 Indefinite waiver for this condition 4. Trigeminal neuralgia Trigeminal neuralgia on the right s/p microvascular decompression in September 2022 that resulted in complete relief of right-sided symptoms Last neurology f/u December 2023 C1 code for this condition retired in January 2024 Pt with recurrence of symptoms in Apr 2024, instructed to see Neurology again, recently PCS'd to [place] and needs a referral Currently, symptoms are right sided, worse with increased activity/HR DNIF at this time, may need waiver if condition does not completely subside (MSD 01 Nov 2024, L25) Fitness and mobility profile entered x90 days Ordered: Referral Request 2.0 - DoD //SIGNED// Capt Jag Carter MD Staff Physician, Flight/Family Medicine [address], [place], [place] Extracted from:Title: [facility]- URI Author: LEANNA COPPOLA, KARENMT Date: 10/11/24 1. URI - Upper respiratory infection Dx is likely lingering Upper Resp infection based on continued sxs since 05 October. NEG Resp Panel on 05 October for Flu/COVID. Continued body aches and sore throat with slightly worsened rhinorrhea, PND, and cough. Oropharynx showed slight erythema, likely secondary to PND/cough- no deep erythema or exudates that would suggest Strep. Dry cough per patient with no production, SoB at rest, or trouble breathing- Lungs CTAB in clinic. Exam otherwise WNL. Slightly Tachy today in clinic- likely secondary to viral infection. Nausea likely secondary to PND- will consider Antiemetics in the future if worsened. VS otherwise WNL. Continue with OTC Mucinex D, will add Sinus Rinse kit for congestion. Can also add OTC cepacol- recommended warm tea with honey as well. Discussed use of tylenol for acute pain. Increased rest and hydration- placed on 48 hr QTRS. No Red Flags. Abnormal VS Addressed. Treated IAW IDMT green protocols without deviation. Er/return precautions given. PVUA, no further questions. AMD: Cont DNIF- Will likely need waiver for prior condition- to discuss with PCM on Oct Lenana Coppola, , [employer] Element [employer], [facility] Independent Duty Production [employer] Flight Medicine [facility] [place], [place] Ordered: sodium chloride nasal(Arapaho Sinus Rinse Kit nasal powder for reconstitution), See Instructions, Dissolve the contents of one packet in 8 oz of purified/filtered water and instill into sinuses as directed, # 50 EA, 0 total refill(s), Maintenance, Pharmacy: [facility] [Last filled 10/11/24] Extracted from:Title: CSSP Author: DARRIAN PRINCE RN Date: 10/06/24 1. 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 Hx of Trigeminal Neuralgia- surgical intervention 2022 and carcinoma of the carotid artery- surgical intervention, unsure of the date. Stated he did have an MEB but no waiver. SM did have COVID in the past. NKDA. Spouse at home with same symptoms. Presented to sick call with c/o sore throat, tonsil intact, unproductive cough, body aches and pains, nausea, ACEVEDO 2-3/10, frontal lobe, described as dull, winded and slight dizziness w/ambulation, increased fatigue. Denied CP, SOB, ear fullness or pain, loss of taste or smell, chills, cold intolerance or sweats, sinus congestion , chest congestion, vomiting or diarrhea or other complaints at this time. Home Care- none. 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 Ears were clear and membrane was intact, tonsils were pink, non swollen, no exudate as seen on visual exam. Able to valsalava w/o difficulty. Discussed s/s w/provider who agreed to care plan. Nasal swab/Resp panel, (RESP 2.1) completed and sent to lab for testing. Informed the patient he will receive a call for any positive results; however, should monitor KALA/ASHLEY for the results. Triage and home care discussed per [facility] protocols, Acute nasopharyngitis [common cold]. This included hot steamy showers, use of VapoSteam tablets in the shower, humidified warm air, increased fluids, saltwater gargles, OTC pain relief, Mucinex or Robitussin for the cough, methanol rubs and moist heat to the chest, hard candies or cough drops, cold fluids/ice chips/popsicles, hand washing, covering mouth and nose when coughing, wearing an appropriate mask when in close quarters of others, rest, sleep w/HOB elevated at 30degree or sleep on stomach, if possible. Placed on 24hr, SM is off the next two days. Advised on RTFS apt once s/s have improved. Given call back instructions if the condition worsens/symptoms develop/no improvement w/in next 5-7 days, and when to report to the ED. Ensured had call back number for C and this RN. is aware of the NAL/ER if the need arises, will call back if s/s worsen. Patient verbalized understanding and agreed to care plan/treatment. Denied further questions or concerns at this time. Care Pathways Current Visit [facility] Adult Cold(Started Date: October 06, 2024) [facility] Adult Cold v3 - INCLUSION criterion: Patient IS between 18 and 65 years old. - INCLUSION criterion: Patient DOES report symptoms of a common cold (runny/stuffy nose, congestion, post-nasal drip, sneezing, cough, sore/scratchy throat, fever, ear fullness, and/or muscle aches). - EXCLUSION criteria: Diastolic BP less than 60 or greater than 90 mmHg,Nausea, vomiting, or diarrhea,Dizziness or fainting, and History of diabetes, cancer, chronic kidney disease, HIV, or taking immunosuppressants - DIFFERENTIAL criteria (current presence and the rapid onset of the following symptoms over the past 48 hours): Chills,Fatigue or general discomfort,Muscle aches or pains,Headache, and Non-productive cough - Provider notified of positive exclusion criteria and/or two or more differential criteria. Provider stated: Continue with clinical standard staff protocol - A/P: Patient met clinical standard staff protocol criteria for adult cold. Supportive and symptomatic care discussed: Drink plenty of fluids to ensure adequate hydration,Gargle with salt water to help relieve a sore throat,Wash hands regularly to avoid the spread of infection,Cover your cough with your arm or a tissue,OTC medications as desired, could include the following: guaifenesin, pseudoephedrine, Cepacol lozenges, ibuprofen, acetaminophen, saline nasal spray, and/or Afrin nasal spray, and Follow up if symptoms worsen or are not improving after 2-3 days of treatment - Disposition: Counseled patient to follow plan of care Extracted from:Title: [facility] virt trigeminla neuralgia Author: JULIANNE JONES DO Date: 05/01/24 1. Administrative statuses Pt states already talked with COl Mcgregor, and now is having tirgeminal neralgia reocurrence. pt to see neurology to eval. no acute concerns. AMD- DNIF Capt Jeremiah Jones DO Flight Surgeon, [address] [employer] Extracted from:Title: [facility] - profile update Author: JULIANNE JONES DO Date: 04/25/24 1. COVID-19 asymptomatic, but pt deconditioned, will modify profile to allow for sufficeint time to recover and pass PT test AMD- NO CHANGE TO FLYING STATUS BASED ON THIS ENCOUNTER Capt Jeremiah Jones DO Flight Surgeon, [address], [employer] Extracted from:Title: URI_IDMT Author: ERNESTO OLVERA Date: 02/15/24 Common cold Based upon history, symptoms, and physical exam; pt will be treated for Viral URI. Pt placed on DNIF x 7days and placed on 72hrs quarters. Pt prescribed Mucinex-D and Motrin. Pt advised to f/u with clinic within days to RTFS. Report to the ER in the event of chest pain, shortness of breath, fever over 100.4, or 10/10 pain. DDX: Allergic Rhinitis: Turbinates erythemic Bronchitis/Pneumonia: Lungs CTA Strep: Negative Centor Criteria FLU/COVID/RSV: Awaiting test results Patient is DNIF X 7 days NO FR MR from this encounter. Quarters :N WWQ from this encounter - Y Meets retention standards from this encounter - Y ERNESTO OLVERA, [facility], MSgt, IDMT [employer] Josep Luevano [facility], [employer], [place] Ordered: ibuprofen(ibuprofen 800 mg oral tablet), 1 tab(s), Oral, every 8 hr, X 10 days, # 30 tab(s), 0 total refill(s), Acute, 02/25/2024, 1 tab(s) Oral every 8 hr,x10 days, Pharmacy: [facility] [Not filled] pseudoephedrine-guaifenesin(Mucine x D Max Strength 120 mg-1200 mg oral tablet, extended release), 1 tab(s), Oral, every 12 hr, X 14 days, # 28 tab(s), 0 total refill(s), Acute, 1 tab(s) Oral every 12 hr,x14 days, Pharmacy: [facility] [Not filled] SC2/FLU A/FLU B/RSV PCR Strep Group A PCR Extracted from:Title: Neurology - hx of trigeminal neuralgia NAKITA Author: REFUGIO PRESCOTT MD Date: 01/11/24 1. Trigeminal neuralgia 38 year old man with history of trigeminal neuralgia on the right s/p microvascular decompression in September 2022 that has resulted in complete relief of right-sided symptoms. He has no residual symptoms of trigeminal neuralgia and requires no additional therapies for this condition at this time. From a pure neurology/medical standpoint, the patient does not need scheduled follow up and can be seen on an as needed basis. The patient and I discussed that he may be required to return from an [employer] standpoint though. All questions answered to the best of my abilities. Activity restrictions and duration WWQ - Yes Refer to DAWG or IRILO - No DR/MR/FR resulting from this encounter? No Member meets retention standards? From a neurologic perspective, yes. The patient no longer meets MSD criteria as outlined in MSD, [id number], L25 since his condition has completely subsided. I spent >30 minutes on this patient's care on the date of service outside of any procedure time. This includes but is not limited to reviewing prior tests, obtaining/reviewing history, performing a medically appropriate examination, counseling, ordering medications/tests/procedures, referring and communicating with other professionals, documenting clinical information in the health record, and independently interpreting results. Refugio Prescott MD, MS Major, [facility], Adult Neurology and Neuromuscular Medicine [place], [place] Extracted from:Title: Flt Med PHA Author: ROBERTO CHARLES MD Date: 05/26/23 1. 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 Visual screening reviewed (Meets requirements), audiogram reviewed (H1), vitals signs reviewed (WNL). He has had a successful surgery for his trigeminal neuralgia and does not have significant sequelae and should not need waiver as per MSD L25 as he has no functional deficits and no aeromedical concerns related to prior history of. - No CV restrictions identified. - No other patient complaints, questions or concerns. - Aeromedical Disposition: Will unsuspend he needs to complete PHA in [facility] to complete new 2992 2. 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 Trigeminal neuralgia 37 year old man with trigeminal neuralgia on the right now s/p microvascular decompression in September 2022 that has resulted in complete relief of right-sided symptoms. Discussed today some left-sided symptoms that are similar to in the past (less severe than the right), and possible etiologies including but not limited to idiopathic trigeminal neuralgia (given no clear structural cause on MRI X2, last in Aug 2022) vs. dental/TMJ-related. We discussed options moving forward including patient seeing dental, starting on gabapentin empirically, repeat imaging. We agreed at this time for the patient to see dental / orofacial pain, without restarting medication therapy. Separately, I reviewed the Referral management system and informed him that his Neurosurgery referrals that were placed were all cancelled because he is already established. There is no clear indication that he needs to return to see them for the left-sided symptoms at this time. The patient may return to this clinic on an as needed basis. All questions were answered to the best of my abilities. For references in case of an ER visit, for rescue treatment in the setting of an acute exacerbation of trigeminal neuralgia, IV fosphenytoin is the treatment of choice combined with rehydration when presenting to the ER. A reasonable dose is 20mg PE (phenytoin equivalents)/kg IV with a max dose of 1500mg (based on today's weight, patient would receive max dose) Activity restrictions and duration WWQ - Yes from a neurology standpoint Refer to ROBEL or LATONIA - No DR/MR/FR resulting from this encounter? No Member meets retention standards? Patient currently falls under MSD, [id number], L25 I spent >30 minutes on this patient's care on the date of service. This includes but is not limited to reviewing prior tests, obtaining/reviewing history, performing a medically appropriate examination, counseling, ordering medications/tests/procedures, referring and communicating with other professionals, documenting clinical information in the health record, and independently interpreting results. Refugio Prescott MD, MS Abdi, [facility], Adult Neurology and Neuromuscular Medicine [place], [place] Extracted from:Title: Office Clinic Note Author: WILL TREVIZO MD Date: 11/04/22 Much improved after microvascular decompression for trigeminal neuralgia with complete relief of right-sided facial pain. Recommend increase activity slowly as tolerated. Taper the gabapentin slowly, he may maintain the medication at a small dose to address the left-sided pain. He has a as needed appointment in the clinic. Extracted from:Title: Discharge Note Author: RAJINDER HODGES PA Date: 10/21/22 Trigeminal neuralgia Patient to discharge in stable condition. See pre-printed post-operative instructions. Discharge medications: Arvada and Colace. Follow up appointment:Please call to confirm follow up appointment is scheduled for 10-14 days after surgery at [facility] [phone]. Ordered: Admit to Inpatient Orders: acetaminophen(acetaminophen), 650 mg, Oral, Tablet, every 6 hr, PRN pain (mild), First Dose: 10/21/2022 12:47:00 PDT, 10/21/2022 12:47:00 PDT docusate(Colace), 100 mg, Oral, Capsule, BID, First Dose: 10/21/2022 21:00:00 PDT, 10/21/2022 12:47:00 PDT docusate(Colace 100 mg oral capsule), 1 cap(s), Oral, BID, PRN constipation, # 60 cap(s), 0 total refill(s), Maintenance, 1 cap(s) Oral BID,PRN:as needed for constipation, Pharmacy: [facility] [Not filled] hydrALAZINE(hydrALAZINE), 5 mg, IV Push (Intravenous), Injection, every 1 hr, PRN hypertension (see comment), First Dose: 10/21/2022 12:47:00 PDT, 10/21/2022 12:47:00 PDT labetalol(labetalol), 5 mg, IV Push (Intravenous), Injection, every 1 hr, PRN hypertension (see comment), First Dose: 10/21/2022 12:47:00 PDT, 10/21/2022 12:47:00 PDT polyethylene glycol 3350(MiraLax), 17 g, Oral, Powder-Oral, BID, PRN constipation, First Dose: 10/21/2022 12:47:00 PDT, 10/21/2022 12:47:00 PDT morphine(morphine), 2 mg, IV Push (Intravenous), Injection, every 2 hr, PRN breakthrough pain, First Dose: 10/21/2022 12:47:00 PDT HYDROcodone-acetaminophen(Arvada 10 mg-325 mg oral tablet), 1 tab(s), Oral, Tablet, every 4 hr, PRN pain (severe), First Dose: 10/21/2022 12:47:00 PDT, 10/21/2022 12:47:00 PDT HYDROcodone-acetaminophen(Arvada 10 mg-325 mg oral tablet), 1 tab(s), Oral, every 4 hr, PRN pain (severe), # 40 tab(s), 0 total refill(s), Acute, 10/29/2022, 1 tab(s) Oral every 4 hr,PRN:pain (severe), Pharmacy: [facility] [Not filled] HYDROcodone-acetaminophen(Arvada 5 mg-325 mg oral tablet), 1 tab(s), Oral, Tablet, every 4 hr, PRN pain (moderate), First Dose: 10/21/2022 12:47:00 PDT, 10/21/2022 12:47:00 PDT sodium chloride 0.9% 1,000 mL(normal saline drip 1,000 mL), IV Drip (Intravenous), Order Rate: 70 mL/hr, Order Weight: 120.2 kg, Start Date: 10/21/2022 12:47:00 PDT senna(senna), 8.6 mg, Oral, Tablet, BID, First Dose: 10/21/2022 21:00:00 PDT, 10/21/2022 12:47:00 PDT ondansetron(Zofran), 4 mg, IV Push (Intravenous), Injection, every 6 hr, PRN nausea, First Dose: 10/21/2022 12:47:00 PDT, 10/21/2022 12:47:00 PDT Consult to Discharge Planning Clear Liquid Diet ABORh Retype Basic Metabolic Panel CBC w/ Diff PT and INR PTT Type and Screen Bedside Incentive Spirometry Bedside Incentive Spirometry Clinical Condition Communication Order Discontinue IV Fluids Head of Bed Intake and Output Intermittent pneumatic compression devices Intermittent pneumatic compression devices Intermittent pneumatic compression devices Neurological Checks Notify Treating Provider Neuro Specialty Notify Treating Provider Temperature Patient Education Straight Catheter Up ad Jillian Up with Assistance Urinary Catheter Urinary Catheter Discontinue Vital Signs Physical Therapy (PT) Inpatient Evaluation and Treatment CT Brain/Head w/o Contrast Oximetry - Continuous Oxygen Therapy Addendum by RAJINDER HODGES PA on October 23, 2022 08:05:32 PDT patient post op stable. dc home today. Extracted from:Title: Office Clinic Note Author: MAYRA ARCINIEGA IDMT Date: 10/13/22 1. 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 We discussed and implemented the treatment plan according to standard protocol. I have reviewed the note and concur with the findings as documented. AMD- NO DNIF; WWQ, No AMRO/IRILO/MEB or FR/MR/DR based on this encounter Capt Elena Mc MD, [facility] Flight Surgeon [employer] [place], [place] Extracted from:Title: Neurology - trigeminal neuralgia Author: REFUGIO PRESCOTT MD Date: 08/19/22 1. Trigeminal neuralgia 36 year old man with symptoms since late 2020 originally in the right V1/V2>V3 distributions but now with bilateral symptoms most consistent with diagnosis of trigeminal neuralgia. MRI X2 have demonstrated vascular contact with the right trigeminal nerve near the root entry zone, but not the left. Gabapentin 600mg TID had been helpful, but he recently had a severe flare, requiring treatment in the ER, responding to fosphenytoin infusion, as directed in my previous clinical note. The patient and I discussed multiple options moving forward: 1) increase dose of gabapentin, 2) transition to carbamazepine or oxcarbazepine, or 3) neurosurgical consultation. Through joint decision making, we agreed to the following plan: - increase gabapentin dose to up to 900mg TID (new script for 300mg capsules written today) - neurosurgery consultation - new order for MRI brain to compare to prior studies. All questions were answered to the best of my abilities. The patient will follow up with me as needed to assist with future steps. As stated previously, for rescue treatment in the setting of an acute exacerbation, IV fosphenytoin is the treatment of choice combined with rehydration when presenting to the ER. A reasonable dose is 20mg PE (phenytoin equivalents)/kg IV with a max dose of 1500mg (based on today's weight, patient would receive max dose) Ordered: MRI Brain w/ + w/o Contrast Referral Request 2.0 Orders: gabapentin(gabapentin 300 mg oral capsule), See Instructions, take up to three capsules by mouth three times per day, as directed by your physician, # 810 cap(s), 2 total refill(s), Maintenance, take up to three capsules by mouth three times per day, as directed by your physician, Pharmacy: [facility]... Activity restrictions and duration WWQ - Yes Refer to DAWG or IRILO - Not at this time DR/MR/FR resulting from this encounter? Not at this time Member meets retention standards? Patient currently falls under MSD, [id number], L25 >50% of the time with this patient were spent counseling or coordinating care including discussion of diagnosis, prognosis, and various treatments detailed in the assessment and plan above. Refugio Prescott MD, MS Major, [facility], Adult Neurology and Neuromuscular Medicine [facility], [place], [place] Addendum by PHIL LE MD on August 19, 2022 13:53:20 PST Greatly appreciate Neuro assistance with this pt. AMD- CONTINUE DNIF Capt Phil Le MD Flight Surgeon, [address] [employer], [facility] [place] Extracted from:Title: Neurology FTR Author: REFUGIO PRESCOTT MD Date: 03/13/22 Atypical facial pain 35 year old man with symptoms since late 2020 in the right V1/V2>V3 distributions with MRI demonstrating vascular contact with the right trigeminal nerve near the root entry zone. Clinically, the patient does not meet full criteria for trigeminal neuralgia, given his lack of precipitation by innocuous stimuli; however, given the imaging findings and distribution of symptoms, this is likely the cause. He has done well on gabapentin, currently at 600mg TID, which he increased recently. Given his increase in symptoms and involvement of the contralateral side, discussed that he could increase to 900mg TID then 1200mg TID if desired. In the event that gabapentin is not beneficial, f or long-term treatment, carbamazepine (Tegretol) and oxcarbazepine (Trileptal) are considered first line, with carbamazepine having the best evidence as a assisted treatment modality, but is less well tolerated than oxcarbazepine. We previously discussed the following most common adverse effects of these medications: drowsiness, headache, fatigue, nausea, hyponatremia. I previously ordered baseline labs in preparation for this, but they were not done so I am ordering them again today (CBC with differential, iron panel, CMP, [id number]). Given his new symptoms on the left side, will order repeat MRI for further evaluation, in preparation also for possible visit back with neurosurgery. For rescue treatment in the setting of an acute exacerbation, IV fosphenytoin is the treatment of choice combined with rehydration when presenting to the ER. A reasonable dose is 20mg PE (phenytoin equivalents)/kg IV with a max dose of 1500mg (based on today's weight, patient would receive max dose) All questions answered to the best of my abilities. Ordered: MRI Brain w/ + w/o Contrast Orders: CBC w/ Diff Comprehensive Metabolic Panel Iron Studies Miscellaneous Sendout Activity restrictions and duration WWQ - Yes Refer to DAWG or IRILO - No DR/MR/FR resulting from this encounter? No Member meets retention standards? From a neurologic perspective, yes >50% of the time with this patient were spent counseling or coordinating care including discussion of diagnosis, prognosis, and various treatments detailed in the assessment and plan above. Refugio Prescott MD, MS Abdi, [facility], Adult Neurology and Neuromuscular Medicine [place], [place] Addendum by ELENA JESUS MD on March 16, 2022 17:42:43 PDT AMD- Cont DNIF Capt Elena Mc MD Flight Surgeon, [address], [employer] Extracted from:Title: [facility]: F/u atypical facial pain Author: ELENA JESUS MD Date: 02/17/22 1. Atypical facial pain Bl facial sharp pain x 7 months despite 1500mg gabapentin total daily dose without improvement. Exam overall unremarkable today. Request reeval with neuro now that pain is BL. Original thought of vessel abutting trigeminal nerve on right side as possible source of pain, however NSYG preferred medical management if possible, now pain also on left side with unclear source. Consider ongoing atypical facial pain, trigeminal neuralgia, atypical ACEVEDO, less likely shingles given distribution, TMJD not demonstrated on imaging. 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 AMD- DNIF; WWQ, No AMRO/IRILO/MEB or FR// based on this encounter Capt Elena Mc MD Flight Surgeon, [address] [employer] Extracted from:Title: Neurology SPEC - atypical facial pain (likely trigeminal neuralgia) Author: REFUGIO PRESCOTT MD Date: 09/11/21 1. Atypical facial pain 35 year old man with approximately 3 months of symptoms in the right V1/V2>V3 distributions with MRI demonstrating vascular contact with the right trigeminal nerve near the root entry zone. Clinically, the patient does not meet full criteria for trigeminal neuralgia, given his lack of precipitation by innocuous stimuli; however, given the imaging findings and distribution of symptoms, this is likely the cause. He has done well on gabapentin, currently at 300mg TID. We discussed that while this is not considered first line therapy, if he is doing well, there is no reason to change. I counseled him that he can increase this to up to 1200mg TID, as long as he is tolerating this fine. In the event that gabapentin is not beneficial, f or long-term treatment, carbamazepine (Tegretol) and oxcarbazepine (Trileptal) are considered first line, with carbamazepine having the best evidence as a termite control representative treatment modality, but is less well tolerated than oxcarbazepine. We discussed the following most common adverse effects of these medications: drowsiness, headache, fatigue, nausea, hyponatremia. In preparation for this, I am ordering baseline labs needed (CBC with differential, iron panel, CMP, [id number]), since I do not see any in [place]. For rescue treatment in the setting of an acute exacerbation, IV fosphenytoin is the treatment of choice combined with rehydration when presenting to the ER. A reasonable dose is 20mg PE (phenytoin equivalents)/kg IV with a max dose of 1500mg (based on today's weight, patient would receive max dose) There is no need for follow up in this clinic given he is actively being managed by neurosurgery. All questions answered to the best of my abilities. Orders: CBC w/ Diff Comprehensive Metabolic Panel Iron Studies Miscellaneous Sendout Activity restrictions and duration WWQ - Yes Refer to DAWG or IRILO - No DR/MR/FR resulting from this encounter? No Member meets retention standards? From a neurologic perspective, yes >50% of the time with this patient were spent counseling or coordinating care including discussion of diagnosis, prognosis, and various treatments detailed in the assessment and plan above. Refugio Prescott MD, MS Abdi, [facility], Adult Neurology and Neuromuscular Medicine [place], [place] No qualifying data available. Extracted from:Title: [facility]: Jaw pain/ER follow-up Author: ELENA JESUS MD Date: 08/05/21 1. Jaw pain 35M s/p left parotidectomy for malignant neoplasm with chronic right jaw pain, dull and achy with intermittent sharp pain with moderate improvement s/p ketamine in ED last night and 1day of gabapentin 300mg TID and hydrocodone 5mg PRN. Member already followed by [facility] with pending MRI, pt to f/u with dental tomorrow to review results and plan moving forward. Differential to include trigeminal neuralgia vs TMJD, although sharma-xray of jaw was unremarkable at the TMJ, otherwise no evidence of new mass, obvious deformity on CT or other intrasinus etiology at this time. Will continue to follow patient and specialty recommendations. -Defer medical/pharmacologic management to specialist (pain specialist with dental; although flight med may facilitate med refills based on specialty recommendations). Current ER discharge meds as follows: --Gabapentin 300mg TID (per [facility] recs) --Arvada 5mg Q4-6hr PRN for pain --Zofran PRN for nausea -continue cold water rinses to help with tooth/jaw pain PRN -ER precautions reviewed -Pt to f/u with dental for MRI read review and additional management recs. 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 AMD- DNIF for medication use WWQ, No AMRO/IRILO/MEB or FR/MR/ based on this encounter; however if requires surgery, specialty follow-up frequently or risk for incapacitation, may require additional restrictions Capt Elena Mc MD Flight Surgeon, [address] [employer] Extracted from:Title: new chiro Office Clinic Note, neck, Rt arm Author: IVAN JACOB DC Date: 06/24/21 1. Degeneration of thoracic intervertebral disc Activator protocol LPD S/L, LPI. HVLA PA mid T, CT inf fix BL. Ordered: Office Visit Level 3 [facility] 2. Cervical segmental dysfunction Ordered: Office Visit Level 3 [facility] 3. Sacral somatic dysfunction Ordered: Office Visit Level 3 [facility] Addendum by RAYA BRADSHAW MD on June 25, 2021 09:54:23 PST AMD- NO DNIF FOR THIS ENCOUNTER RAYA BRADSHAW MD, SENIOR FLIGHT SURGEON, [facility] Extracted from:Title: ENT Clinic Note Author: MD ROBERT, KARTIK WILLIS MD Date: 01/20/21 1. Postoperative visit Ordered: Postop [place] [id number] Extracted from:Title: ENT Clinic Note- Preop septoturbinoplasty Author: MD ROBERT, KARTIK WILLIS MD Date: 01/07/21 1. Nasal obstruction 34 yo M with left sided nasal congestion with exam notable for leftward deviated septum abutting inferior turbinate. His symptoms are not resolved with flonase. He would be a good candidate for septoturbinoplasty. I have extensively discussed the risks, benefits, and alternatives to a septoturbinoplasty. He is interested in having surgery. We have discussed the operative details, risk of bleeding, infection, pain, scar, numbness, risks of anesthesia, recurrence of nasal obstruction, need for additional surgery, septal perforation, septal hematoma. Patient is aware that splints will be placed in the nose postoperatively for healing purposes. The patient understands. All questions were addressed and answered. Will plan for 01/15/2021. Consent signed in clinic. Will place preop covid test Kartik Dowell M.D. Staff [employer] [facility] Dept of Otolaryngology-Head and Neck Surgery History 34 yo M referred to ENT for evaluation of nasal breathing. He was set for septoturbinoplasty in May 2020, however had to cancel. No changes since last being seen. He notes that 17 years ago he had facial trauma but never got treated. He notes that since then, he has always had left sided nasal obstruction. He states he was previously seen by an ENT and prescribed flonase, however notes that it has not benefited him much. Notes left sided nasal congestion, usually at night. Also notes dryness to his left nostril. No epistaxis. Patient currently without fevers, chills, sweats, wt loss. No bleeding d/o or anesthesia complications. 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 Patient was followed for 3 years postoperatively without evidence of disease. He is doing fine from that standpoint. Physical Exam Current VS reviewed. No abnormalities noted. GEN: WD/WN in NAD Alert and Oriented, normal mood and affect NL voice and communication HEAD/FACE: Normocephalic/Normal facial exam No tenderness to sinus palpation NL salivary glands NL facial strength EOMI, NL gaze alignment EARS: NL pinnas bilaterally NL clinical speech threshold RIGHT EAR: NL EAC, TM without evidence for perforation, retraction, or effusion LEFT EAR: NL EAC, TM without evidence for perforation, retraction, or effusion NOSE: NL external nose leftward deviated septum abutting inferior turbinate. No caudal involvement Inferior nasal turbinates 2/4 bilaterally OC/OP: NL lips, teeth, gingiva NL oral mucosa, hard and soft palate, tongue, tonsils, and post pharynx by visual inspection NECK: NL Thyroid Exam No lymphadenopathy RESP: Chest rise symmetric with normal expansion and respiratory effort PVS: Upper extremities without clubbing, cyanosis, edema, or varicosities NEURO: CN II-XII grossly intact. Procedure: Flexible Fiberoptic Laryngoscopy: Topical anesthetic and decongestant were applied to both nasal passages. The inferior and middle turbinates were normal. No pus, polyps, or masses were observed. Nasopharynx was normal. Unremarkable adenoid tissue. The base of tongue, vallecula, epiglottis, and pyriform sinuses were normal without lesions or masses. The right TVC was normal in appearance and mobility. The left TVC was normal in appearance and mobility Ordered: SARS-CoV-2 PCR Septoplasty 2. Deviated nasal septum Ordered: SARS-CoV-2 PCR Septoplasty 3. Hypertrophy of nasal turbinates Ordered: SARS-CoV-2 PCR Septoplasty Addendum by ROBINSON ALONSO on January 08, 2021 16:23:32 PDT Aeromedical Disposition: Continue DNIF/DNIC. Extracted from:Title: ENT Clinic Note Author: KARTIK DOWELL MD Date: 05/14/20 1. Nasal congestion 34 yo M with left sided nighttime nasal congestion with exam notable for leftward deviated septum abutting inferior turbinate. His symptoms are not resolved with flonase. He would be a good candidate for septoturbinoplasty. I have extensively discussed the risks, benefits, and alternatives to a septoturbinoplasty. He is interested in having surgery. We have discussed the operative details, risk of bleeding, infection, pain, scar, numbness, risks of anesthesia, recurrence of nasal obstruction, need for additional surgery, septal perforation, septal hematoma. Patient is aware that splints will be placed in the nose postoperatively for healing purposes. The patient understands. All questions were addressed and answered. Will plan for 14Jun2020. Consent signed in clinic. Kartik Dowell M.D. 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 ) Treated With [26] OPERATIONS ON SALIVARY GLANDS AND DUCTS Any recurrence of disease requires DNIF, full medical evaluation and treatment, and submission of a new waiver request. Expires: Indef All Medical Readiness requirements up to date: YES(Dental, labs, Immunizations) DISTANT VA (uncorrected) R-20/20 L-20/20 NEAR VA (uncorrected) R-20/ 20 L-20/20 HETEROPHORIA: ES: 0 (WNL: equal/less than 15 prism diopters for nonscanner, WNL: equal/less than prism diopters for scanner) EX: 3 (WNL: equal/less than 8 prism diopters for nonscanner, WNL: equal/less than 6 prism diopters for scanner) RH: 0 (WNL: equal/less than 2 prism diopters for nonscanner, WNL: equal/less than 1.5 prism diopters for scanner) LH: 0 (WNL: equal/less than 2 prism diopters for nonscanner, WNL: equal/less than 1.5 prism diopters for scanner) DEPTH PERCEPTION: PASS - D Extracted from:Title: Ambulatory Patient Education Author: DELANO BUITRAGO MD Date: 04/05/19 Patient Education Materials Follows: Future Scheduled TestsLaboratoryHemoglobin A1c 11/06/24Comprehensive Metabolic Panel 11/06/24Lipid Panel 11/06/24 05/30/[address] [place] [address] Assessment and Plan Extracted from:Title : [facility] [place] Med Clr- PME Author: ELENA JESUS MD Date: 11/29/24 1. Certification status -Available medical records reviewed. DQ conditions identified, requirng ongoing care with neurology, currently at [place]. DNIF -Member is NOT medically cleared for PME -[id number] SIGNED: N/A AMD- cont DNIF WWQ - No, MR Refer to DAWIan or IRILO - No DR/MR/FR resulting from this encounter- No new Capt Elena Mc MD, [facility] Flight Surgeon [employer] [place] [address], [place] Extracted from:Title: [facility] - Fly PHA Author: JAG ALONZO MD Date: 11/06/24 1. 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 Currently: DNIF Here today for annual fly physical. No occupational safety concerns. No medical concerns during flying operations. ASIMS requirements updated. Due for Dental, flu. PE unremarkable. Audiogram: not yet completed - pt will make appointment Vision: WNL EK Age appropriate counseling: Colonoscopy: no fam hx, due age 46 Annual labs: due today - will order lipids, A1c, CMP (to eval LFTs given elevated BMI) Lung cancer screening: n/a, nonsmoker -Aeromedical status: inactive flying -If member has waiver, what waiver actions needed: n/a - indefinite waiver for parotid gland carcinoma -IMR: MR for recurrence of trigeminal neuralgia, workup -[id number] [facility] -AMD: DNIF for trigeminal neuralgia workup Ordered: Comprehensive Metabolic Panel Hemoglobin A1c Lipid Panel 2. 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 No SI/HI. 3. 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 C-code for this condition retired in 2016 Indefinite waiver for this condition 4. Trigeminal neuralgia Trigeminal neuralgia on the right s/p microvascular decompression in September 2022 that resulted in complete relief of right-sided symptoms Last neurology f/u December 2023 C1 code for this condition retired in January 2024 Pt with recurrence of symptoms in Apr 2024, instructed to see Neurology again, recently PCS'd to [place] and needs a referral Currently, symptoms are right sided, worse with increased activity/HR DNIF at this time, may need waiver if condition does not completely subside (MSD 01 Nov 2024, L25) Fitness and mobility profile entered x90 days Ordered: Referral Request 2.0 - DoD //SIGNED// Capt Jag Carter MD Staff Physician, Flight/Family Medicine [address], [employer], [place] Extracted from:Title: [facility]- URI Author: LEANNA COPPOLA, [facility] Date: 10/11/24 1. URI - Upper respiratory infection Dx is likely lingering Upper Resp infection based on continued sxs since 05 October. NEG Resp Panel on 05 October for Flu/COVID. Continued body aches and sore throat with slightly worsened rhinorrhea, PND, and cough. Oropharynx showed slight erythema, likely secondary to PND/cough- no deep erythema or exudates that would suggest Strep. Dry cough per patient with no production, SoB at rest, or trouble breathing- Lungs CTAB in clinic. Exam otherwise WNL. Slightly Tachy today in clinic- likely secondary to viral infection. Nausea likely secondary to PND- will consider Antiemetics in the future if worsened. VS otherwise WNL. Continue with OTC Mucinex D, will add Sinus Rinse kit for congestion. Can also add OTC cepacol- recommended warm tea with honey as well. Discussed use of tylenol for acute pain. Increased rest and hydration- placed on 48 hr QTRS. No Red Flags. Abnormal VS Addressed. Treated IAW IDMT green protocols without deviation. Er/return precautions given. PVUA, no further questions. AMD: Cont DNIF- Will likely need waiver for prior condition- to discuss with PCM on Oct SSgt Lucila, [facility] Element Chief, [facility] Independent Duty Production [facility] Medicine [facility], [place] Ordered: sodium chloride nasal(Arapaho Sinus Rinse Kit nasal powder for reconstitution), See Instructions, Dissolve the contents of one packet in 8 oz of purified/filtered water and instill into sinuses as directed, # 50 EA, 0 total refill(s), Maintenance, Pharmacy: [facility] [Last filled 10/11/24] Extracted from:Title: CSSP Author: DARRIAN PRINCE RN Date: 10/06/24 1. 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 Hx of Trigeminal Neuralgia- surgical intervention 2022 and carcinoma of the carotid artery- surgical intervention, unsure of the date. Stated he did have an MEB but no waiver. SM did have COVID in the past. NKDA. Spouse at home with same symptoms. Presented to sick call with c/o sore throat, tonsil intact, unproductive cough, body aches and pains, nausea, ACEVEDO 2-3/10, frontal lobe, described as dull, winded and slight dizziness w/ambulation, increased fatigue. Denied CP, SOB, ear fullness or pain, loss of taste or smell, chills, cold intolerance or sweats, sinus congestion , chest congestion, vomiting or diarrhea or other complaints at this time. Home Care- none. 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 Ears were clear and membrane was intact, tonsils were pink, non swollen, no exudate as seen on visual exam. Able to valsalava w/o difficulty. Discussed s/s w/provider who agreed to care plan. Nasal swab/Resp panel, (RESP 2.1) completed and sent to lab for testing. Informed the patient he will receive a call for any positive results; however, should monitor KALA/ASHLEY for the results. Triage and home care discussed per [facility] protocols, Acute nasopharyngitis [common cold]. This included hot steamy showers, use of VapoSteam tablets in the shower, humidified warm air, increased fluids, saltwater gargles, OTC pain relief, Mucinex or Robitussin for the cough, methanol rubs and moist heat to the chest, hard candies or cough drops, cold fluids/ice chips/popsicles, hand washing, covering mouth and nose when coughing, wearing an appropriate mask when in close quarters of others, rest, sleep w/HOB elevated at 30degree or sleep on stomach, if possible. Placed on 24hr, SM is off the next two days. Advised on RTFS apt once s/s have improved. Given call back instructions if the condition worsens/symptoms develop/no improvement w/in next 5-7 days, and when to report to the ED. Ensured had call back number for [facility] and this RN. is aware of the NAL/ER if the need arises, will call back if s/s worsen. Patient verbalized understanding and agreed to care plan/treatment. Denied further questions or concerns at this time. Care Pathways Current Visit [facility] Adult Cold(Started Date: October 06, 2024) [facility] Adult Cold v3 - INCLUSION criterion: Patient IS between 18 and 65 years old. - INCLUSION criterion: Patient DOES report symptoms of a common cold (runny/stuffy nose, congestion, post-nasal drip, sneezing, cough, sore/scratchy throat, fever, ear fullness, and/or muscle aches). - EXCLUSION criteria: Diastolic BP less than 60 or greater than 90 mmHg,Nausea, vomiting, or diarrhea,Dizziness or fainting, and History of diabetes, cancer, chronic kidney disease, HIV, or taking immunosuppressants - DIFFERENTIAL criteria (current presence and the rapid onset of the following symptoms over the past 48 hours): Chills,Fatigue or general discomfort,Muscle aches or pains,Headache, and Non-productive cough - Provider notified of positive exclusion criteria and/or two or more differential criteria. Provider stated: Continue with clinical standard staff protocol - A/P: Patient met clinical standard staff protocol criteria for adult cold. Supportive and symptomatic care discussed: Drink plenty of fluids to ensure adequate hydration,Gargle with salt water to help relieve a sore throat,Wash hands regularly to avoid the spread of infection,Cover your cough with your arm or a tissue,OTC medications as desired, could include the following: guaifenesin, pseudoephedrine, Cepacol lozenges, ibuprofen, acetaminophen, saline nasal spray, and/or Afrin nasal spray, and Follow up if symptoms worsen or are not improving after 2-3 days of treatment - Disposition: Counseled patient to follow plan of care Extracted from:Title: [facility] virt trigeminla neuralgia Author: JULIANNE JONES, Date: 05/01/24 1. Administrative statuses Pt states already talked with COl Mcgregor, and now is having tirgeminal neralgia reocurrence. pt to see neurology to eval. no acute concerns. AMD- DNIF Capt Jeremiah Jones DO Flight Surgeon, [address] [employer] Extracted from:Title: [facility] - profile update Author: JULIANNE JONES, Date: 04/25/24 1. COVID-19 asymptomatic, but pt deconditioned, will modify profile to allow for sufficeint time to recover and pass PT test AMD- NO CHANGE TO FLYING STATUS BASED ON THIS ENCOUNTER Capt Jeremiah Jones DO Flight Surgeon, [address] [employer] Extracted from:Title: URI_IDMT Author: ERNESTO OLVERA Date: 02/15/24 Common cold Based upon history, symptoms, and physical exam; pt will be treated for Viral URI. Pt placed on DNIF x 7days and placed on 72hrs quarters. Pt prescribed Mucinex-D and Motrin. Pt advised to f/u with clinic within days to RTFS. Report to the ER in the event of chest pain, shortness of breath, fever over 100.4, or 10/10 pain. DDX: Allergic Rhinitis: Turbinates erythemic Bronchitis/Pneumonia: Lungs CTA Strep: Negative Centor Criteria FLU/COVID/RSV: Awaiting test results Patient is DNIF X 7 days NO FR MR from this encounter. Quarters :N WWQ from this encounter - Y Meets retention standards from this encounter - Y ERNESTO OLVERA, [facility], MSgt, IDMT [employer] [facility], [employer], [place] Ordered: ibuprofen(ibuprofen 800 mg oral tablet), 1 tab(s), Oral, every 8 hr, X 10 days, # 30 tab(s), 0 total refill(s), Acute, 02/25/2024, 1 tab(s) Oral every 8 hr,x10 days, Pharmacy: [facility] [Not filled] pseudoephedrine-guaifenesin(Mucine x D Max Strength 120 mg-1200 mg oral tablet, extended release), 1 tab(s), Oral, every 12 hr, X 14 days, # 28 tab(s), 0 total refill(s), Acute, 1 tab(s) Oral every 12 hr,x14 days, Pharmacy: [facility] [Not filled] SC2/FLU A/FLU B/RSV PCR Strep Group A PCR Extracted from:Title: Neurology - hx of trigeminal neuralgia NAKITA Author: REFUGIO PRESCOTT MD Date: 01/11/24 1. Trigeminal neuralgia 38 year old man with history of trigeminal neuralgia on the right s/p microvascular decompression in September 2022 that has resulted in complete relief of right-sided symptoms. He has no residual symptoms of trigeminal neuralgia and requires no additional therapies for this condition at this time. From a pure neurology/medical standpoint, the patient does not need scheduled follow up and can be seen on an as needed basis. The patient and I discussed that he may be required to return from an [employer] standpoint though. All questions answered to the best of my abilities. Activity restrictions and duration WWQ - Yes Refer to DAWG or IRILO - No DR/MR/FR resulting from this encounter? No Member meets retention standards? From a neurologic perspective, yes. The patient no longer meets MSD criteria as outlined in MSD, [id number], L25 since his condition has completely subsided. I spent >30 minutes on this patient's care on the date of service outside of any procedure time. This includes but is not limited to reviewing prior tests, obtaining/reviewing history, performing a medically appropriate examination, counseling, ordering medications/tests/procedures, referring and communicating with other professionals, documenting clinical information in the health record, and independently interpreting results. Refugio Prescott MD, MS Abdi, [facility], Adult Neurology and Neuromuscular Medicine [place], [place] Extracted from:Title: Flt Med PHA Author: ROBERTO CHARLES MD Date: 05/26/23 1. 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 Visual screening reviewed (Meets requirements), audiogram reviewed (H1), vitals signs reviewed (WNL). He has had a successful surgery for his trigeminal neuralgia and does not have significant sequelae and should not need waiver as per MSD L25 as he has no functional deficits and no aeromedical concerns related to prior history of. - No CV restrictions identified. - No other patient complaints, questions or concerns. - Aeromedical Disposition: Will unsuspend he needs to complete PHA in [facility] to complete new 2992 2. 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 Trigeminal neuralgia 37 year old man with trigeminal neuralgia on the right now s/p microvascular decompression in September 2022 that has resulted in complete relief of right-sided symptoms. Discussed today some left-sided symptoms that are similar to in the past (less severe than the right), and possible etiologies including but not limited to idiopathic trigeminal neuralgia (given no clear structural cause on MRI X2, last in Aug 2022) vs. dental/TMJ-related. We discussed options moving forward including patient seeing dental, starting on gabapentin empirically, repeat imaging. We agreed at this time for the patient to see dental / orofacial pain, without restarting medication therapy. Separately, I reviewed the Referral management system and informed him that his Neurosurgery referrals that were placed were all cancelled because he is already established. There is no clear indication that he needs to return to see them for the left-sided symptoms at this time. The patient may return to this clinic on an as needed basis. All questions were answered to the best of my abilities. For references in case of an ER visit, for rescue treatment in the setting of an acute exacerbation of trigeminal neuralgia, IV fosphenytoin is the treatment of choice combined with rehydration when presenting to the ER. A reasonable dose is 20mg PE (phenytoin equivalents)/kg IV with a max dose of 1500mg (based on today's weight, patient would receive max dose) Activity restrictions and duration WWQ - Yes from a neurology standpoint Refer to ROBEL or LATONIA - No DR/MR/FR resulting from this encounter? No Member meets retention standards? Patient currently falls under MSD, [id number], L25 I spent >30 minutes on this patient's care on the date of service. This includes but is not limited to reviewing prior tests, obtaining/reviewing history, performing a medically appropriate examination, counseling, ordering medications/tests/procedures, referring and communicating with other professionals, documenting clinical information in the health record, and independently interpreting results. Refugio Prescott MD, MS Abdi, [facility], Adult Neurology and Neuromuscular Medicine [place], [place] Extracted from:Title: Office Clinic Note Author: WILL TREVIZO MD Date: 11/04/22 Much improved after microvascular decompression for trigeminal neuralgia with complete relief of right-sided facial pain. Recommend increase activity slowly as tolerated. Taper the gabapentin slowly, he may maintain the medication at a small dose to address the left-sided pain. He has a as needed appointment in the clinic. Extracted from:Title: Discharge Note Author: RAJINDER HODGES PA Date: 10/21/22 Trigeminal neuralgia Patient to discharge in stable condition. See pre-printed post-operative instructions. Discharge medications: Arvada and Colace. Follow up appointment:Please call to confirm follow up appointment is scheduled for 10-14 days after surgery at [facility]surgery [facility] [phone]. Ordered: Admit to Inpatient Orders: acetaminophen(acetaminophen), 650 mg, Oral, Tablet, every 6 hr, PRN pain (mild), First Dose: 10/21/2022 12:47:00 PDT, 10/21/2022 12:47:00 PDT docusate(Colace), 100 mg, Oral, Capsule, BID, First Dose: 10/21/2022 21:00:00 PDT, 10/21/2022 12:47:00 PDT docusate(Colace 100 mg oral capsule), 1 cap(s), Oral, BID, PRN constipation, # 60 cap(s), 0 total refill(s), Maintenance, 1 cap(s) Oral BID,PRN:as needed for constipation, Pharmacy: [facility] [Not filled] hydrALAZINE(hydrALAZINE), 5 mg, IV Push (Intravenous), Injection, every 1 hr, PRN hypertension (see comment), First Dose: 10/21/2022 12:47:00 PDT, 10/21/2022 12:47:00 PDT labetalol(labetalol), 5 mg, IV Push (Intravenous), Injection, every 1 hr, PRN hypertension (see comment), First Dose: 10/21/2022 12:47:00 PDT, 10/21/2022 12:47:00 PDT polyethylene glycol 3350(MiraLax), 17 g, Oral, Powder-Oral, BID, PRN constipation, First Dose: 10/21/2022 12:47:00 PDT, 10/21/2022 12:47:00 PDT morphine(morphine), 2 mg, IV Push (Intravenous), Injection, every 2 hr, PRN breakthrough pain, First Dose: 10/21/2022 12:47:00 PDT HYDROcodone-acetaminophen(Arvada 10 mg-325 mg oral tablet), 1 tab(s), Oral, Tablet, every 4 hr, PRN pain (severe), First Dose: 10/21/2022 12:47:00 PDT, 10/21/2022 12:47:00 PDT HYDROcodone-acetaminophen(Arvada 10 mg-325 mg oral tablet), 1 tab(s), Oral, every 4 hr, PRN pain (severe), # 40 tab(s), 0 total refill(s), Acute, 10/29/2022, 1 tab(s) Oral every 4 hr,PRN:pain (severe), Pharmacy: [facility] [Not filled] HYDROcodone-acetaminophen(Arvada 5 mg-325 mg oral tablet), 1 tab(s), Oral, Tablet, every 4 hr, PRN pain (moderate), First Dose: 10/21/2022 12:47:00 PDT, 10/21/2022 12:47:00 PDT sodium chloride 0.9% 1,000 mL(normal saline drip 1,000 mL), IV Drip (Intravenous), Order Rate: 70 mL/hr, Order Weight: 120.2 kg, Start Date: 10/21/2022 12:47:00 PDT senna(senna), 8.6 mg, Oral, Tablet, BID, First Dose: 10/21/2022 21:00:00 PDT, 10/21/2022 12:47:00 PDT ondansetron(Zofran), 4 mg, IV Push (Intravenous), Injection, every 6 hr, PRN nausea, First Dose: 10/21/2022 12:47:00 PDT, 10/21/2022 12:47:00 PDT Consult to Discharge Planning Clear Liquid Diet ABORh Retype Basic Metabolic Panel CBC w/ Diff PT and INR PTT Type and Screen Bedside Incentive Spirometry Bedside Incentive Spirometry Clinical Condition Communication Order Discontinue IV Fluids Head of Bed Intake and Output Intermittent pneumatic compression devices Intermittent pneumatic compression devices Intermittent pneumatic compression devices Neurological Checks Notify Treating Provider Neuro Specialty Notify Treating Provider Temperature Patient Education Straight Catheter Up ad Jillian Up with Assistance Urinary Catheter Urinary Catheter Discontinue Vital Signs Physical Therapy (PT) Inpatient Evaluation and Treatment CT Brain/Head w/o Contrast Oximetry - Continuous Oxygen Therapy Addendum by RAJINDER HODGES PA on October 23, 2022 08:05:32 PDT patient post op stable. dc home today. Extracted from:Title: Office Clinic Note Author: MAYRA ARCINIEGA IDMT Date: 10/13/22 1. 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 We discussed and implemented the treatment plan according to standard protocol. I have reviewed the note and concur with the findings as documented. AMD- NO DNIF; WWQ, No AMRO/IRILO/MEB or // based on this encounter Capt Elena Mc MD, [facility] Flight Surgeon [employer] [place] [address], [place] Extracted from:Title: Neurology - trigeminal neuralgia Author: REFUGIO PRESCOTT MD Date: 08/19/22 1. Trigeminal neuralgia 36 year old man with symptoms since late 2020 originally in the right V1/V2>V3 distributions but now with bilateral symptoms most consistent with diagnosis of trigeminal neuralgia. MRI X2 have demonstrated vascular contact with the right trigeminal nerve near the root entry zone, but not the left. Gabapentin 600mg TID had been helpful, but he recently had a severe flare, requiring treatment in the ER, responding to fosphenytoin infusion, as directed in my previous clinical note. The patient and I discussed multiple options moving forward: 1) increase dose of gabapentin, 2) transition to carbamazepine or oxcarbazepine, or 3) neurosurgical consultation. Through joint decision making, we agreed to the following plan: - increase gabapentin dose to up to 900mg TID (new script for 300mg capsules written today) - neurosurgery consultation - new order for MRI brain to compare to prior studies. All questions were answered to the best of my abilities. The patient will follow up with me as needed to assist with future steps. As stated previously, for rescue treatment in the setting of an acute exacerbation, IV fosphenytoin is the treatment of choice combined with rehydration when presenting to the ER. A reasonable dose is 20mg PE (phenytoin equivalents)/kg IV with a max dose of 1500mg (based on today's weight, patient would receive max dose) Ordered: MRI Brain w/ + w/o Contrast Referral Request 2.0 Orders: gabapentin(gabapentin 300 mg oral capsule), See Instructions, take up to three capsules by mouth three times per day, as directed by your physician, # 810 cap(s), 2 total refill(s), Maintenance, take up to three capsules by mouth three times per day, as directed by your physician, Pharmacy: [facility]... Activity restrictions and duration WWQ - Yes Refer to DAWG or IRILO - Not at this time DR/MR/FR resulting from this encounter? Not at this time Member meets retention standards? Patient currently falls under MSD, [id number], L25 >50% of the time with this patient were spent counseling or coordinating care including discussion of diagnosis, prognosis, and various treatments detailed in the assessment and plan above. Refugio Prescott MD, MS Major, [facility], Adult Neurology and Neuromuscular Medicine [facility], [place], [place] Addendum by PHIL LE MD on August 19, 2022 13:53:20 PST Greatly appreciate Neuro assistance with this pt. AMD- CONTINUE DNIF Capt Phil Le MD Flight Surgeon, [address] [facility], [place] Extracted from:Title: Neurology FTR Author: REFUGIO PRESCOTT MD Date: 03/13/22 Atypical facial pain 35 year old man with symptoms since late 2020 in the right V1/V2>V3 distributions with MRI demonstrating vascular contact with the right trigeminal nerve near the root entry zone. Clinically, the patient does not meet full criteria for trigeminal neuralgia, given his lack of precipitation by innocuous stimuli; however, given the imaging findings and distribution of symptoms, this is likely the cause. He has done well on gabapentin, currently at 600mg TID, which he increased recently. Given his increase in symptoms and involvement of the contralateral side, discussed that he could increase to 900mg TID then 1200mg TID if desired. In the event that gabapentin is not beneficial, f or long-term treatment, carbamazepine (Tegretol) and oxcarbazepine (Trileptal) are considered first line, with carbamazepine having the best evidence as a termite control representative treatment modality, but is less well tolerated than oxcarbazepine. We previously discussed the following most common adverse effects of these medications: drowsiness, headache, fatigue, nausea, hyponatremia. I previously ordered baseline labs in preparation for this, but they were not done so I am ordering them again today (CBC with differential, iron panel, CMP, [id number]). Given his new symptoms on the left side, will order repeat MRI for further evaluation, in preparation also for possible visit back with neurosurgery. For rescue treatment in the setting of an acute exacerbation, IV fosphenytoin is the treatment of choice combined with rehydration when presenting to the ER. A reasonable dose is 20mg PE (phenytoin equivalents)/kg IV with a max dose of 1500mg (based on today's weight, patient would receive max dose) All questions answered to the best of my abilities. Ordered: MRI Brain w/ + w/o Contrast Orders: CBC w/ Diff Comprehensive Metabolic Panel Iron Studies Miscellaneous Sendout Activity restrictions and duration WWQ - Yes Refer to DAWG or IRILO - No DR/MR/FR resulting from this encounter? No Member meets retention standards? From a neurologic perspective, yes >50% of the time with this patient were spent counseling or coordinating care including discussion of diagnosis, prognosis, and various treatments detailed in the assessment and plan above. Refugio Prescott MD, MS Abdi, [facility], Adult Neurology and Neuromuscular Medicine [facility], [place], [place] Addendum by ELENA JESUS MD on March 16, 2022 17:42:43 PDT AMD- Cont DNIF Capt Elena Mc MD Flight Surgeon, [address], [employer] Extracted from:Title: [facility]: F/u atypical facial pain Author: ELENA JESUS MD Date: 02/17/22 1. Atypical facial pain Bl facial sharp pain x 7 months despite 1500mg gabapentin total daily dose without improvement. Exam overall unremarkable today. Request reeval with neuro now that pain is BL. Original thought of vessel abutting trigeminal nerve on right side as possible source of pain, however NSYG preferred medical management if possible, now pain also on left side with unclear source. Consider ongoing atypical facial pain, trigeminal neuralgia, atypical ACEVEDO, less likely shingles given distribution, TMJD not demonstrated on imaging. 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 AMD- DNIF; WWQ, No AMRO/IRILO/MEB or FR// based on this encounter Capt Elena Mc MD Flight Surgeon, [address], [employer] Extracted from:Title: Neurology SPEC - atypical facial pain (likely trigeminal neuralgia) Author: REFUGIO PRESCOTT MD Date: 09/11/21 1. Atypical facial pain 35 year old man with approximately 3 months of symptoms in the right V1/V2>V3 distributions with MRI demonstrating vascular contact with the right trigeminal nerve near the root entry zone. Clinically, the patient does not meet full criteria for trigeminal neuralgia, given his lack of precipitation by innocuous stimuli; however, given the imaging findings and distribution of symptoms, this is likely the cause. He has done well on gabapentin, currently at 300mg TID. We discussed that while this is not considered first line therapy, if he is doing well, there is no reason to change. I counseled him that he can increase this to up to 1200mg TID, as long as he is tolerating this fine. In the event that gabapentin is not beneficial, f or long-term treatment, carbamazepine (Tegretol) and oxcarbazepine (Trileptal) are considered first line, with carbamazepine having the best evidence as a assisted treatment modality, but is less well tolerated than oxcarbazepine. We discussed the following most common adverse effects of these medications: drowsiness, headache, fatigue, nausea, hyponatremia. In preparation for this, I am ordering baseline labs needed (CBC with differential, iron panel, CMP, [id number]), since I do not see any in [place]. For rescue treatment in the setting of an acute exacerbation, IV fosphenytoin is the treatment of choice combined with rehydration when presenting to the ER. A reasonable dose is 20mg PE (phenytoin equivalents)/kg IV with a max dose of 1500mg (based on today's weight, patient would receive max dose) There is no need for follow up in this clinic given he is actively being managed by neurosurgery. All questions answered to the best of my abilities. Orders: CBC w/ Diff Comprehensive Metabolic Panel Iron Studies Miscellaneous Sendout Activity restrictions and duration WWQ - Yes Refer to DAWG or IRILO - No DR/MR/FR resulting from this encounter? No Member meets retention standards? From a neurologic perspective, yes >50% of the time with this patient were spent counseling or coordinating care including discussion of diagnosis, prognosis, and various treatments detailed in the assessment and plan above. Refugio Prescott MD, MS [place], [facility], Adult Neurology and Neuromuscular Medicine [place], [place] No qualifying data available. Extracted from:Title: [facility]: Jaw pain/ER follow-up Author: ELENA JESUS MD Date: 08/05/21 1. Jaw pain 35M s/p left parotidectomy for malignant neoplasm with chronic right jaw pain, dull and achy with intermittent sharp pain with moderate improvement s/p ketamine in ED last night and 1day of gabapentin 300mg TID and hydrocodone 5mg PRN. Member already followed by [facility] with pending MRI, pt to f/u with dental tomorrow to review results and plan moving forward. Differential to include trigeminal neuralgia vs TMJD, although sahrma-xray of jaw was unremarkable at the TMJ, otherwise no evidence of new mass, obvious deformity on CT or other intrasinus etiology at this time. Will continue to follow patient and specialty recommendations. -Defer medical/pharmacologic management to specialist (pain specialist with dental; although flight med may facilitate med refills based on specialty recommendations). Current ER discharge meds as follows: --Gabapentin 300mg TID (per [facility] recs) --[place] 5mg Q4-6hr PRN for pain --Zofran PRN for nausea -continue cold water rinses to help with tooth/jaw pain PRN -ER precautions reviewed -Pt to f/u with dental for MRI read review and additional management recs. 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 AMD- DNIF for medication use WWQ, No AMRO/IRILO/MEB or FR/MR/ based on this encounter; however if requires surgery, specialty follow-up frequently or risk for incapacitation, may require additional restrictions Capt Elena Mc MD Flight Surgeon, [address], [employer] Extracted from:Title: new chiro Office Clinic Note, neck, Rt arm Author: IVAN JACOB DC Date: 06/24/21 1. Degeneration of thoracic intervertebral disc Activator protocol LPD S/L, LPI. HVLA PA mid T, CT inf fix BL. Ordered: Office Visit Level 3 [facility] 2. Cervical segmental dysfunction Ordered: Office Visit Level 3 3. Sacral somatic dysfunction Ordered: Office Visit Level 3 Addendum by RAYA BRADSHAW MD on June 25, 2021 09:54:23 PST AMD- NO DNIF FOR THIS ENCOUNTER RAYA BRADSHAW MD, SENIOR FLIGHT SURGEON, [facility] Extracted from:Title: ENT Clinic Note Author: MD ROBERT, KARTIK WILLIS MD Date: 01/20/21 1. Postoperative visit Ordered: Postop [place] [id number] Extracted from:Title: ENT Clinic Note- Preop septoturbinoplasty Author: MD ROBERT, KARTIK WILLIS MD Date: 01/07/21 1. Nasal obstruction 34 yo M with left sided nasal congestion with exam notable for leftward deviated septum abutting inferior turbinate. His symptoms are not resolved with flonase. He would be a good candidate for septoturbinoplasty. I have extensively discussed the risks, benefits, and alternatives to a septoturbinoplasty. He is interested in having surgery. We have discussed the operative details, risk of bleeding, infection, pain, scar, numbness, risks of anesthesia, recurrence of nasal obstruction, need for additional surgery, septal perforation, septal hematoma. Patient is aware that splints will be placed in the nose postoperatively for healing purposes. The patient understands. All questions were addressed and answered. Will plan for 01/15/2021. Consent signed in clinic. Will place preop covid test Kartik Dowell M.D. Staff Hand Shoes Sewer [facility] Dept of Otolaryngology-Head and Neck Surgery History 34 yo M referred to ENT for evaluation of nasal breathing. He was set for septoturbinoplasty in May 2020, however had to cancel. No changes since last being seen. He notes that 17 years ago he had facial trauma but never got treated. He notes that since then, he has always had left sided nasal obstruction. He states he was previously seen by an ENT and prescribed flonase, however notes that it has not benefited him much. Notes left sided nasal congestion, usually at night. Also notes dryness to his left nostril. No epistaxis. Patient currently without fevers, chills, sweats, wt loss. No bleeding d/o or anesthesia complications. 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 Patient was followed for 3 years postoperatively without evidence of disease. He is doing fine from that standpoint. Physical Exam Current VS reviewed. No abnormalities noted. GEN: WD/WN in NAD Alert and Oriented, normal mood and affect NL voice and communication HEAD/FACE: Normocephalic/Normal facial exam No tenderness to sinus palpation NL salivary glands NL facial strength EOMI, NL gaze alignment EARS: NL pinnas bilaterally NL clinical speech threshold RIGHT EAR: NL EAC, TM without evidence for perforation, retraction, or effusion LEFT EAR: NL EAC, TM without evidence for perforation, retraction, or effusion NOSE: NL external nose leftward deviated septum abutting inferior turbinate. No caudal involvement Inferior nasal turbinates 2/4 bilaterally OC/OP: NL lips, teeth, gingiva NL oral mucosa, hard and soft palate, tongue, tonsils, and post pharynx by visual inspection NECK: NL Thyroid Exam No lymphadenopathy RESP: Chest rise symmetric with normal expansion and respiratory effort PVS: Upper extremities without clubbing, cyanosis, edema, or varicosities NEURO: CN II-XII grossly intact. Procedure: Flexible Fiberoptic Laryngoscopy: Topical anesthetic and decongestant were applied to both nasal passages. The inferior and middle turbinates were normal. No pus, polyps, or masses were observed. Nasopharynx was normal. Unremarkable adenoid tissue. The base of tongue, vallecula, epiglottis, and pyriform sinuses were normal without lesions or masses. The right TVC was normal in appearance and mobility. The left TVC was normal in appearance and mobility Ordered: SARS-CoV-2 PCR Septoplasty 2. Deviated nasal septum Ordered: SARS-CoV-2 PCR Septoplasty 3. Hypertrophy of nasal turbinates Ordered: SARS-CoV-2 PCR Septoplasty Addendum by ROBINSON ALONSO on January 08, 2021 16:23:32 PDT Aeromedical Disposition: Continue DNIF/DNIC. Extracted from:Title: ENT Clinic Note Author: KARTIK DOWELL MD Date: 05/14/20 1. Nasal congestion 34 yo M with left sided nighttime nasal congestion with exam notable for leftward deviated septum abutting inferior turbinate. His symptoms are not resolved with flonase. He would be a good candidate for septoturbinoplasty. I have extensively discussed the risks, benefits, and alternatives to a septoturbinoplasty. He is interested in having surgery. We have discussed the operative details, risk of bleeding, infection, pain, scar, numbness, risks of anesthesia, recurrence of nasal obstruction, need for additional surgery, septal perforation, septal hematoma. Patient is aware that splints will be placed in the nose postoperatively for healing purposes. The patient understands. All questions were addressed and answered. Will plan for 14Jun2020. Consent signed in clinic. Kartik Dowell M.D. 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 ) Treated With [26] OPERATIONS ON SALIVARY GLANDS AND DUCTS Any recurrence of disease requires DNIF, full medical evaluation and treatment, and submission of a new waiver request. Expires: Indef All Medical Readiness requirements up to date: YES(Dental, labs, Immunizations) DISTANT VA (uncorrected) R-20/20 L-20/20 NEAR VA (uncorrected) R-20/ 20 L-20/20 HETEROPHORIA: ES: 0 (WNL: equal/less than 15 prism diopters for nonscanner, WNL: equal/less than prism diopters for scanner) EX: 3 (WNL: equal/less than 8 prism diopters for nonscanner, WNL: equal/less than 6 prism diopters for scanner) RH: 0 (WNL: equal/less than 2 prism diopters for nonscanner, WNL: equal/less than 1.5 prism diopters for scanner) LH: 0 (WNL: equal/less than 2 prism diopters for nonscanner, WNL: equal/less than 1.5 prism diopters for scanner) DEPTH PERCEPTION: PASS - D Extracted from:Title: Ambulatory Patient Education Author: DELANO BUITRAGO MD Date: 04/05/19 Patient Education Materials Follows: Future Scheduled TestsLaboratoryHemoglobin A1c 11/06/24Comprehensive Metabolic Panel 11/06/24Lipid Panel 11/06/24 05/30/2025 Unknown Organization Functional Status Combined list of recent functional and cognitive assessments recorded at [facility] [employer] [facility] ([facility] Functional [place] Measurement (FIM) Scale: 1 = Total Assistance (Subject = 0% +), 2 = Maximal Assistance (Subject = 25% +), 3 = Moderate Assistance (Subject = 50% +), 4 = Minimal Assistance (Subject = 75% +), 5 = Supervision, 6 = Modified [place] (Device), 7 = Complete [place] (Timely, Safely). Assessment Date/Time Source Assessment Type Assessment Skill Assessment Score Assessment Details FUNCTIONAL 10/23/22Cur rent Home Treatments None Home Equipment Other: none Professional Skilled Services Other: none Special Services and Community Resources Other: none 10/23/22ADLs Independent Activity Status ADL Ambulating, Bathroom privileges, Reposition every 2 hours Positioning/Pressure Reducing Devices Pillow Patient Position Head of bed elevated, Self repositioning Tolerance of Position Tolerates well Diet Type REG Personal Care Provided Teeth brushed 10/22/22Lifting Equipment Friction reducing device (slide board/sheet) 10/22/22Living Environment No Living Environment Information Available Lives In Single level home Lives With Spouse Living Situation Home independently Home Barriers None Patient's 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
[2025-05-29 23:54] VITALS: BP 173/115; PULSE 74; RESP 21; TEMP 36.7; O2SAT 100
[2025-05-30] MEDS: HYDROcodone/acetaminophen (*CRX) 5-325 MG TABLET 2 TAB PO (03:30)
--- NOTE | 2025-05-30 03:37 | ED_ITS ---
HPI - General Adult General Chief complaint: Dental/Oral Stated complaint: right tooth nerve pain Time Seen by Provider: 05/30/25 03:07 History of Present Illness HPI narrative: This is a 39-year-old male with history of trigeminal neuralgia treated with surgery presenting with right-sided facial pain. Patient had a root canal 2 days ago and since then has been having right-sided facial pain. He says it feels very similar to his try an MRI terminal neuralgia that he had past. Related Data Allergies Allergy/AdvReac Type Severity Reaction Status Date / Time No Known Allergies Allergy Verified 05/29/25 02:38 Exam Narrative: APPEARANCE: No apparent distress. Head: no sign of abscess or infection mouth EYES: EOMI, NOSE: Atraumatic NECK: Trachea midline RESPIRATORY: No increased rate of breathing CARDIOVASCULAR: RRR, ABDOMINAL: Non-distended MUSCULOSKELETAl: No obvious deformities NEURO: Alert. Moving 4/4 extremities SKIN:: Warm, dry. Normal color PSYCHIATRIC: Normal affect Course Vital Signs Vital signs: Vital Signs Temperature 98.1 F 05/29/25 23:54 Pulse Rate 74 05/29/25 23:54 Respiratory Rate 21 H 05/29/25 23:54 Blood Pressure 173/115 H 05/29/25 23:54 Pulse Oximetry 100 05/29/25 23:54 Oxygen Delivery Room Air 05/29/25 23:54 Temperature 98.1 F 05/29/25 23:54 Pulse Rate 74 05/29/25 23:54 Respiratory Rate 21 H 05/29/25 23:54 Blood Pressure 173/115 H 05/29/25 23:54 Pulse Oximetry 100 05/29/25 23:54 Oxygen Delivery Room Air 05/29/25 23:54 Procedures Nerve Block Nerve Block 1: Nerve block date: 05/30/25 Local Anesthetic: bupivacaine 0.25% Amount of anesthesia used (mL): 3 Side: right Intraoral Nerve Block: inferior alveolar Procedure Successful: Yes Patient Tolerated Procedure: well Complications: none Medical Decision Making MDM Narrative Medical decision making narrative: -Course: 39-year-old male presenting with right-sided facial pain 2 days after having a root canal. Patient's pain was treated with [place] and inferior alveolar block was performed with some relief. Patient will follow-up with his primary care physician tomorrow. Given return precautions. -DDX includes but is not limited to: Referred pain from dental surgery, trigeminal neuralgia Vital Signs Vital Signs: Vital Signs Temperature 98.1 F 05/29/25 23:54 Pulse Rate 74 05/29/25 23:54 Respiratory Rate 21 H 05/29/25 23:54 Blood Pressure 173/115 H 05/29/25 23:54 Pulse Oximetry 100 05/29/25 23:54 Oxygen Delivery Room Air 05/29/25 23:54 Temperature 98.1 F 05/29/25 23:54 Pulse Rate 74 05/29/25 23:54 Respiratory Rate 21 H 05/29/25 23:54 Blood Pressure 173/115 H 05/29/25 23:54 Pulse Oximetry 100 05/29/25 23:54 Oxygen Delivery Room Air 05/29/25 23:54 Discharge Plan Discharge Clinical Impression: Toothache Patient Disposition: Home Condition: Stable Instructions: Antibiotic Form, Toothache (ED) Additional Instructions: Please use Motrin and Tylenol for pain. Please follow-up with your primary care physician further management. If you develop any new or worsening symptoms return to the ED re-evaluation. Patient Language: Norwegian Prescriptions: No Action oxycodone 5 mg tablet 5 mg PO Q8H PRN (Reason: pain) Qty: 14 0RF carbamazepine [Tegretol] 200 mg tablet 200 mg PO Q12H Qty: 60 0RF carbamazepine [Tegretol] 200 mg tablet 200 mg PO Q12H Qty: 60 0RF Follow-up/Referrals: PHYSICIAN,LITHOGRAPHIC PHOTOGRAPHER [Primary Care Provider, Internal Medicine] Stand Alone Forms: Work/School Release IP
[2025-05-30 03:57] VITALS: BP 141/99; PULSE 62; RESP 18; O2SAT 98
== END 2025-05-30 04:02 | disposition home or self-care (01) ==
PROVIDERS: Emergency Provider Emergency Medicine
DX: K08.89 Other specified disorders of teeth and supporting structures (principal); G50.0 Trigeminal neuralgia
CPT/HCPCS: 64400; 99283; A9270